=== PATIENT | male | born 1940 | race Caucasian/White ===

== ENCOUNTER 2017-02-05 11:11 | Emergency (ER) | payer MEDICARE ==
[~2017-02-05] VITALS: Ht 188 cm; Wt 101.5 kg
[~2017-02-05 11:11] MED LIST: ALBU18HF2 ORAL INH; ALLO300T74 PO; CITA-108 PO; FLUT1DIS3 ORAL INH; LORA10TA44 PO; MONT10TA25 PO; OMEP20TA2 PO; RANI150T7 PO; SULF1TAB42 PO; VIT-10 PO; [UNRECOGNIZED DRUG - CODE] PO
[2017-02-05 11:15] VITALS: Ht 188 cm; Wt 101.5 kg
--- OUTSIDE RECORDS SUMMARY | 2017-02-05 11:15 | XMS REPORT | Referral Summary ---
Author Author [facility] Organization [facility] Address Unknown Phone Unavailable Care Team Providers Care Manager Store Name Role Phone Oskar Wynne Primary Care Physician [phone] Encounter VC Date(s): 06/12/15 - 06/12/15 [facility] [address] [place] [address] [facility] Discharge Diagnosis: Mild persistent asthma with (acute) exacerbation Discharge Diagnosis: Acute frontal sinusitis, unspecified Discharge Disposition: 01-Home or Self Care Attending Physician: Provider, Immediate Care Admitting Physician: Provider, Immediate Care Vital Signs Most recent to 1 oldest [Reference Range]: Temperature Oral 36.3 degC [35.8-37.3 degC] (06/12/15 1:59 PM) Peripheral Pulse 78 bpm Rate [60-100 bpm] (06/12/15 1:59 PM) Blood Pressure 156/65 mmHg [90-140/60-90 mmHg] *HI* (06/12/15 1:59 PM) SpO2 94 % (06/12/15 1:59 PM) Problem List Condition Effective Dates Status Health Status Informant Aching Active headache(Confirmed) Acute Active bronchitis(Confirmed ) COPD Active exacerbation(Confirm ed) Acute Active anxiety(Confirmed) Benign essential Active hypertension(Confirm ed) Bladder Active problem(Confirmed) Bladder Active stones(Confirmed) Bronchitis(Confirmed Active ) Chicken Active pox(Confirmed) Depression(Confirmed Active ) Depression(Confirmed Active ) Dizziness(Confirmed) Active Atypical Active nevi(Confirmed) Exposure to Active excessive natural heat(Confirmed) Fatty Active liver(Confirmed) Gout(Confirmed) Active Hepatitis(Confirmed) Active Hypercalcemia(Confir Active med) Hypertension(Confirm Active ed) Jaundice(Confirmed) Active Kidney Active disease(Confirmed) Kidney Active stones(Confirmed) Lower back Active pain(Confirmed) Methicillin Active resistant Staphylococcus aureus(Confirmed) 2 Asthma(Confirmed) Active Overweight(Confirmed Active ) Prostatism(Confirmed Active ) Renal Active insufficiency(Confir med) RLS (restless legs Active syndrome)(Confirmed) Seizures(Confirmed)1971 Active Sinus Active infections(Confirmed ) 1Urine from NOT FOUND collected 06/02/15 14:30:00 CDT 2Abscess from Back collected 08/07/14 14:34:00 CDT 3none since 1971 Allergies, Adverse Reactions, Alerts No Known Medication Allergies Medications Advair Diskus 250 mcg-50 mcg inhalation powder 1 puffs, Inhalation, Daily, # 3 Each, 1 Refill(s), Pharmacy: [facility] Start Date: 10/06/15 Status: Ordered albuterol CFC free 90 mcg/inh inhalation aerosol 1 puffs, Inhalation, q4hr, as needed for wheezing, # 18 g, 0 Refill(s) Start Date: 06/01/14 Status: Ordered allopurinol 300 mg oral tablet 300 mg 1 tabs, Oral, Daily, Fax to [employer] , # 90 tabs, 1 Refill(s), Pharmacy: [facility], 1 tabs Oral Daily,Instr:Fax to [employer] Start Date: 10/06/15 Status: Ordered CeleXA 40 mg oral tablet 40 mg 1 tabs, Oral, Daily, fax to [employer] , # 90 tabs, 1 Refill(s), [facility], 1 tabs Oral Daily,Instr:fax to [employer] Start Date: 10/06/15 Status: Ordered lisinopril-hydrochlorothiazide 20 mg-25 mg oral tablet 1 tabs, Oral, Daily, Fax to [phone], # 90 tabs, 1 Refill(s), [facility] Start Date: 10/06/15 Status: Ordered meloxicam 7.5 mg oral tablet 7.5 mg 1 tabs, Oral, BID, # 40 tabs, 0 Refill(s), Pharmacy: [facility] # [id number], 1 tabs Oral BID,x20 days Start Date: 10/05/15 Stop Date: 10/25/15 Status: Ordered Nasacort AQ 1 sprays, Nasal, Daily, 0 Refill(s) Start Date: 06/18/15 Status: Ordered Singulair 10 mg oral tablet 10 mg 1 tabs, Oral, qPM, # 90 tabs, 1 Refill(s), Pharmacy: [facility], 1 tabs Oral qPM Start Date: 10/06/15 Status: Ordered Vitamin B12 0 Refill(s) Start Date: 10/05/15 Status: Ordered Vitamin C 0 Refill(s) Start Date: 06/02/15 Status: Ordered Zantac 150 oral tablet 1 tabs, Oral, Bedtime (once a day), # 30 tabs, 0 Refill(s) Start Date: 04/13/14 Status: Ordered Results No data available for this section Immunizations Vaccine Date Refusal Reason tetanus/diphth/pertuss (Tdap) adult/adol 01/05/10 tetanus-diphth toxoids (Td) adult/adol 11/21/95 Procedures Procedure Date Related Diagnosis Body Site S/P parathyroidectomy 07/2010 laceration repair L thumb 01/05/10 S/P colonoscopy with polypectomy1 11/26/09 S/P bilateral cataract extraction 2007 open removal of kidney stone on right 1998 S/P cardiac catheterization 1996 H/O umbilical hernia repair 1979 S/P operative procedure on shoulder, left 1959 H/O circumcision H/O lithotripsy x4-5, bilateral prostate surgery S/P vasectomy 1showed hyperplastic polyp; plan repeat in 10 years (11/26/2019), however pt will be 79 years of age and risk may outweigh benefit to pt Social History Social History Type Response Smoking Status Former smoker; Type: Cigarettes Assessment and Plan Extracted from: Title: Sinusitis 10192 Author: Roberto Edwards MD Date: 06/12/15 Assessment/Plan 1.Acute frontal sinusitis, unspecified I do think he has a persistent bacterial infection that is not resolved. It's possible this could even be sphenoid sinusitis as well as frontal sinusitis. I certainly think antibiotic treatment is indicated. Mild persistent asthma with (acute) exacerbation Very minimally changed and he is not so tight that I think he needs steroids or other aggressive therapy. No other signs of respiratory insufficiency. Plan: I will have him begin Augmentin 875 twice a day. 20. I will also have him begin [id number] Flonase nasal spray, 2 sprays in each nostril twice a day for now. Continue all of his other medications and inhalers in therapy. If he worsens, get back here or see Dr. Wynne. Apparently he hasn't appointment to see Dr. Wynne this next week. Orders: amoxicillin-clavulanate, 1 tabs, Oral, q12hr, X 10 days, # 20 tabs, 0 Refill(s), Pharmacy: [facility] #[id number]
--- OUTSIDE RECORDS SUMMARY | 2017-02-05 11:16 | XMS REPORT | Referral Summary ---
Author Author [facility] Organization [facility] Address Unknown Phone Unavailable Care Team Providers Care Russian Teacher Name Role Phone Oskar Wynne Primary Care Physician [phone] Encounter VC Date(s): 07/28/16 - 07/28/16 [facility] [address] [place], [place] [address] Discharge Diagnosis: Anemia Discharge Diagnosis: Atypical chest pain Discharge Disposition: 01-Home or Self Care Attending Physician: Tracy Oconnor MD Admitting Physician: Tracy Oconnor MD Referring Physician: Emeka Wynne MD Vital Signs Most recent to 1 oldest [Reference Range]: Peripheral Pulse 72 bpm Rate [60-100 bpm] (07/28/16 9:20 AM) Blood Pressure 136/58 mmHg [90-140/60-90 mmHg] (07/28/16 9:20 AM) Problem List Condition Effective Dates Status Health [...] back Active pain(Confirmed) Methicillin Active resistant Staphylococcus aureus(Confirmed)1, 2, 3 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) Asthma(Confirmed) Active Overweight(Confirmed Active ) Prostatism(Confirmed Active ) Renal Active insufficiency(Confir med) RLS (restless legs Active syndrome)(Confirmed) Seizures(Confirmed)1971 Active Sinus Active infections(Confirmed ) 1Urine from NOT FOUND collected 01/31/16 10:48:00 CDT 2Urine from NOT FOUND collected 06/02/15 14:30:00 CDT 3Abscess from Back collected 08/07/14 14:34:00 CDT 4none since 1971 Allergies, Adverse Reactions, Alerts No Known Medication Allergies Medications Advair Diskus 250 mcg-50 mcg inhalation powder 1 puffs, Inhalation, Daily, # 3 Each, 1 Refill(s), Pharmacy: [facility] Start Date: 10/06/15 Status: Ordered albuterol CFC free 90 mcg/inh inhalation aerosol 1 puffs, Inhalation, q4hr, as needed for wheezing, # 18 g, 0 Refill(s) Start Date: 06/01/14 Status: Ordered allopurinol 300 mg oral tablet 300 mg 1 tabs, Oral, Daily, Fax to [employer] , # 90 tabs, 1 Refill(s), Pharmacy: [facility], 1 tabs Oral Daily,Instr:Fax to [employer] Start Date: 05/02/16 Status: Ordered Bactrim DS 800 mg-160 mg oral tablet 1 tabs, Oral, Daily, # 90 tabs, 1 Refill(s), Pharmacy: [facility] Start Date: 05/02/16 Status: Ordered citalopram 40 mg oral tablet See Instructions, TAKE 1 TABLET EVERY DAY, # 90 tabs, 1 Refill(s), eRx: [facility], TAKE 1 TABLET EVERY DAY Start Date: 04/17/16 Status: Ordered lisinopril-hydrochlorothiazide 20 mg-25 mg oral tablet 1 tabs, Oral, Daily, Fax to [phone], # 90 tabs, 1 Refill(s), Pharmacy: [facility] Start Date: 05/02/16 Status: Ordered Nasacort AQ 1 sprays, Nasal, Daily, 0 Refill(s) Start Date: 06/18/15 Status: Ordered NuLYTELY with Flavor Packs oral powder for reconstitution 240 mL, Oral, q15min, # 4,000 mL, 0 Refill(s), Pharmacy: [facility] # [id number] Start Date: 07/28/16 Status: Ordered omeprazole 20 mg oral delayed release capsule 20 mg 1 caps, Oral, Daily, 0 Refill(s) Start Date: 05/16/16 Status: Ordered Singulair 10 mg oral tablet 10 mg 1 tabs, Oral, qPM, # 90 tabs, 1 Refill(s), Pharmacy: [facility], 1 tabs Oral qPM Start Date: 05/02/16 Status: Ordered Vitamin B Complex 100 0 Refill(s) Start Date: 05/23/16 Status: Ordered Zantac 150 oral tablet 1 [...] Type Response Smoking Status Former smoker; Type: Cigarettes; Type: Pipe; Number of years : 15 Assessment and Plan No data available for this section
--- OUTSIDE RECORDS SUMMARY | 2017-02-05 11:16 | XMS REPORT | Referral Summary ---
Author Author [facility] Organization [facility] Address Unknown Phone Unavailable Care Team Providers Care Supervisor Plasma Name Role Phone Oskar Wynne Primary Care Physician [phone] Encounter Date(s): 08/02/16 - 08/02/16 [facility] [address] [place], [place] [address] Discharge Diagnosis: Hiatal hernia Discharge Diagnosis: Colon polyps Discharge Disposition: 01-Home or Self Care Attending Physician: Tracy Oconnor MD Admitting Physician: Tracy Oconnor MD Vital Signs Most recent to 1 oldest [Reference Range]: Temperature Oral 36.6 degC [35.8-37.3 degC] (08/02/16 7:40 AM) Peripheral Pulse 63 bpm Rate [60-100 bpm] (08/02/16 7:40 AM) Respiratory Rate 18 br/min [14-20 br/min] (08/02/16 7:40 AM) Blood Pressure 117/69 mmHg [90-140/60-90 mmHg] (08/02/16 7:40 AM) SpO2 97 % (08/02/16 7:40 AM) Problem List Condition Effective Dates Status [...] Daily, # 3 Each, 1 Refill(s), Pharmacy: [facility] Start Date: 10/06/15 Status: Ordered albuterol CFC free 90 mcg/inh inhalation aerosol 1 puffs, Inhalation, q4hr, as needed for wheezing, # 18 g, 0 Refill(s) Start Date: 06/01/14 Status: Ordered allopurinol 300 mg oral tablet 300 mg 1 tabs, Oral, Daily, Fax to [employer] , # 90 tabs, 1 Refill(s), Pharmacy: [facility], 1 tabs Oral Daily,Instr:Fax to [employer] Start Date: 05/02/16 Status: Ordered Bactrim DS 800 mg-160 mg oral tablet 1 tabs, Oral, Daily, # 90 tabs, 1 Refill(s), Pharmacy: [facility] Start Date: 05/02/16 Status: Ordered citalopram 40 mg oral tablet See Instructions, TAKE 1 TABLET EVERY DAY, # 90 tabs, 1 Refill(s), eRx: [facility], TAKE 1 TABLET EVERY DAY Start Date: 04/17/16 Status: Ordered lisinopril-hydrochlorothiazide 20 mg-25 mg oral tablet 1 tabs, Oral, Daily, Fax to [phone], # 90 tabs, 1 Refill(s), Pharmacy: [facility] Start Date: 05/02/16 Status: Ordered Nasacort AQ 1 sprays, Nasal, Daily, 0 Refill(s) Start Date: 06/18/15 Status: Ordered omeprazole 20 mg oral delayed release capsule 20 mg 1 caps, Oral, Daily, 0 Refill(s) Start Date: 05/16/16 Status: Ordered Singulair 10 mg oral tablet 10 mg 1 tabs, Oral, qPM, # 90 tabs, 1 Refill(s), Pharmacy: [facility], 1 tabs Oral [...] of years : 15 Assessment and Plan Extracted from: Title: Ambulatory Patient Education Author: Tracy Oconnor MD Date: Emergency Medicine Hiatal Hernia A hiatal hernia occurs when part of your stomach slides above the muscle that separates your abdomen from your chest (diaphragm). You can be born with a hiatal hernia (congenital), or it may develop over time. In almost all cases of hiatal hernia, only the top part of the stomach pushes through. Many people have a hiatal hernia with no symptoms. The larger the hernia, the more likely that you will have symptoms. In some cases, a hiatal hernia allows stomach acid to flow back into the tube that carries food from your mouth to your stomach (esophagus). This may cause heartburn symptoms. Severe heartburn symptoms may mean you have developed a condition called gastroesophageal reflux disease (GERD). CAUSES Hiatal hernias are caused by a weakness in the opening (hiatus) where your esophagus passes through your diaphragm to attach to the upper part of your stomach. You may be born with a weakness in your hiatus, or a weakness can develop. RISK FACTORS Older age is a major risk factor for a hiatal hernia. Anything that increases pressure on your diaphragm can also increase your risk of a hiatal hernia. This includes: . Excess weight. Frequent constipation. SIGNS AND SYMPTOMS People with a hiatal hernia often have no symptoms. If symptoms develop, they are almost always caused by GERD. They may include: Heartburn. Belching. Indigestion. Trouble swallowing. Coughing or wheezing. Sore throat. Hoarseness. Chest pain. DIAGNOSIS A hiatal hernia is sometimes found during an exam for another problem. Your health care provider may suspect a hiatal hernia if you have symptoms of GERD. Tests may be done to diagnose GERD. These may include: X-rays of your stomach or chest. An upper gastrointestinal (GI) series. This is an X-ray exam of your GI tract involving the use of a chalky liquid that you swallow. The liquid shows up clearly on the X-ray. Endoscopy. This is a procedure to look into your stomach using a thin, flexible tube that has a tiny camera and light on the end of it. TREATMENT If you have no symptoms, you may not need treatment. If you have symptoms, treatment may include: Dietary and lifestyle changes to help reduce GERD symptoms. Medicines. These may include: Yzal-lrx-gkabvqk antacids. Medicines that make your stomach empty more quickly. Medicines that block the production of stomach acid (H2 blockers). Stronger medicines to reduce stomach acid (proton pump inhibitors). You may need surgery to repair the hernia if other treatments are not helping. HOME CARE INSTRUCTIONS Take all medicines as directed by your health care provider. Quit smoking, if you smoke. Try to achieve and maintain a healthy body weight. Eat frequent small meals instead of three large meals a day. This keeps your stomach from getting too full. Eat slowly. Do not lie down right after eating. Do noteat 12 hours before bed. Do not drink beverages with caffeine. These include cola, coffee, cocoa, and tea. Do not drink alcohol. Avoid foods that can make symptoms of GERD worse. These may include: Fatty foods. [place] fruits. Other foods and drinks that contain acid. Avoid putting pressure on your belly. Anything that puts pressure on your belly increases the amount of acid that may be pushed up into your esophagus. Avoid bending over, especially after eating. Raise the head of your bed by putting blocks under the legs. This keeps your head and esophagus higher than your stomach. Do not wear tight clothing around your chest or stomach. Try not to strain when having a bowel movement, when urinating, or when lifting heavy objects. SEEK MEDICAL CARE IF: Your symptoms are not controlled with medicines or lifestyle changes. You are having trouble swallowing. You have coughing or wheezing that will not go away. SEEK IMMEDIATE MEDICAL CARE IF: Your pain is getting worse. Your pain spreads to your arms, neck, jaw, teeth, or back. You have shortness of breath. You sweat for no reason. You feel sick to your stomach (nauseous) or vomit. You vomit blood. You have bright red blood in your stools. You have black, tarry stools. This information is not intended to replace advice given to you by your health care provider. Make sure you discuss any questions you have with your health care provider. Document Released: 12/14/2004 Document Revised: 10/15/2015 Document Reviewed: [employer] Interactive Patient Education 2016 [employer] Family Medicine Colon Polyps Polyps are lumps of extra tissue growing inside the body. Polyps can grow in the large intestine (colon). Most colon polyps are noncancerous (benign). However, some colon polyps can become cancerous over time. Polyps that are larger than a pea may be harmful. To be safe, caregivers remove and test all polyps. CAUSES Polyps form when mutations in the genes cause your cells to grow and divide even though no more tissue is needed. RISK FACTORS There are a number of risk factors that can increase your chances of getting colon polyps. They include: Being older than 50 years. Family history of colon polyps or colon cancer. Long-term colon diseases, such as colitis or Crohn disease. Being overweight. Smoking. Being inactive. Drinking too much alcohol. SYMPTOMS Most small polyps do not cause symptoms. If symptoms are present, they may include: Blood in the stool. The stool may look dark red or black. Constipation or diarrhea that lasts longer than 1 week. DIAGNOSIS People often do not know they have polyps until their caregiver finds them during a regular checkup. Your caregiver can use 4 tests to check for polyps: Digital rectal exam. The caregiver wears gloves and feels inside the rectum. This test would find polyps only in the rectum. Barium enema. The caregiver puts a liquid called barium into your rectum before taking X-rays of your colon. Barium makes your colon look white. Polyps are dark, so they are easy to see in the X-ray pictures. Sigmoidoscopy. A thin, flexible tube (sigmoidoscope) is placed into your rectum. The sigmoidoscope has a light and tiny camera in it. The caregiver uses the sigmoidoscope to look at the last third of your colon. Colonoscopy. This test is like sigmoidoscopy, but the caregiver looks at the entire colon. This is the most common method for finding and removing polyps. TREATMENT Any polyps will be removed during a sigmoidoscopy or colonoscopy. The polyps are then tested for cancer. PREVENTION To help lower your risk of getting more colon polyps: Eat plenty of fruits and vegetables. Avoid eating fatty foods. Do not smoke. Avoid drinking alcohol. Exercise every day. Lose weight if recommended by your caregiver. Eat plenty of calcium and folate. Foods that are rich in calcium include milk, cheese, and broccoli. Foods that are rich in folate include chickpeas, kidney beans, and spinach. HOME CARE INSTRUCTIONS Keep all follow-up appointments as directed by your caregiver. You may need periodic exams to check for polyps. SEEK MEDICAL CARE IF: You notice bleeding during a bowel movement. This information is not intended to replace advice given to you by your health care provider. Make sure you discuss any questions you have with your health care provider. Document Released: 06/20/2005 Document Revised: 10/15/2015 Document Reviewed: [employer] Interactive Patient Education 2016 [employer] No follow up information was provided.
--- OUTSIDE RECORDS SUMMARY | 2017-02-05 11:16 | XMS REPORT | Referral Summary ---
Author Author [facility] Organization [facility] Address Unknown Phone Unavailable Care Team Providers Care Wrapper Sorter Name Role Phone Oskar Wynne Primary Care Physician [phone] Encounter Date(s): 06/02/16 - 06/02/16 [facility] [address] [place], [place] [address] Discharge Disposition: 01-Home or Self Care Attending Physician: Michele Gonzalez MD Admitting Physician: Michele Gonzalez MD Vital Signs Most recent to 1 oldest [Reference Range]: Peripheral Pulse 57 bpm Rate [60-100 bpm] *LOW* (06/02/16 12:39 PM) Blood Pressure 142/71 mmHg [90-140/60-90 mmHg] *HI* (06/02/16 12:39 PM) Problem List Condition Effective Dates Status [...] insufficiency(Confir med) RLS (restless legs Active syndrome)(Confirmed) Seizures(Confirmed)4 1972 Active Sinus Active infections(Confirmed ) 1Urine from NOT FOUND collected 01/31/16 10:48:00 CDT 2Urine from NOT FOUND collected 06/02/15 14:30:00 CDT 3Abscess from Back collected 08/07/14 14:34:00 CDT 4none since 1971 Allergies, Adverse Reactions, Alerts No Known Medication Allergies Medications Advair Diskus 250 mcg-50 mcg inhalation powder 1 puffs, Inhalation, Daily, # 3 Each, 1 Refill(s), Pharmacy: [facility] Start Date: 10/06/15 Status: Ordered albuterol CFC free 90 mcg/inh inhalation aerosol 1 puffs, Inhalation, q4hr, as needed for wheezing, # 18 g, 0 Refill(s) Start Date: 06/01/14 Status: Ordered allopurinol 300 mg oral tablet 300 mg 1 tabs, Oral, Daily, Fax to [employer] , # 90 tabs, 1 Refill(s), Pharmacy: [facility], 1 tabs Oral Daily,Instr:Fax to [employer] Start Date: 05/02/16 Status: Ordered Bactrim DS 800 mg-160 mg oral tablet 1 tabs, Oral, Daily, # 90 tabs, 1 Refill(s), Pharmacy: [facility] Start Date: 05/02/16 Status: Ordered citalopram 40 mg oral tablet See Instructions, TAKE 1 TABLET EVERY DAY, # 90 tabs, 1 Refill(s), eRx: [facility], TAKE 1 TABLET EVERY DAY Start Date: 04/17/16 Status: Ordered lisinopril-hydrochlorothiazide 20 mg-25 mg oral tablet 1 tabs, Oral, Daily, Fax to [phone], # 90 tabs, 1 Refill(s), Pharmacy: [facility] Start Date: 05/02/16 Status: Ordered Nasacort AQ 1 sprays, Nasal, Daily, 0 Refill(s) Start Date: 06/18/15 Status: Ordered omeprazole 20 mg oral delayed release capsule 20 mg 1 caps, Oral, Daily, 0 Refill(s) Start Date: 05/16/16 Status: Ordered Singulair 10 mg oral tablet 10 mg 1 tabs, Oral, qPM, # 90 tabs, 1 Refill(s), Pharmacy: [facility], 1 tabs Oral qPM [...] Former smoker; Type: Cigarettes Assessment and Plan No data available for this section
--- OUTSIDE RECORDS SUMMARY | 2017-02-05 11:16 | XMS REPORT | Referral Summary ---
Author Author [facility] Organization [facility] Address Unknown Phone Unavailable Care Team Providers Care Payroll Tax Specialist Name Role Phone Oskar Wynne Primary Care Physician [phone] Encounter VC Date(s): 08/22/16 - 08/22/16 [facility] [address] [place] [address] Discharge Disposition: 01-Home or Self Care Attending Physician: Emeka Wynne MD Admitting Physician: Emeka Wynne MD Vital Signs Most recent to 1 oldest [Reference Range]: Blood Pressure 134/62 mmHg [90-140/60-90 mmHg] (08/22/16 2:28 PM) Problem List Condition Effective Dates Status [...] Daily, # 3 Each, 1 Refill(s), Pharmacy: [facility] Start Date: 10/06/15 Status: Ordered albuterol CFC free 90 mcg/inh inhalation aerosol 1 puffs, Inhalation, q4hr, as needed for wheezing, # 18 g, 0 Refill(s) Start Date: 06/01/14 Status: Ordered allopurinol 300 mg oral tablet 300 mg 1 tabs, Oral, Daily, Fax to [facility] , # 90 tabs, 1 Refill(s), Pharmacy: [facility], 1 tabs Oral Daily,Instr:Fax to [facility] Start Date: 05/02/16 Status: Ordered Bactrim DS 800 mg-160 mg oral tablet 1 tabs, Oral, Daily, # 90 tabs, 1 Refill(s), Pharmacy: [facility] Start Date: 05/02/16 Status: Ordered citalopram 40 mg oral tablet See Instructions, TAKE 1 TABLET EVERY DAY, # 90 tabs, 1 Refill(s), eRx: [facility], TAKE 1 TABLET EVERY DAY Start Date: 04/17/16 Status: Ordered lisinopril-hydrochlorothiazide 20 mg-25 mg oral tablet 1 tabs, Oral, Daily, Fax to [phone], # 90 tabs, 1 Refill(s), Pharmacy: [facility] Start Date: 05/02/16 Status: Ordered Mobic 7.5 mg oral tablet 7.5 mg 1 tabs, Oral, BID, # 60 tabs, 1 Refill(s), Pharmacy: [facility] # [id number], 1 tabs Oral BID Start Date: 08/22/16 Status: Ordered Nasacort AQ 1 sprays, Nasal, Daily, 0 Refill(s) Start Date: 06/18/15 Status: Ordered omeprazole 20 mg oral delayed release capsule 20 mg 1 caps, Oral, Daily, 0 Refill(s) Start Date: 05/16/16 Status: Ordered Singulair 10 mg oral tablet 10 mg 1 tabs, Oral, qPM, # 90 tabs, 1 Refill(s), Pharmacy: [facility], 1 tabs Oral qPM Start Date: 05/02/16 Status: Ordered Vitamin B Complex 100 0 Refill(s) Start Date: 05/23/16 Status: Ordered Vitamin C Daily, 0 Refill(s) Start Date: 08/22/16 Status: Ordered Zantac 150 oral tablet 1 tabs, Oral, Bedtime (once a day), # 30 tabs, 0 Refill(s) Start Date: 04/13/14 Status: Ordered Results No data available for this section Immunizations Vaccine Date Refusal Reason tetanus/diphth/pertuss (Tdap) adult/adol 01/05/10 tetanus-diphth toxoids (Td) adult/adol 11/21/95 Procedures Procedure Date Related Diagnosis Body Site Colonoscopy 08/02/16 S/P parathyroidectomy 07/2010 laceration repair L thumb [...] Extracted from: Title: Ambulatory Patient Education Author: Emeka Wynne MD Date: Family Medicine Joint Pain Joint pain, which is also called arthralgia, can be caused by many things. Joint pain often goes away when you follow your health care provider's instructions for relieving pain at home. However, joint pain can also be caused by conditions that require further treatment. Common causes of joint pain include: Bruising in the area of the joint. Overuse of the joint. Wear and tear on the joints that occur with aging (osteoarthritis). Various other forms of arthritis. A buildup of a crystal form of uric acid in the joint (gout). Infections of the joint (septic arthritis) or of the bone (osteomyelitis) . Your health care provider may recommend medicine to help with the pain. If your joint pain continues, additional tests may be needed to diagnose your condition. HOME CARE INSTRUCTIONS Watch your condition for any changes. Follow these instructions as directed to lessen the pain that you are feeling. Take medicines only as directed by your health care provider. Rest the affected area for as long as your health care provider says that you should. If directed to do so, raise the painful joint above the level of your heart while you are sitting or lying down. Do not do things that cause or worsen pain. If directed, apply ice to the painful area: Put ice in a plastic bag. Place a towel between your skin and the bag. Leave the ice on for 20 minutes, 23 times per day. Wear an elastic bandage, splint, or sling as directed by your health care provider. Loosen the elastic bandage or splint if your fingers or toes become numb and tingle, or if they turn cold and blue. Begin exercising or stretching the affected area as directed by your health care provider. Ask your health care provider what types of exercise are safe for you. Keep all follow-up visits as directed by your health care provider. This is important. SEEK MEDICAL CARE IF: Your pain increases, and medicine does not help. Your joint pain does not improve within 3 days. You have increased bruising or swelling. You have a fever. You lose 10 lb (4.5 kg) or more without trying. SEEK IMMEDIATE MEDICAL CARE IF: You are not able to move the joint. Your fingers or toes become numb or they turn cold and blue. This information is not intended to replace advice given to you by your health care provider. Make sure you discuss any questions you have with your health care provider. Document Released: 09/24/2006 Document Revised: 10/15/2015 Document Reviewed: [employer] Patient Education 2016 [employer] Procedures Heat Therapy Heat therapy can help ease sore, stiff, injured, and tight muscles and joints. Heat relaxes your muscles, which may help ease your pain. RISKS AND COMPLICATIONS If you have any of the following conditions, do not use heat therapy unless your health care provider has approved: Poor circulation. Healing wounds or scarred skin in the area being treated. Diabetes, heart disease, or high blood pressure. Not being able to feel (numbness) the area being treated. Unusual swelling of the area being treated. Active infections. Blood clots. Cancer. Inability to communicate pain. This may include young children and people who have problems with their brain function (dementia). . Heat therapy should only be used on old, pre-existing, or long-lasting (chronic ) injuries. Do not use heat therapy on new injuries unless directed by your health care provider. HOW TO USE HEAT THERAPY There are several different kinds of heat therapy, including: Moist heat pack. Warm water bath. Hot water bottle. Electric heating pad. Heated gel pack. Heated wrap. Electric heating pad. Use the heat therapy method suggested by your health care provider. Follow your health care provider's instructions on when and how to use heat therapy. GENERAL HEAT THERAPY RECOMMENDATIONS Do not sleep while using heat therapy. Only use heat therapy while you are awake. Your skin may turn pink while using heat therapy. Do not use heat therapy if your skin turns red. Do not use heat therapy if you have new pain. High heat or long exposure to heat can cause amezcua. Be careful when using heat therapy to avoid burning your skin. Do not use heat therapy on areas of your skin that are already irritated , such as with a rash or sunburn. SEEK MEDICAL CARE IF: You have blisters, redness, swelling, or numbness. You have new pain. Your pain is worse. MAKE SURE YOU: Understand these instructions. Will watch your condition. Will get help right away if you are not doing well or get worse. This information is not intended to replace advice given to you by your health care provider. Make sure you discuss any questions you have with your health care provider. Document Released: 12/16/2012 Document Revised: 10/15/2015 Document Reviewed: [employer] Patient Education 2016 [employer] No follow up information was provided. Extracted from: Title: Office Visit Note Author: Emeka Wynne MD Date: 08/22/16 Assessment/Plan Knee pain Awaiting the x-rays to be read. Rx for Mobic 7.5mg bid. Ordered: Office Visit Level 3 Est 47406 XR Knee 1 or 2 Views Bilateral
--- OUTSIDE RECORDS SUMMARY | 2017-02-05 11:16 | XMS REPORT | Referral Summary ---
Author Author [facility], [facility] Organization [facility] Address Unknown Phone Unavailable Care Team Providers Care Pacu Rn Name Role Phone Oskar Wynne Primary Care Physician [phone] Encounter Date(s): 04/26/16 - 04/26/16 [facility], [address] [place] [id number] Discharge Diagnosis: Dizzinesses Discharge Diagnosis: Exposure to excessive natural heat Discharge Diagnosis: History of recurrent UTI (urinary tract infection) Discharge Diagnosis: At risk of UTI Discharge Disposition: -Home or Self Care Attending Physician: Paul Kline PA-C Admitting Physician: Paul Kline PA-C Vital Signs Most recent to 1 oldest [Reference Range]: Temperature Tympanic 36.9 degC [36.6-38.1 degC] (04/26/16 1:36 PM) Peripheral Pulse 75 bpm Rate [60-100 bpm] (04/26/16 1:36 PM) Blood Pressure 132/58 mmHg [90-140/60-90 mmHg] (04/26/16 1:36 PM) SpO2 97 % (04/26/16 1:36 PM) Problem List Condition Effective Dates Status [...] Methicillin Active resistant Staphylococcus aureus(Confirmed)1, 2, 3 Asthma(Confirmed) Active Overweight(Confirmed Active ) Prostatism(Confirmed Active [...] Daily, # 3 Each, 1 Refill(s), Pharmacy: [facility] Start Date: 10/06/15 Status: Ordered albuterol CFC free 90 mcg/inh inhalation aerosol 1 puffs, Inhalation, q4hr, as needed for wheezing, # 18 g, 0 Refill(s) Start Date: 06/01/14 Status: Ordered allopurinol 300 mg oral tablet 300 mg 1 tabs, Oral, Daily, Fax to [facility] , # 90 tabs, 1 Refill(s), Pharmacy: [facility], 1 tabs Oral Daily,Instr:Fax to [facility] Start Date: 10/06/15 Status: Ordered Bactrim DS 800 mg-160 mg oral tablet 1 tabs, Oral, Daily, Start taking daily after finished with 14 day treatment, # 30 tabs, 1 Refill(s), Pharmacy: [facility] #[id number] Start Date: 02/03/16 Status: Ordered citalopram 40 mg oral tablet See Instructions, TAKE 1 TABLET EVERY DAY, # 90 tabs, 1 Refill(s), eRx: [facility], TAKE 1 TABLET EVERY DAY Start Date: 04/17/16 Status: Ordered lisinopril-hydrochlorothiazide 20 mg-25 mg oral tablet 1 tabs, Oral, Daily, Fax to [phone], # 90 tabs, 1 Refill(s), [facility] Start Date: 10/06/15 Status: Ordered meloxicam 7.5 mg oral tablet 7.5 mg 1 tabs, Oral, BID, # 40 tabs, 0 Refill(s), Pharmacy: [facility] # [id number], 1 tabs Oral BID,x20 days Start Date: 10/05/15 Stop Date: 10/25/15 Status: Ordered Nasacort AQ 1 sprays, Nasal, Daily, 0 Refill(s) Start Date: 06/18/15 Status: Ordered Singulair 10 mg oral tablet 10 mg 1 tabs, Oral, qPM, # 90 tabs, 1 Refill(s), Pharmacy: [facility], 1 tabs Oral qPM Start Date: 10/06/15 Status: Ordered Vitamin B12 0 Refill(s) Start Date: 10/05/15 Status: Ordered Zantac 150 oral tablet 1 tabs, Oral, Bedtime (once a day), # 30 tabs, 0 Refill(s) Start Date: 04/13/14 Status: Ordered Results Chemistry Most recent to 1 oldest [Reference Range]: Sodium Venous 140 mmol/L [136-145 mmol/L] (04/26/16 2:20 PM) Potassium Venous 3.7 mmol/L 1 [3.5-5.1 mmol/L] (04/26/16 2:20 PM) Calcium Ionized 1.18 mmol/L Venous [1.10-1.30 (04/26/16 2:20 PM) mmol/L] Total CO2 Venous 25 mmol/L [24-29 mmol/L] (04/26/16 2:20 PM) Glucose Venous 102 mg/dL [70-100 mg/dL] *HI* (04/26/16 2:20 PM) BUN Venous [8-26] 22 (04/26/16 2:20 PM) Creatinine Venous 1.3 mg/dL [0.7-1.3 mg/dL] (04/26/16 2:20 PM) Venous CL [98-109 100 mmol/L mmol/L] (04/26/16 2:20 PM) 1Result Comment: This test was performed on a whole blood specimen. The presence or absence of hemolysis cannot be assessed. Hemolysis can falsely elevate potassium levels. Normals are for venous specimens only. Urinalysis Most recent to 1 oldest [Reference Range]: UA Color Yellow (04/26/16 2:15 PM) UA Appear Clear (04/26/16 2:15 PM) UA pH [5.0-8.0] 5.5 (04/26/16 2:15 PM) UA Leuk Est Pos 1+ [Negative] *ABN* (04/26/16 2:15 PM) UA Nitrite Negative [Negative] (04/26/16 2:15 PM) UA Protein Negative [Negative] (04/26/16 2:15 PM) UA Glucose Negative [Negative] (04/26/16 2:15 PM) UA Ketones Negative [Negative] (04/26/16 2:15 PM) UA Urobilinogen 0.2 mg/dL [<=1.0 mg/dL] (04/26/16 2:15 PM) UA Bili [Negative] Negative (04/26/16 2:15 PM) UA Blood [Negative] Trace *ABN* (04/26/16 2:15 PM) UA Spec Grav 1.010 [1.003-1.030] (04/26/16 2:15 PM) Type Cl Catch (04/26/16 2:15 PM) UA WBC [0-4] 2-4 (04/26/16 2:15 PM) UA RBC [0-2] 0-2 (04/26/16 2:15 PM) Epithelial Cells 0-2 (04/26/16 2:15 PM) Immunizations Vaccine Date Refusal Reason tetanus/diphth/pertuss (Tdap) [...]
--- OUTSIDE RECORDS SUMMARY | 2017-02-05 11:16 | XMS REPORT | Referral Summary ---
Author Author [facility], [facility] Organization [facility] Address Unknown Phone Unavailable Care Team Providers Care Entertainment Lawyer Name Role Phone Oskar Wynne Primary Care Physician [phone] Encounter VC Date(s): 11/27/16 - 11/27/16 [facility] [address] [place] [address] Discharge Diagnosis: Kidney disease Discharge Diagnosis: Asthma Discharge Diagnosis: Benign essential hypertension Discharge Disposition: 01-Home or Self Care Attending Physician: Emeka Wynne MD Admitting Physician: Emeka Wynne MD Vital Signs Most recent to 1 oldest [Reference Range]: Temperature Tympanic 36.9 degC [36.6-38.1 degC] (11/27/16 1:14 PM) Blood Pressure 124/50 mmHg [90-140/60-90 mmHg] (11/27/16 1:14 PM) Problem List Condition Effective Dates Status [...] Advair Diskus 250 mcg-50 mcg inhalation powder See Instructions, INHALE ONE PUFF BY MOUTH DAILY, # 180 unknown unit, eRx: [facility] #[id number] Start Date: 10/25/16 Status: Ordered albuterol CFC free 90 mcg/inh inhalation aerosol 1 puffs, Inhalation, q4hr, as needed for wheezing, # 18 g, 0 Refill(s) Start Date: 06/01/14 Status: Ordered allopurinol 300 mg oral tablet 300 mg 1 tabs, Oral, Daily, Fax to [facility] /PT. NEEDS AN PPT. PRIOR TO NEXT FILL., # 90 tabs, 0 Refill(s), Pharmacy: [email or web address], 1 tabs Oral Daily,Instr:Fax to [facility] /PT. NEEDS AN PPT. PRIOR TO... Start Date: 11/09/16 Status: Ordered Citalopram 40 mg oral tablet See Instructions, TAKE 1 TABLET EVERY DAY, # 90 tabs, 1 Refill(s), eRx: [email or web address] Start Date: 10/06/16 Status: Ordered Claritin 10 mg oral tablet 10 mg 1 tabs, Oral, Daily, # 30 tabs, 0 Refill(s) Start Date: 11/27/16 Status: Ordered lisinopril-hydrochlorothiazide 20 mg-25 mg oral tablet See Instructions, TAKE 1 TABLET EVERY DAY, # 90 tabs, 1 Refill(s), eRx: [email or web address] Start Date: 10/06/16 Status: Ordered Nasacort AQ 1 sprays, Nasal, Daily, 0 Refill(s) Start Date: 06/18/15 Status: Ordered Ocuvite Extra oral tablet 1 tabs, Oral, Daily, # 30 tabs, 0 Refill(s) Start Date: 11/27/16 Status: Ordered omeprazole 20 mg oral delayed release capsule 20 mg 1 caps, Oral, Daily, # 30 caps, 0 Refill(s), Pharmacy: [facility], 1 caps Oral Daily Start Date: 09/11/16 Status: Ordered Singulair 10 mg oral tablet 10 mg 1 tabs, Oral, qPM, # 90 tabs, 1 Refill(s), Pharmacy: [facility], 1 tabs Oral qPM Start Date: 10/26/16 Status: Ordered sulfamethoxazole-trimethoprim 800 mg-160 mg oral tablet See Instructions, TAKE 1 TABLET EVERY DAY, # 90 tabs, 1 Refill(s), eRx: [facility] Start Date: 10/06/16 Status: Ordered Vitamin B Complex 100 0 Refill(s) Start Date: 05/23/16 Status: Ordered Vitamin C Daily, 0 Refill(s) Start Date: 08/22/16 Status: Ordered Zantac 150 oral tablet 1 tabs, Oral, Bedtime (once a day), # 30 tabs, 0 Refill(s) Start Date: 04/13/14 Status: Ordered Results Hematology Most recent to 1 oldest [Reference Range]: WBC [4.8-10.8 8.2 10*3/uL 10*3/uL] (11/27/16 2:17 PM) RBC [4.60-6.20] 2.96 *LOW* (11/27/16 2:17 PM) Hgb [14.0-18.0 9.2 gm/dL gm/dL] *LOW* (11/27/16 2:17 PM) Hct [42.0-52.0 %] 27.7 % *LOW* (11/27/16 2:17 PM) MCV [82.0-99.0 fL] 93.6 fL (11/27/16 2:17 PM) MCH [27.0-32.0 pg] 31.1 pg (11/27/16 2:17 PM) MCHC [32.0-36.0 33.2 gm/dL gm/dL] (11/27/16 2:17 PM) RDW [11.5-14.5 %] 14.1 % (11/27/16 2:17 PM) Platelet [150-400 221 10*3/uL 10*3/uL] (11/27/16 2:17 PM) MPV [8.8-14.8 fL] 9.8 fL (11/27/16 2:17 PM) Immature 0.1 % Granulocytes (11/27/16: PM) [0.0-1.0 %] Neutrophils [51-75 72 % %] (11/27/16 2: PM) Lymphocytes [20-46 16 % %] *LOW* (11/27/16: PM) Monocytes [4-11 %] 10 % (11/27/16 2:17 PM) Eosinophils [0-4 %] 1 % (11/27/16 2: PM) Basophils [0-2 %] 1 % (11/27/16: PM) Neutro Absolute 5.84 [1.90-7.00] (11/27/16: PM) Lymph Absolute 1.33 [0.80-3.30] (11/27/16 2: PM) [place] Absolute 0.83 [0.30-1.00] (11/27/16: PM) Eos Absolute 0.11 [0.00-0.50] (11/27/16 2: PM) Baso Absolute 0.05 [0.00-0.20] (11/27/16: PM) Chemistry Most recent to 1 oldest [Reference Range]: Sodium Lvl [135-144 135 mEq/L mEq/L] (11/27/16: PM) Potassium Lvl 4.6 mEq/L [3.5-5.2 mEq/L] (11/27/16: PM) Chloride [99-111 112 mEq/L mEq/L] *HI* (11/27/16 2: PM) CO2 [23-31 mEq/L] 15 mEq/L *LOW* (11/27/16: PM) AGAP [3-20] 8 (11/27/16 2:17 PM) BUN [8-26 mg/dL] 54 mg/dL *HI* (11/27/16 2:17 PM) Glucose Lvl [70-99 103 mg/dL mg/dL] *HI* (11/27/16:17 PM) Creatinine Lvl 2.63 mg/dL [0.72-1.25 mg/dL] *HI* (11/27/16 2:17 PM) eGFR [>60 mL/min] 24 mL/min 1 *ABN* (11/27/16 2:17 PM) Calcium Lvl 8.2 mg/dL 2 [8.4-10.2 mg/dL] *LOW* (11/27/16 2:17 PM) Albumin Lvl [3.4-4.8 3.7 gm/dL gm/dL] (11/27/16 2:17 PM) Total Protein 6.9 gm/dL [6.0-7.6 gm/dL] (11/27/16 2:17 PM) Globulin [1.8-4.0 3.2 gm/dL gm/dL] (11/27/16 2:17 PM) ALT [0-55 U/L] 15 U/L (11/27/16 2:17 PM) AST [5-34 U/L] 14 U/L (11/27/16 2:17 PM) Alk Phos [40-150 91 U/L U/L] (11/27/16 2:17 PM) Bili Total [0.2-1.2 0.3 mg/dL mg/dL] (11/27/16 2:17 PM) Hgb A1c [4.1-5.6 %] 5.8 % *HI* (11/27/16 2:17 PM) eAvg Glucose 119.8 mg/dL (11/27/16 2:17 PM) 1Result Comment: Multiply eGFR results by 1.21 for race. 2Result Comment: Please note reference range change effective 11/10/2016. Urinalysis Most recent to 1 oldest [Reference Range]: UA Color Lt Yellow (11/27/16 2:20 PM) UA Appear Clear (11/27/16 2:20 PM) UA pH [5.0-8.0] 6.0 (11/27/16 2:20 PM) UA Leuk Est Trace [Negative] *ABN* (11/27/16 2:20 PM) UA Nitrite Negative [Negative] (11/27/16 2:20 PM) UA Protein Negative [Negative] (11/27/16 2:20 PM) UA Glucose Negative [Negative] (11/27/16 2:20 PM) UA Ketones Negative [Negative] (11/27/16 2:20 PM) UA Urobilinogen 0.2 mg/dL [<=1.0 mg/dL] (11/27/16 2:20 PM) UA Bili [Negative] Negative (11/27/16 2:20 PM) UA Blood [Negative] Trace *ABN* (11/27/16 2:20 PM) UA Spec Grav 1.015 [1.003-1.030] (11/27/16 2:20 PM) Type Clean Catch (11/27/16 2:20 PM) UA WBC [0-4] 2-5 1 (11/27/16 2:20 PM) UA RBC [0-2] 2-5 (11/27/16 2:20 PM) UA Bacteria Rare (11/27/16 2:20 PM) 1Result Comment: WBC clumps noted Immunizations Given and Recorded Vaccine Date Status Refusal Reason tetanus/diphth/pertuss (Tdap) adult/adol 01/05/10 Recorded tetanus-diphth toxoids (Td) adult/adol 11/21/95 Given Procedures Procedure Date Related Diagnosis Body Site [...]
--- OUTSIDE RECORDS SUMMARY | 2017-02-05 11:16 | XMS REPORT | Referral Summary ---
Author Author [facility], [facility] Organization [facility] Address Unknown Phone Unavailable Care Team Providers Care Area Operations Manager Name Role Phone Oskar Wynne Primary Care Physician [phone] Encounter VC Date(s): 02/09/16 - 02/09/16 [facility] [place], [address] [place] [address] Discharge Diagnosis: Fatigue Discharge Disposition: 01-Home or Self Care Attending Physician: Emeka Wynne MD Vital Signs Most recent to 1 oldest [Reference Range]: Blood Pressure 132/60 mmHg [90-140/60-90 mmHg] (02/09/16 11:06 AM) Problem List Condition Effective Dates Status [...] Daily, # 3 Each, 1 Refill(s), Pharmacy: [facility] Start Date: 10/06/15 Status: Ordered albuterol CFC free 90 mcg/inh inhalation aerosol 1 puffs, Inhalation, q4hr, as needed for wheezing, # 18 g, 0 Refill(s) Start Date: 06/01/14 Status: Ordered allopurinol 300 mg oral tablet 300 mg 1 tabs, Oral, Daily, [facility] , # [facility] tabs, 1 Refill(s), Pharmacy: [facility], 1 tabs Oral Daily,Instr:Fax to [facility] Start Date: 10/06/15 Status: Ordered Bactrim DS 800 mg-160 mg oral tablet 1 tabs, Oral, Daily, Start taking daily after finished with 14 day treatment, # 30 tabs, 1 Refill(s), Pharmacy: [facility] #[id number] Start Date: 02/03/16 Status: Ordered Bactrim DS 800 mg-160 mg oral tablet 1 tabs, Oral, BID, X 7 days, # 14 tabs, 0 Refill(s), Pharmacy: [facility] #[id number] Start Date: 02/03/16 Stop Date: 02/10/16 Status: Ordered CeleXA 40 mg oral tablet 40 mg 1 tabs, Oral, Daily, [facility] , # 90 tabs, 1 Refill(s), Pharmacy: [facility], 1 tabs Oral Daily,[facility] Start Date: 10/06/15 Status: Ordered lisinopril-hydrochlorothiazide 20 mg-25 mg oral tablet 1 tabs, Oral, Daily, Fax to [phone], # 90 tabs, 1 Refill(s), Pharmacy: [facility] Start Date: 10/06/15 Status: Ordered meloxicam 7.5 mg oral tablet 7.5 mg 1 tabs, Oral, BID, # 40 tabs, 0 Refill(s), Pharmacy: [facility] # [id number], 1 tabs Oral BID,x20 days Start Date: 10/05/15 Stop Date: 10/25/15 Status: Ordered Nasacort AQ 1 sprays, Nasal, Daily, 0 Refill(s) Start Date: 06/18/15 Status: Ordered Singulair 10 mg oral tablet 10 mg 1 tabs, Oral, qPM, # 90 tabs, 1 Refill(s), Pharmacy: [facility], 1 tabs Oral qPM Start Date: 10/06/15 Status: Ordered Vitamin B12 0 Refill(s) Start Date: 10/05/15 Status: Ordered Zantac 150 oral tablet 1 tabs, Oral, Bedtime (once a day), # 30 tabs, 0 Refill(s) Start Date: 04/13/14 Status: Ordered Results Urinalysis Most recent to 1 oldest [Reference Range]: UA Color Yellow (02/09/16 11:35 AM) UA Appear Clear (02/09/16 11:35 AM) UA pH [5.0-8.0] 5.5 (02/09/16 11:35 AM) UA Leuk Est Trace [Negative] *ABN* (02/09/16 11:35 AM) UA Nitrite Negative [Negative] (02/09/16 11:35 AM) UA Protein Negative [Negative] (02/09/16 11:35 AM) UA Glucose Negative [Negative] (02/09/16 11:35 AM) UA Ketones Negative [Negative] (02/09/16 11:35 AM) UA Urobilinogen 0.2 mg/dL [<=1.0 mg/dL] (02/09/16 11:35 AM) UA Bili [Negative] Negative (02/09/16 11:35 AM) UA Blood [Negative] Trace *ABN* (02/09/16 11:35 AM) UA Spec Grav 1.020 [1.003-1.030] (02/09/16 11:35 AM) Type Cl Catch (02/09/16 11:35 AM) UA WBC [0-4] 2-4 (02/09/16 11:35 AM) UA RBC [0-2] 0-2 (02/09/16 11:35 AM) Epithelial Cells 0-2 (02/09/16 11:35 AM) Immunizations Vaccine Date Refusal Reason tetanus/diphth/pertuss (Tdap) [...] Cigarettes Assessment and Plan Extracted from: Title: Normal UA Author: Jessica Harvey LPN Date: 02/09/16 Reported normal UA to pt. Extracted from: Title: Ambulatory Patient Education Author: Emeka Wynne MD Date: 02/08 Family Medicine Fatigue Fatigue is feeling tired all of the time, a lack of energy, or a lack of motivation. Occasional or mild fatigue is often a normal response to activity or life in general. However, long-lasting (chronic) or extreme fatigue may indicate an underlying medical condition. HOME CARE INSTRUCTIONS Watch your fatigue for any changes. The following actions may help to lessen any discomfort you are feeling: Talk to your health care provider about how much sleep you need each night. Try to get the required amount every night. Take medicines only as directed by your health care provider. Eat a healthy and nutritious diet. Ask your health care provider if you need help changing your diet. Drink enough fluid to keep your urine clear or pale yellow. Practice ways of relaxing, such as yoga, meditation, massage therapy, or acupuncture. Exercise regularly. Change situations that cause you stress. Try to keep your work and personal routine reasonable. Do not abuse illegal drugs. Limit alcohol intake to no more than 1 drink per day for non women and 2 drinks per day for men. One drink equals 12 ounces of beer, 5 ounces of wine, or 1 ounces of hard liquor. Take a multivitamin, if directed by your health care provider. SEEK MEDICAL CARE IF: Your fatigue does not get better. You have a fever. You have unintentional weight loss or gain. You have headaches. You have difficulty: Falling asleep. Sleeping throughout the night. You feel angry, guilty, anxious, or sad. You are unable to have a bowel movement (constipation). You skin is dry. Your legs or another part of your body is swollen. SEEK IMMEDIATE MEDICAL CARE IF: You feel confused. Your vision is blurry. You feel faint or pass out. You have a severe headache. You have severe abdominal, pelvic, or back pain. You have chest pain, shortness of breath, or an irregular or fast heartbeat. You are unable to urinate or you urinate less than normal. You develop abnormal bleeding, such as bleeding from the rectum, vagina, nose, lungs, or nipples. You vomit blood. You have thoughts about harming yourself or committing suicide. You are worried that you might harm someone else. This information is not intended to replace advice given to you by your health care provider. Make sure you discuss any questions you have with your health care provider. Document Released: 07/21/2008 Document Revised: 07/13/2015 Document Reviewed: [facility] Patient Information 2015 [facility]. Weakness Weakness is a lack of strength. It may be felt all over the body (generalized) or in one specific part of the body (focal). Some causes of weakness can be serious. You may need further medical evaluation, especially if you are elderly or you have a history of immunosuppression (such as chemotherapy or HIV), kidney disease, heart disease, or diabetes. CAUSES Weakness can be caused by many different things, including: Infection. Physical exhaustion. Internal bleeding or other blood loss that results in a lack of red blood cells (anemia). Dehydration. This cause is more common in elderly people. Side effects or electrolyte abnormalities from medicines, such as pain medicines or sedatives. Emotional distress, anxiety, or depression. Circulation problems, especially severe peripheral arterial disease. Heart disease, such as rapid atrial fibrillation, bradycardia, or heart failure. Nervous system disorders, such as Guillain-Jolly syndrome, multiple sclerosis, or stroke. DIAGNOSIS To find the cause of your weakness, your caregiver will take your history and perform a physical exam. Lab tests or X-rays may also be ordered, if needed. TREATMENT Treatment of weakness depends on the cause of your symptoms and can vary greatly. HOME CARE INSTRUCTIONS Rest as needed. Eat a well-balanced diet. Try to get some exercise every day. Only take [id number] or prescription medicines as directed by your caregiver. SEEK MEDICAL CARE IF: Your weakness seems to be getting worse or spreads to other parts of your body. You develop new aches or pains. SEEK IMMEDIATE MEDICAL CARE IF: You cannot perform your normal daily activities, such as getting dressed and feeding yourself. You cannot walk up and down stairs, or you feel exhausted when you do so. You have shortness of breath or chest pain. You have difficulty moving parts of your body. You have weakness in only one area of the body or on only one side of the body. You have a fever. You have trouble speaking or swallowing. You cannot control your bladder or bowel movements. You have black or bloody vomit or stools. MAKE SURE YOU: Understand these instructions. Will watch your condition. Will get help right away if you are not doing well or get worse. This information is not intended to replace advice given to you by your health care provider. Make sure you discuss any questions you have with your health care provider. Document Released: 09/24/2006 Document Revised: 03/25/2013 Document Reviewed: [facility] Patient Information 2015 [employer]. No follow up information was provided. Extracted from: Title: Office Visit Note Author: Emeka Wynne MD Date: 02/09/16 Assessment/Plan Fatigue, Other fatigue Will get a UA and see if a culture grows anything. Ordered: Office Visit Level 3 Est 88642 History of dysuria, History of dysuria Ordered: Office Visit Level 3 Est 03311
--- OUTSIDE RECORDS SUMMARY | 2017-02-05 11:16 | XMS REPORT | Referral Summary ---
Author Author [facility] Organization [facility] Address Unknown Phone Unavailable Care Team Providers Care Account Assistant Name Role Phone Oskar Wynne Primary Care Physician [phone] Encounter VC Date(s): 06/02/16 - 06/02/16 [facility] [address] [place], [place] [address] Discharge Disposition: 01-Home or Self Care Attending Physician: Tony Jimenez MD Vital Signs No data available for this section Problem List Condition Effective Dates Status Health [...] Daily, # 3 Each, 1 Refill(s), Pharmacy: [facility] Start Date: 10/06/15 Status: Ordered albuterol CFC free 90 mcg/inh inhalation aerosol 1 puffs, Inhalation, q4hr, as needed for wheezing, # 18 g, 0 Refill(s) Start Date: 06/01/14 Status: Ordered allopurinol 300 mg oral tablet 300 mg 1 tabs, Oral, Daily, [facility] , # 90 tabs, 1 Refill(s), Pharmacy: [facility], 1 tabs Oral Daily,[facility] Start Date: 05/02/16 Status: Ordered Bactrim DS 800 mg-160 mg oral tablet 1 tabs, Oral, Daily, # 90 tabs, 1 Refill(s), Pharmacy: [facility] Start Date: 05/02/16 Status: Ordered citalopram 40 mg oral tablet See Instructions, TAKE 1 TABLET EVERY DAY, # 90 tabs, 1 Refill(s), eRx: [facility], TAKE 1 TABLET EVERY DAY Start Date: 04/17/16 Status: Ordered lisinopril-hydrochlorothiazide 20 mg-25 mg oral tablet 1 tabs, Oral, Daily, Fax to [phone], # 90 tabs, 1 Refill(s), Pharmacy: [facility] Start Date: 05/02/16 Status: Ordered Nasacort AQ 1 sprays, Nasal, Daily, 0 Refill(s) Start Date: 06/18/15 Status: Ordered omeprazole 20 mg oral delayed release capsule 20 mg 1 caps, Oral, Daily, 0 Refill(s) Start Date: 05/16/16 Status: Ordered Singulair 10 mg oral tablet 10 mg 1 tabs, Oral, qPM, # 90 tabs, 1 Refill(s), Pharmacy: [facility], 1 tabs Oral qPM [...]
--- OUTSIDE RECORDS SUMMARY | 2017-02-05 11:16 | XMS REPORT | Referral Summary ---
Author Organization Unknown Address Unknown Phone Unavailable Care Team Providers Care Carburetor Rebuilder Name Role Phone Oskar Wynne Primary Care Physician [phone] Encounter VC Date(s): 12/28/14 - 12/28/14 [facility], [place], Family [address] [place], [place] [address] Discharge Diagnosis: Benign essential hypertension Discharge Diagnosis: COPD exacerbation Discharge Diagnosis: Asthma Discharge Disposition: Home or Self Care Attending Physician: Emeka Wynne MD Admitting Physician: Emeka Wynne MD Vital Signs Most recent to 1 oldest [Reference Range]: Temperature Tympanic 37.0 degC [36.6-38.1 degC] (12/28/14 3:02 PM) Blood Pressure 130/74 mmHg [90-140/60-90 mmHg] (12/28/14 3:02 PM) Problem List Condition Effective Dates Status Health Status Informant Acute Active bronchitis(Confirmed ) COPD Active exacerbation(Confirm ed) Acute Active anxiety(Confirmed) Asthma(Confirmed) Active Benign essential Active hypertension(Confirm ed) Bladder Active problem(Confirmed) Bladder Active stones(Confirmed) Bronchitis(Confirmed Active ) Chicken Active pox(Confirmed) Depression(Confirmed Active ) Depression(Confirmed Active ) Atypical Active nevi(Confirmed) Fatty Active liver(Confirmed) Gout(Confirmed) Active Hepatitis(Confirmed) Active Hypercalcemia(Confir Active med) Hypertension(Confirm Active ed) Jaundice(Confirmed) Active Kidney Active disease(Confirmed) Kidney Active stones(Confirmed) Methicillin Active resistant Staphylococcus aureus(Confirmed)1 Overweight(Confirmed Active ) Prostatism(Confirmed Active ) Renal Active insufficiency(Confir med) RLS (restless legs Active syndrome)(Confirmed) Seizures(Confirmed)2 1971 Active Sinus Active infections(Confirmed ) 1Abscess from Back collected 08/07/14 14:34:00 CDT 2none since 1971 Allergies, Adverse Reactions, Alerts No Known Medication Allergies Medications Advair Diskus 250 mcg-50 mcg inhalation powder 1 puffs, Inhalation, BID, # 180 Each, 0 Refill(s) Start Date: 04/13/14 Status: Ordered albuterol CFC free 90 mcg/inh inhalation aerosol 1 puffs, Inhalation, q4hr, as needed for wheezing, # 18 g, 0 Refill(s) Start Date: 06/01/14 Status: Ordered Aleve 440 mg, Oral, Daily, as needed for pain, 0 Refill(s) Start Date: 06/01/14 Status: Ordered allopurinol 300 mg oral tablet 1 tabs, Oral, Daily, Fax to [facility] , # 90 tabs, 2 Refill(s) Special Instructions: Fax to [facility] Start Date: 04/15/14 Status: Ordered CeleXA 40 mg oral tablet 1 tabs, Oral, Daily, fax to [facility] , # 90 tabs, 2 Refill(s) Special Instructions: fax to [facility] Start Date: 04/15/14 Status: Ordered lisinopril-hydrochlorothiazide 20 mg-25 mg oral tablet 1 tabs, Oral, Daily, Fax to [phone], # 90 tabs, 2 Refill(s) Special Instructions: Fax to [phone] Start Date: 04/15/14 Status: Ordered Singulair 10 mg oral tablet 1 tabs, Oral, qPM, # 30 tabs, 2 Refill(s), Pharmacy: [facility] #[id number], 1 tabs Oral qPM Start Date: 12/03/14 Status: Ordered Zantac 150 oral tablet 1 [...] Cigarettes Assessment and Plan Extracted from: Title: Ambulatory Patient Education Author: Emeka Wynne MD Date: Family Medicine Asthma Prevention Cigarette smoke, house dust, molds, pollens, animal dander, certain insects, exercise, and even cold air are all triggers that can cause an asthma attack. Often, no specific triggers are identified. Take the following measures around your house to reduce attacks: Avoid cigarette and other smoke. No smoking should be allowed in a home where someone with asthma lives. If smoking is allowed indoors, it should be done in a room with a closed door, and a window should be opened to clear the air. If possible, do not use a wood-burning stove, kerosene heater, or fireplace. Minimize exposure to all sources of smoke, including incense, candles , fires, and fireworks. Decrease pollen exposure. Keep your windows shut and use central air during the pollen allergy season. Stay indoors with windows closed from late morning to afternoon, if you can. Avoid mowing the lawn if you have grass pollen allergy. Change your clothes and shower after being outside during this time of year. Remove molds from bathrooms and wet areas. Do this by cleaning the floors with a fungicide or diluted bleach. Avoid using humidifiers, vaporizers, or swamp coolers. These can spread molds through the air. Fix leaky faucets, pipes , or other sources of water that have mold around them. Decrease house dust exposure. Do this by using bare floors, vacuuming frequently, and changing furnace and air cooler filters frequently. Avoid using feather, wool, or foam bedding. Use polyester pillows and plastic covers over your mattress. Wash bedding weekly in hot water (hotter than 130 F). Try to get someone else to vacuum for you once or twice a week, if you can. Stay out of rooms while they are being vacuumed and for a short while afterward. If you vacuum, use a dust mask (from a hardware store), a double- layered or microfilter vacuum acid cleaner bag, or a vacuum acid cleaner with a HEPA filter. Avoid perfumes, talcum powder, hair spray, paints and other strong odors and fumes. Keep warm-blooded pets (cats, dogs, rodents, birds) outside the home if they are triggers for asthma. If you can't keep the pet outdoors, keep the pet out of your bedroom and other sleeping areas at all times, and keep the door closed. Remove carpets and furniture covered with cloth from your home. If that is not possible, keep the pet away from fabric-covered furniture and carpets. Eliminate cockroaches. Keep food and garbage in closed containers. Never leave food out. Use poison baits, traps, powders, gels, or paste (for example, boric acid). If a spray is used to kill cockroaches, stay out of the room until the odor goes away. Decrease indoor humidity to less than 60%. Use an indoor air cleaning device. Avoid sulfites in foods and beverages. Do not drink beer or wine or eat dried fruit, processed potatoes, or shrimp if they cause asthma symptoms. Avoid cold air. Cover your nose and mouth with a scarf on cold or windy days. Avoid aspirin. This is the most common drug causing serious asthma attacks. If exercise triggers your asthma, ask your caregiver how you should prepare before exercising. (For example, ask if you could use your inhaler 10 minutes before exercising.) Avoid close contact with people who have a cold or the flu since your asthma symptoms may get worse if you catch the infection from them. Wash your hands thoroughly after touching items that may have been handled by others with a respiratory infection. Get a flu shot every year to protect against the flu virus, which often makes asthma worse for days to weeks. Also get a pneumonia shot once every five to 10 years. Call your caregiver if you want further information about measures you can take to help prevent asthma attacks. Document Released: 09/24/2006 Document Revised: 12/16/2012 Document Reviewed: [employer] Patient Information 2014 [facility]. No follow up information was provided. Extracted from: Title: Office Visit Note Author: Emeka Wynne MD Date: 12/28/14 Assessment/Plan Asthma Continue with the current medications. Follow up in 3-6 months. Ordered: Office Visit Level 3 Est 66208 Benign essential hypertension Ordered: Office Visit Level 3 Est 92887 COPD exacerbation Ordered: Office Visit Level 3 Est 50086
--- OUTSIDE RECORDS SUMMARY | 2017-02-05 11:17 | XMS REPORT | Referral Summary ---
Author Author [facility], [facility] Organization [facility] Address Unknown Phone Unavailable Care Team Providers Care Vacation Guide Name Role Phone Oskar Wynne Primary Care Physician [phone] Encounter Date(s): 01/31/16 - 01/31/16 [facility] [address] [place] [address] Discharge Diagnosis: UTI (urinary tract infection) Discharge Disposition: 01-Home or Self Care Attending Physician: Hazel Tapia PA-C Vital Signs Most recent to 1 oldest [Reference Range]: Temperature Tympanic 36.4 degC [36.6-38.1 degC] *LOW* (01/31/16 10:52 AM) Apical Heart Rate 64 bpm [60-100 bpm] (01/31/16 10:52 AM) Blood Pressure 126/64 mmHg [90-140/60-90 mmHg] (01/31/16 10:52 AM) Problem List Condition Effective Dates Status [...] Active pain(Confirmed) Methicillin Active resistant Staphylococcus aureus(Confirmed)1, 2 Asthma(Confirmed) Active Overweight(Confirmed Active ) Prostatism(Confirmed Active ) Renal Active insufficiency(Confir med) RLS (restless legs Active syndrome)(Confirmed) Seizures(Confirmed)3 1971 Active Sinus Active infections(Confirmed ) 1Urine from NOT FOUND collected 06/02/15 14:30:00 CDT 2Abscess from Back collected 08/07/14 14:34:00 CDT 3none since 1971 Allergies, Adverse Reactions, Alerts No Known Medication Allergies Medications Advair Diskus 250 mcg-50 mcg inhalation powder 1 puffs, Inhalation, Daily, # 3 Each, 1 Refill(s), Pharmacy: [facility] Start Date: 10/06/15 Status: Ordered albuterol CFC free 90 mcg/inh inhalation aerosol 1 puffs, Inhalation, q4hr, as needed for wheezing, # 18 g, 0 Refill(s) Start Date: 06/01/14 Status: Ordered allopurinol 300 mg oral tablet 300 mg 1 tabs, Oral, Daily, Fax to [employer] , # 90 tabs, 1 Refill(s), Pharmacy: [facility], 1 tabs Oral Daily,Instr:Fax to [employer] Start Date: 10/06/15 Status: Ordered Bactrim DS 800 mg-160 mg oral tablet 1 tabs, Oral, BID, X 7 days, # 14 tabs, 0 Refill(s), Pharmacy: [facility] #[id number] Start Date: 01/31/16 Stop Date: 02/07/16 Status: Ordered CeleXA 40 mg oral tablet 40 mg 1 tabs, Oral, Daily, fax to [employer] , # 90 tabs, 1 Refill(s), Pharmacy: [facility], 1 tabs Oral Daily,Instr:fax to [employer] Start Date: 10/06/15 Status: Ordered lisinopril-hydrochlorothiazide 20 mg-25 mg oral tablet 1 tabs, Oral, Daily, Fax to [phone], # 90 tabs, 1 Refill(s), Pharmacy: [facility] Start Date: 10/06/15 Status: Ordered meloxicam 7.5 mg oral tablet 7.5 mg 1 tabs, Oral, BID, # 40 tabs, 0 Refill(s), Pharmacy: [facility] # [id number], 1 tabs Oral BID,x20 days Start Date: 10/05/15 Stop Date: 10/25/15 Status: Ordered Nasacort AQ 1 sprays, Nasal, Daily, 0 Refill(s) Start Date: 06/18/15 Status: Ordered Singulair 10 mg oral tablet 10 mg 1 tabs, Oral, qPM, # 90 tabs, 1 Refill(s), Pharmacy: [facility], 1 tabs Oral qPM Start Date: 10/06/15 Status: Ordered Vitamin B12 0 Refill(s) Start Date: 10/05/15 Status: Ordered Zantac 150 oral tablet 1 tabs, Oral, Bedtime (once a day), # 30 tabs, 0 Refill(s) Start Date: 04/13/14 Status: Ordered Results Urinalysis Most recent to 1 oldest [Reference Range]: UA Color Yellow (01/31/16 10:48 AM) UA Appear Sl Cloudy (01/31/16 10:48 AM) UA pH [5.0-8.0] 5.5 (01/31/16 10:48 AM) UA Leuk Est Pos 2+ [Negative] *ABN* (01/31/16 10:48 AM) UA Nitrite Negative [Negative] (01/31/16 10:48 AM) UA Protein Negative [Negative] (01/31/16 10:48 AM) UA Glucose Negative [Negative] (01/31/16 10:48 AM) UA Ketones Negative [Negative] (01/31/16 10:48 AM) UA Urobilinogen 0.2 mg/dL [<=1.0 mg/dL] (01/31/16 10:48 AM) UA Bili [Negative] Negative (01/31/16 10:48 AM) UA Blood [Negative] Pos 1+ *ABN* (01/31/16 10:48 AM) UA Spec Grav 1.015 [1.003-1.030] (01/31/16 10:48 AM) Type Voided (01/31/16 10:48 AM) UA WBC [0-4] 10-20 *ABN* (01/31/16 10:48 AM) UA RBC [0-2] 2-5 (01/31/16 10:48 AM) Epithelial Cells 0-2 (01/31/16 10:48 AM) UA Bacteria Occasional *ABN* (01/31/16 10:48 AM) Immunizations Vaccine Date Refusal Reason tetanus/diphth/pertuss [...] Extracted from: Title: Ambulatory Patient Education Author: Hazel Tapia PA-C Date : 01/31/16 Family Medicine Urinary Tract Infection Urinary tract infections (UTIs) can develop anywhere along your urinary tract. Your urinary tract is your body's drainage system for removing wastes and extra water. Your urinary tract includes two kidneys, two ureters, a bladder, and a urethra. Your kidneys are a pair of munguia-shaped organs. Each kidney is about the size of your fist. They are located below your ribs, one on each side of your spine. CAUSES Infections are caused by microbes, which are microscopic organisms, including fungi, viruses, and bacteria. These organisms are so small that they can only be seen through a microscope. Bacteria are the microbes that most commonly cause UTIs. SYMPTOMS Symptoms of UTIs may vary by age and gender of the patient and by the location of the infection. Symptoms in young women typically include a frequent and intense urge to urinate and a painful, burning feeling in the bladder or urethra during urination. Older women and men are more likely to be tired, shaky , and weak and have muscle aches and abdominal pain. A fever may mean the infection is in your kidneys. Other symptoms of a kidney infection include pain in your back or sides below the ribs, nausea, and vomiting. DIAGNOSIS To diagnose a UTI, your caregiver will ask you about your symptoms. Your caregiver also will ask to provide a urine sample. The urine sample will be tested for bacteria and white blood cells. White blood cells are made by your body to help fight infection. TREATMENT Typically, UTIs can be treated with medication. Because most UTIs are caused by a bacterial infection, they usually can be treated with the use of antibiotics. The choice of antibiotic and length of treatment depend on your symptoms and the type of bacteria causing your infection. HOME CARE INSTRUCTIONS If you were prescribed antibiotics, take them exactly as your caregiver instructs you. Finish the medication even if you feel better after you have only taken some of the medication. Drink enough water and fluids to keep your urine clear or pale yellow. Avoid caffeine, tea, and carbonated beverages. They tend to irritate your bladder. Empty your bladder often. Avoid holding urine for long periods of time. Empty your bladder before and after sexual intercourse. After a bowel movement, women should cleanse from front to back. Use each tissue only once. SEEK MEDICAL CARE IF: You have back pain. You develop a fever. Your symptoms do not begin to resolve within 3 days. SEEK IMMEDIATE MEDICAL CARE IF: You have severe back pain or lower abdominal pain. You develop chills. You have nausea or vomiting. You have continued burning or discomfort with urination. MAKE SURE YOU: Understand these instructions. Will watch your condition. Will get help right away if you are not doing well or get worse. This information is not intended to replace advice given to you by your health care provider. Make sure you discuss any questions you have with your health care provider. Document Released: 07/04/2006 Document Revised: 07/13/2015 Document Reviewed: ExitCare Patient Information 2015 [employer]. MRSA Infection MRSA stands for methicillin-resistant Staphylococcus aureus. This type of infection is caused by Staphylococcus aureus bacteria that are no longer affected by the medicines used to kill them (drug resistant). Staphylococcus ( staph) bacteria are normally found on the skin or in the nose of healthy people. In most cases, these bacteria do not cause infection. But if these resistant bacteria enter your body through a cut or sore, they can cause a serious infection on your skin or in other parts of your body. There is a slight chance that the staph on your skin or in your nose is MRSA. There are two types of MRSA infections: Hospital-acquired MRSA is bacteria that you get in the hospital. Community-acquired MRSA is bacteria that you get somewhere other than in a hospital. RISK FACTORS Hospital-acquired MRSA is more common. You could be at risk for this infection if you are in the hospital and you: Have surgery or a procedure. Have an IV access or a catheter tube placed in your body. Have weak resistance to germs (weakened immune system). Are elderly. Are on kidney dialysis. You could be at risk for community-acquired MRSA if you have a break in your skin and come into contact with MRSA. This may happen if you: Play sports where there is hphq-[id number] contact. Live in a crowded setting, like a dormitory or a [employer]. Share towels, razors, or sports equipment with other people. SYMPTOMS Symptoms of hospital-acquired MRSA depend on where MRSA has spread. Symptoms may include: Wound infection. Skin infection. Rash. Pneumonia. Fever and chills. Difficulty breathing. Chest pain. Community-acquired MRSA is most likely to start as a scratch or cut that becomes infected. Symptoms may include: A pus-filled pimple. A boil on your skin. Pus draining from your skin. A sore (abscess) under your skin or somewhere in your body. Fever with or without chills. DIAGNOSIS The diagnosis of MRSA is made by taking a sample from an infected area and sending it to a lab for testing. A blender laborer can grow (culture) MRSA and check it under a microscope. The cultured MRSA can be tested to see which type of antibiotic medicine will work to treat it. Newer tests can identify MRSA more quickly by testing bacteria samples for MRSA genes. Your health care provider can diagnose MRSA using samples from: Cuts or wounds in infected areas. Nasal swabs. Saliva or cough specimens from deep in the lungs (sputum). Urine. Blood. You may also have: Imaging studies (such as X-ray or MRI) to check if the infection has spread to the lungs, bones, or joints. A culture and sensitivity test of blood or fluids from inside the joints. TREATMENT Treatment depends on how severe, deep, or extensive the infection is. Very bad infections may require a hospital stay. Some skin infections, such as a small boil or sore (abscess), may be treated by draining pus from the site of the infection. More extensive surgery to drain pus may be necessary for deeper or more widespread soft tissue infections. You may then have to take antibiotic medicine given by mouth or through a vein. You may start antibiotic treatment right away or after testing can be done to see what antibiotic medicine should be used. HOME CARE INSTRUCTIONS Take your antibiotics as directed by your health care provider. Take the medicine as prescribed until it is finished. Avoid close contact with those around you as much as possible. Do not use towels, razors, toothbrushes, bedding, or other items that will be used by others. Wash your hands frequently for 15 seconds with soap and water. Dry your hands with a clean or disposable towel. When you are not able to wash your hands, use hand mottler operator that is more than 60 percent alcohol. Wash towels, sheets, or clothes in the washing machine with detergent and hot water. Dry them in a hot dryer. Follow your health care provider's instructions for wound care. Wash your hands before and after changing your bandages. Always shower after exercising. Keep all cuts and scrapes clean and covered with a bandage. Be sure to tell all your health care providers that you have MRSA so they are aware of your infection. SEEK MEDICAL CARE IF: You have a cut, scrape, pimple, or boil that becomes red, swollen, or painful or has pus in it. You have pus draining from your skin. You have an abscess under your skin or somewhere in your body. SEEK IMMEDIATE MEDICAL CARE IF: You have symptoms of a skin infection with a fever or chills. You have trouble breathing. You have chest pain. You have a skin wound and you become nauseous or start vomiting. MAKE SURE YOU: Understand these instructions. Will watch your condition. Will get help right away if you are not doing well or get worse. This information is not intended to replace advice given to you by your health care provider. Make sure you discuss any questions you have with your health care provider. Document Released: 09/24/2006 Document Revised: 09/29/2014 Document Reviewed: ExitCare Patient Information 2015 [employer]. No follow up information was provided. Extracted from: Title: Office Visit Note- UTI Author: Hazel Tapia PA-C Date: 01/30 Assessment/Plan UTI (urinary tract infection) Pt has h/o MRSA UTI. Will treat with Bactrim at this time. Pt advised to push fluids. RTC if emotional state not improving with the treatment of the UTI. Pt and voice understanding. Ordered: Office Visit Level 3 Est 15060 UTI symptoms See above. Ordered: Office Visit Level 3 Est 18821 Orders: sulfamethoxazole-trimethoprim, 1 tabs, Oral, BID, X 7 days, # 14 tabs , 0 Refill(s), Pharmacy: [facility] #[id number]
--- OUTSIDE RECORDS SUMMARY | 2017-02-05 11:17 | XMS REPORT | Referral Summary ---
Author Organization Unknown Address Unknown Phone Unavailable Care Team Providers Care Auto Electrical Technician Name Role Phone Oskar Wynne Primary Care Physician [phone] Encounter VC Date(s): 10/27/14 - 10/27/14 [facility] [address] [place], [place] [address] Discharge Diagnosis: History of kidney stones Discharge Disposition: Home or Self Care Attending Physician: Jacques Harrison MD Admitting Physician: Jacques Harrison MD Vital Signs No data available for [...] tablet 1 tabs, Oral, Daily, Fax to [employer] , # 90 tabs, 2 Refill(s) Special Instructions: Fax to [employer] Start Date: 04/15/14 Status: Ordered CeleXA 40 mg oral tablet 1 tabs, Oral, Daily, fax to [employer] , # 90 tabs, 2 Refill(s) Special Instructions: fax to [employer] Start Date: 04/15/14 Status: Ordered lisinopril-hydrochlorothiazide 20 mg-25 mg oral tablet 1 tabs, Oral, Daily, Fax to [phone], # 90 tabs, 2 Refill(s) Special Instructions: Fax to [phone] Start Date: 04/15/14 Status: Ordered Zantac 150 oral tablet 1 [...]
--- OUTSIDE RECORDS SUMMARY | 2017-02-05 11:17 | XMS REPORT | Referral Summary ---
Author Author [facility] Organization [facility] Address Unknown Phone Unavailable Care Team Providers Care Cleaner Industrial Name Role Phone Oskar Wynne Primary Care Physician [phone] Encounter Date(s): 12/23/15 - 12/23/15 [facility] [address] [place] [id number] Discharge Diagnosis: Chronic pain of left lower extremity Discharge Diagnosis: Personal history of poliomyelitis Discharge Disposition: 01-Home or Self Care Attending Physician: Hazel Tapia PA-C Admitting Physician: Hazel Tapia PA-C Vital Signs Most recent to 1 oldest [Reference Range]: Peripheral Pulse 68 bpm Rate [60-100 bpm] (12/23/15 1:32 PM) Respiratory Rate 18 br/min [14-20 br/min] (12/23/15 1:32 PM) Blood Pressure 116/52 mmHg [90-140/60-90 mmHg] (12/23/15 1:32 PM) Problem List Condition Effective Dates Status [...] Daily, # 3 Each, 1 Refill(s), Pharmacy: [facility] Start Date: 10/06/15 Status: Ordered albuterol CFC free 90 mcg/inh inhalation aerosol 1 puffs, Inhalation, q4hr, as needed for wheezing, # 18 g, 0 Refill(s) Start Date: 06/01/14 Status: Ordered allopurinol 300 mg oral tablet 300 mg 1 tabs, Oral, Daily, Fax to [facility] , # 90 tabs, 1 Refill(s), Pharmacy: [facility], 1 tabs Oral Daily,Instr:Fax to [address] Start Date: 10/06/15 Status: Ordered CeleXA 40 mg oral tablet 40 mg 1 tabs, Oral, Daily, fax to [address] , # 90 tabs, 1 Refill(s), Pharmacy: [facility], 1 tabs Oral Daily,Instr:fax to [address] Start Date: 10/06/15 Status: Ordered lisinopril-hydrochlorothiazide 20 mg-25 mg oral tablet 1 tabs, Oral, Daily, Fax to [phone], # 90 tabs, 1 Refill(s), Pharmacy: [facility] Start Date: 10/06/15 Status: Ordered meloxicam 7.5 mg oral tablet 7.5 mg 1 tabs, Oral, BID, # 40 tabs, 0 Refill(s), Pharmacy: [facility] # [id number], 1 tabs Oral BID,x20 days Start Date: [...] Education Author: Hazel Tapia PA-C Date : 12/23/15 Family Medicine Musculoskeletal Pain Musculoskeletal pain is muscle and star aches and pains. These pains can occur in any part of the body. Your caregiver may treat you without knowing the cause of the pain. They may treat you if blood or urine tests, X-rays, and other tests were normal. CAUSES There is often not a definite cause or reason for these pains. These pains may be caused by a type of germ (virus). The discomfort may also come from overuse. Overuse includes working out too hard when your body is not fit. Star aches also come from weather changes. Bone is sensitive to atmospheric pressure changes. HOME CARE INSTRUCTIONS Ask when your test results will be ready. Make sure you get your test results. Only take swex-xys-filxsvt or prescription medicines for pain, discomfort , or fever as directed by your caregiver. If you were given medications for your condition, do not drive, operate machinery or power tools, or sign legal documents for 24 hours. Do not drink alcohol. Do not take sleeping pills or other medications that may interfere with treatment. Continue all activities unless the activities cause more pain. When the pain lessens, slowly resume normal activities. Gradually increase the intensity and duration of the activities or exercise. During periods of severe pain, bed rest may be helpful. Lay or sit in any position that is comfortable. Putting ice on the injured area. Put ice in a bag. Place a towel between your skin and the bag. Leave the ice on for 15 to 20 minutes, 3 to 4 times a day. Follow up with your caregiver for continued problems and no reason can be found for the pain. If the pain becomes worse or does not go away, it may be necessary to repeat tests or do additional testing. Your caregiver may need to look further for a possible cause. SEEK IMMEDIATE MEDICAL CARE IF: You have pain that is getting worse and is not relieved by medications. You develop chest pain that is associated with shortness or breath, sweating, feeling sick to your stomach (nauseous), or throw up (vomit). Your pain becomes localized to the abdomen. You develop any new symptoms that seem different or that concern you. MAKE SURE YOU: Understand these instructions. Will watch your condition. Will get help right away if you are not doing well or get worse. This information is not intended to replace advice given to you by your health care provider. Make sure you discuss any questions you have with your health care provider. Document Released: 09/24/2006 Document Revised: 12/16/2012 Document Reviewed: ExitCare Patient Information 2015 [employer]. No follow up information was provided. Extracted from: Title: Office Visit Note- L leg Author: Hazel Tapia PA-C Date: pain Assessment/Plan Chronic pain of left lower extremity D/w pt that it should be okay to continue on Mobic for now. If he wants to take prn, he may. He may also take plain Tylenol. He does not want to take anything that may make him drowsy due to his job. He is to make sure to take with food, maintain routine eye appts, and have Cr checked at least yearly. He may also continue with chiropractor if he would like. He is to make another appt if pain not controlled. Ordered: Office Visit Level 3 Est 94850 Personal history of poliomyelitis See above. Ordered: Office Visit Level 3 Est 17053
--- OUTSIDE RECORDS SUMMARY | 2017-02-05 11:17 | XMS REPORT | Referral Summary ---
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 Start Date: 10/06/15 Status: Ordered albuterol CFC free 90 mcg/inh inhalation aerosol 1 puffs, Inhalation, q4hr, as needed for wheezing, # 18 g, 0 Refill(s) Start Date: 06/01/14 Status: Ordered allopurinol 300 mg oral tablet 300 mg 1 tabs, Oral, Daily, Fax to [facility] , # 90 tabs, 1 Refill(s), Pharmacy: [facility] Mail Delivery, 1 tabs Oral Daily,Instr:Fax to [facility] Start Date: 05/02/16 Status: Ordered Bactrim DS 800 mg-160 mg oral tablet 1 tabs, Oral, Daily, # 90 tabs, 1 Refill(s), Pharmacy: [facility] Mail [facility] Start Date: 05/02/16 Status: Ordered citalopram 40 mg oral tablet See Instructions, TAKE 1 TABLET EVERY DAY, # 90 tabs, 1 Refill(s), eRx: [facility] Mail Delivery, TAKE 1 TABLET EVERY DAY Start Date: 04/17/16 Status: Ordered lisinopril-hydrochlorothiazide 20 mg-25 mg oral tablet 1 tabs, Oral, Daily, Fax to [phone], # 90 tabs, 1 Refill(s), Pharmacy: [facility] Mail Delivery Start Date: 05/02/16 Status: Ordered meloxicam 7.5 mg oral tablet 7.5 mg 1 tabs, Oral, BID, # 40 tabs, 0 Refill(s), Pharmacy: [facility] # [id number], 1 tabs Oral BID,x20 days Start Date: 10/05/15 Stop Date: 10/25/15 Status: Ordered Nasacort AQ 1 sprays, Nasal, Daily, 0 Refill(s) Start Date: 06/18/15 Status: Ordered Singulair 10 mg oral tablet 10 mg 1 tabs, Oral, qPM, # 90 tabs, 1 Refill(s), Pharmacy: [facility] Mail Delivery, 1 tabs Oral qPM Start Date: 05/02/16 Status: Ordered Vitamin B12 0 Refill(s) Start Date: 10/05/15 Status: Ordered Zantac 150 oral tablet 1 tabs, Oral, Bedtime (once a day), # 30 tabs, 0 Refill(s) Start Date: 04/13/14 Status: Ordered Results Hematology Most recent to 1 oldest [Reference Range]: WBC [4.8-10.8 7.9 10*3/uL 10*3/uL] (05/02/16 2:45 PM) RBC [4.60-6.20] 3.88 *LOW* (05/02/16 2:45 PM) Hgb [14.0-18.0 12.5 gm/dL gm/dL] *LOW* (05/02/16 2:45 PM) Hct [42.0-52.0 %] 36.1 % *LOW* (05/02/16 2:45 PM) MCV [82.0-99.0 fL] 93.0 fL (05/02/16 2:45 PM) MCH [27.0-32.0 pg] 32.2 pg *HI* (05/02/16 2:45 PM) MCHC [32.0-36.0 34.6 gm/dL gm/dL] (05/02/16 2:45 PM) RDW [11.5-14.5 %] 13.9 % (05/02/16 2:45 PM) Platelet [150-400 204 10*3/uL 10*3/uL] (05/02/16 2:45 PM) MPV [8.8-14.8 fL] 9.8 fL (05/02/16 2:45 PM) Immature 0.4 % Granulocytes (05/02/16 2:45 PM) [0.0-1.0 %] Neutrophils [51-75 63 % %] (05/02/16 2:45 PM) Lymphocytes [20-46 22 % %] (05/02/16 2:45 PM) Monocytes [4-11 %] 12 % *HI* (05/02/16 2:45 PM) Eosinophils [0-4 %] 2 % (05/02/16 2:45 PM) Basophils [0-2 %] 1 % (05/02/16 2:45 PM) Neutro Absolute 4.96 10*3 [1.90-7.00 10*3] (05/02/16 2:45 PM) Lymph Absolute 1.76 10*3 [0.80-3.30 10*3] (05/02/16 2:45 PM) [place] Absolute 0.97 10*3 [0.30-1.00 10*3] (05/02/16 2:45 PM) Eos Absolute 0.12 10*3 [0.00-0.50 10*3] (05/02/16 2:45 PM) Baso Absolute 0.04 10*3 [0.00-0.20 10*3] (05/02/16 2:45 PM) Chemistry Most recent to 1 oldest [Reference Range]: Sodium Lvl [135-144 139 mEq/L mEq/L] (05/02/16 2:45 PM) Potassium Lvl 4.0 mEq/L [3.5-5.2 mEq/L] (05/02/16 2:45 PM) Chloride [99-111 106 mEq/L mEq/L] (05/02/16 2:45 PM) CO2 [23-31 mEq/L] 25 mEq/L (05/02/16 2:45 PM) AGAP [3-20] 8 (05/02/16 2:45 PM) BUN [8-26 mg/dL] 28 mg/dL *HI* (05/02/16 2:45 PM) Glucose Lvl [70-99 110 mg/dL mg/dL] *HI* (05/02/16 2:45 PM) Creatinine Lvl 1.29 mg/dL [0.72-1.25 mg/dL] *HI* (05/02/16 2:45 PM) eGFR [>60 mL/min] 54 mL/min 1 *ABN* (05/02/16 2:45 PM) Calcium Lvl 8.8 mg/dL [8.9-10.5 mg/dL] *LOW* (05/02/16 2:45 PM) 1Result Comment: Multiply eGFR results by 1.21 for race. Immunizations Vaccine Date Refusal Reason tetanus/diphth/pertuss (Tdap) [...] Education Author: Hazel Tapia PA-C Date : 05/02/16 ENT Dizziness Dizziness is a common problem. It is a feeling of unsteadiness or light- headedness. You may feel like you are about to faint. Dizziness can lead to injury if you stumble or fall. A person of any age group can suffer from dizziness, but dizziness is more common in older adults. CAUSES Dizziness can be caused by many different things, including: Middle ear problems. Standing for too long. Infections. An allergic reaction. Aging. An emotional response to something, such as the sight of blood. Side effects of medicines. Tiredness. Problems with circulation or blood pressure. Excessive use of alcohol or medicines, or illegal drug use. Breathing too fast (hyperventilation). An irregular heart rhythm (arrhythmia). A low red blood cell count (anemia). . Vomiting, diarrhea, fever, or other illnesses that cause body fluid loss (dehydration). Diseases or conditions such as Parkinson's disease, high blood pressure ( hypertension), diabetes, and thyroid problems. Exposure to extreme heat. DIAGNOSIS Your health care provider will ask about your symptoms, perform a physical exam , and perform an electrocardiogram (ECG) to record the electrical activity of your heart. Your health care provider may also perform other heart or blood tests to determine the cause of your dizziness. These may include: Transthoracic echocardiogram (TTE). During echocardiography, sound waves are used to evaluate how blood flows through your heart. Transesophageal echocardiogram (MELANIE). Cardiac monitoring. This allows your health care provider to monitor your heart rate and rhythm in real time. Holter monitor. This is a portable device that records your heartbeat and can help diagnose heart arrhythmias. It allows your health care provider to track your heart activity for several days if needed. Stress tests by exercise or by giving medicine that makes the heart beat faster. TREATMENT Treatment of dizziness depends on the cause of your symptoms and can vary greatly. HOME CARE INSTRUCTIONS Drink enough fluids to keep your urine clear or pale yellow. This is especially important in very hot weather. In older adults, it is also important in cold weather. Take your medicine exactly as directed if your dizziness is caused by medicines. When taking blood pressure medicines, it is especially important to get up slowly. Rise slowly from chairs and steady yourself until you feel okay. In the morning, first sit up on the side of the bed. When you feel okay, stand slowly while holding onto something until you know your balance is fine. Move your legs often if you need to clin tech one place for a long time. Tighten and relax your muscles in your legs while standing. Have someone stay with you for 12 days if dizziness continues to be a problem. Do this until you feel you are well enough to stay alone. Have the person call your health care provider if he or she notices changes in you that are concerning. Do not drive or use heavy machinery if you feel dizzy. Do not drink alcohol. SEEK IMMEDIATE MEDICAL CARE IF: Your dizziness or light-headedness gets worse. You feel nauseous or vomit. You have problems talking, walking, or using your arms, hands, or legs. You feel weak. You are not thinking clearly or you have trouble forming sentences. It may take a friend or family member to notice this. You have chest pain, abdominal pain, shortness of breath, or sweating. Your vision changes. You notice any bleeding. You have side effects from medicine that seems to be getting worse rather than better. MAKE SURE YOU: Understand these instructions. Will watch your condition. Will get help right away if you are not doing well or get worse. This information is not intended to replace advice given to you by your health care provider. Make sure you discuss any questions you have with your health care provider. Document Released: 03/20/2002 Document Revised: 09/29/2014 Document Reviewed: [facility] Patient Information [address] [facility]. [facility] Medicine Asthma, Adult Asthma is a recurring condition in which the airways tighten and narrow. Asthma can make it difficult to breathe. It can cause coughing, wheezing, and shortness of breath. Asthma episodes, also called asthma attacks, range from minor to life-threatening. Asthma cannot be cured, but medicines and lifestyle changes can help control it. CAUSES Asthma is believed to be caused by inherited (genetic) and environmental factors , but its exact cause is unknown. Asthma may be triggered by allergens, lung infections, or irritants in the air. Asthma triggers are different for each person. Common triggers include: Animal dander. Dust mites. Cockroaches. Pollen from trees or grass. Mold. Smoke. Air pollutants such as dust, household underground mine machinery mechanic, hair sprays, aerosol sprays, paint fumes, strong chemicals, or strong odors. Cold air, weather changes, and winds (which increase molds and pollens in the air). Strong emotional expressions such as crying or laughing hard. Stress. Certain medicines (such as aspirin) or types of drugs (such as beta- blockers). Sulfites in foods and drinks. Foods and drinks that may contain sulfites include dried fruit, potato chips, and sparkling grape juice. Infections or inflammatory conditions such as the flu, a cold, or an inflammation of the nasal membranes (rhinitis). Gastroesophageal reflux disease (GERD). Exercise or strenuous activity. SYMPTOMS Symptoms may occur immediately after asthma is triggered or many hours later. Symptoms include: Wheezing. Excessive nighttime or entry operator coughing. Frequent or severe coughing with a common cold. Chest tightness. Shortness of breath. DIAGNOSIS The diagnosis of asthma is made by a review of your medical history and a physical exam. Tests may also be performed. These may include: Lung function studies. These tests show how much air you breathe in and out. Allergy tests. Imaging tests such as X-rays. TREATMENT Asthma cannot be cured, but it can usually be controlled. Treatment involves identifying and avoiding your asthma triggers. It also involves medicines. There are 2 classes of medicine used for asthma treatment: Controller medicines. These prevent asthma symptoms from occurring. They are usually taken every day. Reliever or rescue medicines. These quickly relieve asthma symptoms. They are used as needed and provide short-term relief. Your health care provider will help you create an asthma action plan. An asthma action plan is a written plan for managing and treating your asthma attacks. It includes a list of your asthma triggers and how they may be avoided. It also includes information on when medicines should be taken and when their dosage should be changed. An action plan may also involve the use of a device called a peak flow meter. A peak flow meter measures how well the lungs are working. It helps you monitor your condition. HOME CARE INSTRUCTIONS Take medicines only as directed by your health care provider. Speak with your health care provider if you have questions about how or when to take the medicines. Use a peak flow meter as directed by your health care provider. Record and keep track of readings. Understand and use the action plan to help minimize or stop an asthma attack without needing to seek medical care. Control your home environment in the following ways to help prevent asthma attacks: Do not smoke. Avoid being exposed to secondhand smoke. Change your heating and air conditioning filter regularly. Limit your use of fireplaces and wood stoves. Get rid of pests (such as roaches and mice) and their droppings. Throw away plants if you see mold on them. Clean your floors and dust regularly. Use unscented cleaning products. Try to have someone else vacuum for you regularly. Stay out of rooms while they are being vacuumed and for a short while afterward. If you vacuum, use a dust mask from a hardware store, a double-layered or microfilter vacuum fur cleaner bag, or a vacuum fur cleaner with a HEPA filter. Replace carpet with wood, tile, or vinyl nayely. Carpet can trap dander and dust. Use allergy-proof pillows, mattress covers, and box spring covers. Wash bed sheets and blankets every week in hot water and dry them in a dryer. Use blankets that are made of polyester or cotton. Clean bathrooms and linda with bleach. If possible, have someone repaint the thao in these rooms with mold-resistant paint. Keep out of the rooms that are being cleaned and painted. Wash hands frequently. SEEK MEDICAL CARE IF: You have wheezing, shortness of breath, or a cough even if taking medicine to prevent attacks. The colored mucus you cough up (sputum) is thicker than usual. Your sputum changes from clear or white to yellow, green, law, or bloody. You have any problems that may be related to the medicines you are taking (such as a rash, itching, swelling, or trouble breathing). You are using a reliever medicine more than 23 times per week. Your peak flow is still at 5079% of your personal best after following your action plan for 1 hour. You have a fever. SEEK IMMEDIATE MEDICAL CARE IF: You seem to be getting worse and are unresponsive to treatment during an asthma attack. You are short of breath even at rest. You get short of breath when doing very little physical activity. You have difficulty eating, drinking, or talking due to asthma symptoms. You develop chest pain. You develop a fast heartbeat. You have a bluish color to your lips or fingernails. You are light-headed, dizzy, or faint. Your peak flow is less than 50% of your personal best. MAKE SURE YOU: Understand these instructions. Will watch your condition. Will get help right away if you are not doing well or get worse. This information is not intended to replace advice given to you by your health care provider. Make sure you discuss any questions you have with your health care provider. Document Released: 09/24/2006 Document Revised: 10/15/2015 Document Reviewed: [facility] Patient Information [address] [facility]. Depression, Adult Depression refers to feeling sad, low, down in the dumps, blue, gloomy, or empty. In general, there are two kinds of depression: 1.Normal sadness or normal grief. This kind of depression is one that we all feel from time to time after upsetting life experiences, such as the loss of a job or the ending of a relationship. This kind of depression is considered normal, is short lived, and resolves within a few days to 2 weeks. Depression experienced after the loss of a loved one (bereavement) often lasts longer than 2 weeks but normally gets better with time. 2.Clinical depression. This kind of depression lasts longer than normal sadness or normal grief or interferes with your ability to function at home, at work, and in school. It also interferes with your personal relationships. It affects almost every aspect of your life. Clinical depression is an illness. Symptoms of depression can also be caused by conditions other than those mentioned above, such as: Physical illness. Some physical illnesses, including underactive thyroid gland (hypothyroidism), severe anemia, specific types of cancer, diabetes, uncontrolled seizures, heart and lung problems, strokes, and chronic pain are commonly associated with symptoms of depression. Side effects of some prescription medicine. In some people, certain types of medicine can cause symptoms of depression. Substance abuse. Abuse of alcohol and illicit drugs can cause symptoms of depression. SYMPTOMS Symptoms of normal sadness and normal grief include the following: Feeling sad or crying for short periods of time. Not caring about anything (apathy). Difficulty sleeping or sleeping too much. No longer able to enjoy the things you used to enjoy. Desire to be by oneself all the time (social isolation). Lack of energy or motivation. Difficulty concentrating or remembering. Change in appetite or weight. Restlessness or agitation. Symptoms of clinical depression include the same symptoms of normal sadness or normal grief and also the following symptoms: Feeling sad or crying all the time. Feelings of guilt or worthlessness. Feelings of hopelessness or helplessness. Thoughts of suicide or the desire to harm yourself (suicidal ideation). Loss of touch with reality (psychotic symptoms). Seeing or hearing things that are not real (hallucinations) or having false beliefs about your life or the people around you (delusions and paranoia). DIAGNOSIS The diagnosis of clinical depression is usually based on how bad the symptoms are and how long they have lasted. Your health care provider will also ask you questions about your medical history and substance use to find out if physical illness, use of prescription medicine, or substance abuse is causing your depression. Your health care provider may also order blood tests. TREATMENT Often, normal sadness and normal grief do not require treatment. However, sometimes antidepressant medicine is given for bereavement to ease the depressive symptoms until they resolve. The treatment for clinical depression depends on how bad the symptoms are but often includes antidepressant medicine, counseling with a mental health professional, or both. Your health care provider will help to determine what treatment is best for you. Depression caused by physical illness usually goes away with appropriate medical treatment of the illness. If prescription medicine is causing depression , talk with your health care provider about stopping the medicine, decreasing the dose, or changing to another medicine. Depression caused by the abuse of alcohol or illicit drugs goes away when you stop using these substances. Some adults need professional help in order to stop drinking or using drugs. SEEK IMMEDIATE MEDICAL CARE IF: You have thoughts about hurting yourself or others. You lose touch with reality (have psychotic symptoms). You are taking medicine for depression and have a serious side effect. FOR MORE INFORMATION National [place] on Mental Illness: www.juanita.org National [place] of Mental Health: www.nimh.nih.gov This information is not intended to replace advice given to you by your health care provider. Make sure you discuss any questions you have with your health care provider. Document Released: 09/21/2001 Document Revised: 10/15/2015 Document Reviewed: [employer] Patient Information 2016 [employer]. Gout Gout is an inflammatory arthritis caused by a buildup of uric acid crystals in the joints. Uric acid is a chemical that is normally present in the blood. When the level of uric acid in the blood is too high it can form crystals that deposit in your joints and tissues. This causes joint redness, soreness, and swelling (inflammation). Repeat attacks are common. Over time, uric acid crystals can form into masses (tophi) near a joint, destroying bone and causing disfigurement. Gout is treatable and often preventable. CAUSES The disease begins with elevated levels of uric acid in the blood. Uric acid is produced by your body when it breaks down a naturally found substance called purines. Certain foods you eat, such as meats and fish, contain high amounts of purines. Causes of an elevated uric acid level include: Being passed down from parent to child (heredity). Diseases that cause increased uric acid production (such as obesity, psoriasis, and certain cancers). Excessive alcohol use. Diet, especially diets rich in meat and seafood. Medicines, including certain cancer-fighting medicines (chemotherapy), water pills (diuretics), and aspirin. Chronic kidney disease. The kidneys are no longer able to remove uric acid well. Problems with metabolism. Conditions strongly associated with gout include: Obesity. High blood pressure. High cholesterol. Diabetes. Not everyone with elevated uric acid levels gets gout. It is not understood why some people get gout and others do not. Surgery, joint injury, and eating too much of certain foods are some of the factors that can lead to gout attacks. SYMPTOMS An attack of gout comes on quickly. It causes intense pain with redness, swelling, and warmth in a joint. Fever can occur. Often, only one joint is involved. Certain joints are more commonly involved: Base of the big toe. Knee. Ankle. Wrist. Finger. Without treatment, an attack usually goes away in a few days to weeks. Between attacks, you usually will not have symptoms, which is different from many other forms of arthritis. DIAGNOSIS Your caregiver will suspect gout based on your symptoms and exam. In some cases , tests may be recommended. The tests may include: Blood tests. Urine tests. X-rays. Joint fluid exam. This exam requires a needle to remove fluid from the joint (arthrocentesis). Using a microscope, gout is confirmed when uric acid crystals are seen in the joint fluid. TREATMENT There are two phases to gout treatment: treating the sudden onset (acute) attack and preventing attacks (prophylaxis). Treatment of an Acute Attack. Medicines are used. These include anti-inflammatory medicines or steroid medicines. An injection of steroid medicine into the affected joint is sometimes necessary. The painful joint is rested. Movement can worsen the arthritis. You may use warm or cold treatments on painful joints, depending which works best for you. Treatment to Prevent Attacks. If you suffer from frequent gout attacks, your caregiver may advise preventive medicine. These medicines are started after the acute attack subsides. These medicines either help your kidneys eliminate uric acid from your body or decrease your uric acid production. You may need to stay on these medicines for a very long time. The early phase of treatment with preventive medicine can be associated with an increase in acute gout attacks. For this reason, during the first few months of treatment, your caregiver may also advise you to take medicines usually used for acute gout treatment. Be sure you understand your caregiver's directions. Your caregiver may make several adjustments to your medicine dose before these medicines are effective. Discuss dietary treatment with your caregiver or dietitian. Alcohol and drinks high in sugar and fructose and foods such as meat, poultry, and seafood can increase uric acid levels. Your caregiver or dietitian can advise you on drinks and foods that should be limited. HOME CARE INSTRUCTIONS Do not take aspirin to relieve pain. This raises uric acid levels. Only take [id number] or prescription medicines for pain, discomfort , or fever as directed by your caregiver. Rest the joint as much as possible. When in bed, keep sheets and blankets off painful areas. Keep the affected joint raised (elevated). Apply warm or cold treatments to painful joints. Use of warm or cold treatments depends on which works best for you. Use crutches if the painful joint is in your leg. Drink enough fluids to keep your urine clear or pale yellow. This helps your body get rid of uric acid. Limit alcohol, sugary drinks, and fructose drinks. Follow your dietary instructions. Pay careful attention to the amount of protein you eat. Your daily diet should emphasize fruits, vegetables, whole grains, and fat-free or low-fat milk products. Discuss the use of coffee, vitamin C, and cherries with your caregiver or dietitian. These may be helpful in lowering uric acid levels. Maintain a healthy body weight. SEEK MEDICAL CARE IF: You develop diarrhea, vomiting, or any side effects from medicines. You do not feel better in 24 hours, or you are getting worse. SEEK IMMEDIATE MEDICAL CARE IF: Your joint becomes suddenly more tender, and you have chills or a fever. MAKE SURE YOU: Understand these instructions. Will watch your condition. Will get help right away if you are not doing well or get worse. This information is not intended to replace advice given to you by your health care provider. Make sure you discuss any questions you have with your health care provider. Document Released: 09/21/2001 Document Revised: 10/15/2015 Document Reviewed: [facility] Patient Information [address] [facility]. Hypertension Hypertension, commonly called high blood pressure, is when the force of blood pumping through your arteries is too strong. Your arteries are the blood vessels that carry blood from your heart throughout your body. A blood pressure reading consists of a higher number over a lower number, such as 110/72. The higher number (systolic) is the pressure inside your arteries when your heart pumps. The lower number (diastolic) is the pressure inside your arteries when your heart relaxes. Ideally you want your blood pressure below 120/80. Hypertension forces your heart to work harder to pump blood. Your arteries may become narrow or stiff. Having hypertension puts you at risk for heart disease, stroke, and other problems. RISK FACTORS Some risk factors for high blood pressure are controllable. Others are not. Risk factors you cannot control include: Race. You may be at higher risk if you are . Age. Risk increases with age. Gender. Men are at higher risk than women before age 45 years. After age 65, women are at higher risk than men. Risk factors you can control include: Not getting enough exercise or physical activity. Being overweight. Getting too much fat, sugar, calories, or salt in your diet. Drinking too much alcohol. SIGNS AND SYMPTOMS Hypertension does not usually cause signs or symptoms. Extremely high blood pressure (hypertensive crisis) may cause headache, anxiety, shortness of breath , and nosebleed. DIAGNOSIS To check if you have hypertension, your health care provider will measure your blood pressure while you are seated, with your arm held at the level of your heart. It should be measured at least twice using the same arm. Certain conditions can cause a difference in blood pressure between your right and left arms. A blood pressure reading that is higher than normal on one occasion does not mean that you need treatment. If it is not clear whether you have high blood pressure, you may be asked to return on a different day to have your blood pressure checked again. Or, you may be asked to monitor your blood pressure at home for 1 or more weeks. TREATMENT Treating high blood pressure includes making lifestyle changes and possibly taking medicine. Living a healthy lifestyle can help lower high blood pressure. You may need to change some of your habits. Lifestyle changes may include: Following the DASH diet. This diet is high in fruits, vegetables, and whole grains. It is low in salt, red meat, and added sugars. Keep your sodium intake below 2,300 mg per day. Getting at least 3045 minutes of aerobic exercise at least 4 times per week. Losing weight if necessary. Not smoking. Limiting alcoholic beverages. Learning ways to reduce stress. Your health care provider may prescribe medicine if lifestyle changes are not enough to get your blood pressure under control, and if one of the following is true: Your systolic blood pressure is above 150. Your diastolic blood pressure is above 90. You have diabetes, and your systolic blood pressure is over 140 or your diastolic blood pressure is over 85. You have heart disease or have had a stroke or heart attack, and your blood pressure is above 130 over 80, which is written as 130/80. HOME CARE INSTRUCTIONS Have your blood pressure rechecked as directed by your health care provider. Take medicines only as directed by your health care provider. Follow the directions carefully. Blood pressure medicines must be taken as prescribed. The medicine does not work as well when you skip doses. Skipping doses also puts you at risk for problems. Do not smoke. Monitor your blood pressure at home as directed by your health care provider. SEEK MEDICAL CARE IF: You think you are having a reaction to medicines taken. You have recurrent headaches or feel dizzy. You have swelling in your ankles. You have trouble with your vision. SEEK IMMEDIATE MEDICAL CARE IF: You develop a severe headache or confusion. You have unusual weakness, numbness, or feel faint. You have severe chest or abdominal pain. You vomit repeatedly. You have trouble breathing. MAKE SURE YOU: Understand these instructions. Will watch your condition. Will get help right away if you are not doing well or get worse. This information is not intended to replace advice given to you by your health care provider. Make sure you discuss any questions you have with your health care provider. Document Released: 09/24/2006 Document Revised: 10/15/2015 Document Reviewed: [facility] Patient Information 2016 [employer]. No follow up information was provided. Extracted from: Title: Office Visit Note- Med ck, Author: Hazel Tapia PA-C Date: 05/02/16 IC f/u Assessment/Plan Asthma Singulair refilled. Also takes Advair and Albuterol. Recheck in 6 months Ordered: Office Visit Level 4 Est 02962 Depression Celexa was already refilled. Continue on this Ordered: Office Visit Level 4 Est 28224 Dizziness This sounds more like orthostatic.Change positions slowly and push fluids. Will checksome labs today. Ordered: Basic Metabolic Panel CBC w/ Differential Office Visit Level 4 Est 70538 Gout Allopurinol was refilled. Recheck 6 months. Hypertension Lab today. Lisinopril/HCTZ was refilled. I did suggest that they get aBP cuff at home to check BP's. IfSBP <100, can hold medication. Ordered: Basic Metabolic Panel Office Visit Level 4 Est 49193 MRSA carrier Bactrim sent to mail order pharmacy. Continue to take this daily. Ordered: Office Visit Level 4 Est 34069 Orders: allopurinol, 300 mg 1 tabs, Oral, Daily, Fax to [facility] , # 90 tabs, 1 Refill(s), Pharmacy: [facility], 1 tabs Oral Daily,Instr:Fax to [facility] lisinopril-hydrochlorothiazide, 1 tabs, Oral, Daily, Fax to [phone], # 90 tabs, 1 Refill(s), Pharmacy: [facility] Delivery montelukast, 10 mg 1 tabs, Oral, qPM, # 90 tabs, 1 Refill(s), Pharmacy: [facility], 1 tabs Oral qPM sulfamethoxazole-trimethoprim, 1 tabs, Oral, Daily, # 90 tabs, 1 Refill(s), Pharmacy: [facility]
--- OUTSIDE RECORDS SUMMARY | 2017-02-05 11:17 | XMS REPORT | Referral Summary ---
Author Author [facility] Organization [facility] Address Unknown Phone Unavailable Care Team Providers Care Security Control Assessor Name Role Phone Oskar Wynne Primary Care Physician [phone] Encounter VC Date(s): 10/28/15 - 10/28/15 [facility] [address] [place], [place] [address] Discharge Diagnosis: Kidney stone Discharge Disposition: 01-Home or Self Care Attending Physician: Ag Carrion MD Vital Signs No data available for [...] # 3 Each, 1 Refill(s), Pharmacy: [facility] Start Date: 10/06/15 Status: Ordered albuterol CFC free 90 mcg/inh inhalation aerosol 1 puffs, Inhalation, q4hr, as needed for wheezing, # 18 g, 0 Refill(s) Start Date: 06/01/14 Status: Ordered allopurinol 300 mg oral tablet 300 mg 1 tabs, Oral, Daily, [facility] , # 90 tabs, 1 Refill(s), Pharmacy: [facility], 1 tabs Oral Daily,Instr[facility] Start Date: 10/06/15 Status: Ordered CeleXA 40 mg oral tablet 40 mg 1 tabs, Oral, Daily, [facility] , # 90 tabs, 1 Refill(s), Pharmacy: [facility], 1 tabs Oral Daily,Instr:[facility] Start Date: 10/06/15 Status: Ordered lisinopril-hydrochlorothiazide 20 mg-25 mg oral tablet 1 tabs, Oral, Daily, Fax to [phone], # 90 tabs, 1 Refill(s), Pharmacy: [facility] Start Date: 10/06/15 Status: Ordered meloxicam 7.5 mg oral tablet 7.5 mg 1 tabs, Oral, BID, # 40 tabs, 0 Refill(s), Pharmacy: [facility] # [id number], 1 tabs Oral BID,x20 days Start Date: 10/05/15 Stop Date: 10/25/15 Status: Ordered Nasacort AQ 1 sprays, Nasal, Daily, 0 Refill(s) Start Date: 06/18/15 Status: Ordered Singulair 10 mg oral tablet 10 mg 1 tabs, Oral, qPM, # 90 tabs, 1 Refill(s), Pharmacy: [facility], 1 tabs [...]
--- OUTSIDE RECORDS SUMMARY | 2017-02-05 11:17 | XMS REPORT | Referral Summary ---
Author Author [facility] Organization [facility] Address Unknown Phone Unavailable Care Team Providers Care Labor Representative Name Role Phone Oskar Wynne Primary Care Physician [phone] Encounter Date(s): 06/08/16 - 06/08/16 [facility] [address] [place], [place] [address] Discharge Disposition: 01-Home or Self Care Attending Physician: Tony Jimenez MD Admitting Physician: Tony Jimenez MD Vital Signs Most recent to 1 oldest [Reference Range]: Peripheral Pulse 64 bpm Rate [60-100 bpm] (06/08/16 1:31 PM) Blood Pressure 128/56 mmHg [90-140/60-90 mmHg] (06/08/16 1:31 PM) Problem List Condition Effective Dates Status [...] insufficiency(Confir med) RLS (restless legs Active syndrome)(Confirmed) Seizures(Confirmed) 1972 Active Sinus Active infections(Confirmed ) 1Urine from NOT FOUND collected 01/31/16 10:48:00 CDT 2Urine from NOT FOUND collected 06/02/15 14:30:00 CDT 3Abscess from Back collected 08/07/14 14:34:00 CDT 4none since 1971 Allergies, Adverse Reactions, Alerts No Known Medication Allergies Medications Advair Diskus 250 mcg-50 mcg inhalation powder 1 puffs, Inhalation, Daily, # 3 Each, 1 Refill(s), Pharmacy: [facility] Start Date: 10/06/15 Status: Ordered albuterol CFC free 90 mcg/inh inhalation aerosol 1 puffs, Inhalation, q4hr, as needed for wheezing, # 18 g, 0 Refill(s) Start Date: 06/01/14 Status: Ordered allopurinol 300 mg oral tablet 300 mg 1 tabs, Oral, Daily, Fax to [facility] , # 90 tabs, 1 Refill(s), Pharmacy: [facility], 1 tabs Oral Daily,Instr:Fax to [facility] Start Date: 05/02/16 Status: Ordered Bactrim DS 800 mg-160 mg oral tablet 1 tabs, Oral, Daily, # 90 tabs, 1 Refill(s), Pharmacy: [facility] Start Date: 05/02/16 Status: Ordered citalopram 40 mg oral tablet See Instructions, TAKE 1 TABLET EVERY DAY, # 90 tabs, 1 Refill(s), eRx: [facility], TAKE 1 TABLET EVERY DAY Start Date: 04/17/16 Status: Ordered lisinopril-hydrochlorothiazide 20 mg-25 mg oral tablet 1 tabs, Oral, Daily, Fax to [phone], # 90 tabs, 1 Refill(s), Pharmacy: [facility] Start Date: 05/02/16 Status: Ordered Nasacort AQ 1 sprays, Nasal, Daily, 0 Refill(s) Start Date: 06/18/15 Status: Ordered omeprazole 20 mg oral delayed release capsule 20 mg 1 caps, Oral, Daily, 0 Refill(s) Start Date: 05/16/16 Status: Ordered Singulair 10 mg oral tablet 10 mg 1 tabs, Oral, qPM, # 90 tabs, 1 Refill(s), Pharmacy: [facility], 1 tabs Oral [...]
--- OUTSIDE RECORDS SUMMARY | 2017-02-05 11:17 | XMS REPORT | Referral Summary ---
Author Author [facility] Organization [facility] Address Unknown Phone Unavailable Care Team Providers Care Base Filler Operator Name Role Phone Oskar Wynne Primary Care Physician [phone] Encounter VC Date(s): 10/28/15 - 10/28/15 [facility] [address] [place], [place] [address] Discharge Diagnosis: History of kidney stones Discharge Disposition: 01-Home or Self Care Attending Physician: Jacques Harrison MD Admitting Physician: Jacques Harrison MD Vital Signs Most recent to 1 oldest [Reference Range]: Peripheral Pulse 80 bpm Rate [60-100 bpm] (10/28/15 2:22 PM) Blood Pressure 120/70 mmHg [90-140/60-90 mmHg] (10/28/15 2:22 PM) Problem List Condition Effective Dates Status [...] med) RLS (restless legs Active syndrome)(Confirmed) Seizures(Confirmed)3 1972 Active Sinus Active infections(Confirmed ) 1Urine from NOT FOUND collected 06/02/15 14:30:00 CDT 2Abscess from Back collected 08/07/14 14:34:00 CDT 3none since 1971 Allergies, Adverse Reactions, Alerts No Known Medication Allergies Medications Advair Diskus 250 mcg-50 mcg inhalation powder 1 puffs, Inhalation, Daily, # 3 Each, 1 Refill(s), Pharmacy: [facility] Start Date: 10/06/15 Status: Ordered albuterol CFC free 90 mcg/inh inhalation aerosol 1 puffs, Inhalation, q4hr, as needed for wheezing, # 18 g, 0 Refill(s) Start Date: 06/01/14 Status: Ordered allopurinol 300 mg oral tablet 300 mg 1 tabs, Oral, Daily, Fax to [employer] , # 90 tabs, 1 Refill(s), Pharmacy: [facility], 1 tabs Oral Daily,Instr:Fax to [employer] Start Date: 10/06/15 Status: Ordered CeleXA 40 mg oral tablet 40 mg 1 tabs, Oral, Daily, fax to [employer] , # 90 tabs, 1 Refill(s), Pharmacy: [facility], 1 tabs Oral Daily,Instr:fax to [employer] Start Date: 10/06/15 Status: Ordered lisinopril-hydrochlorothiazide 20 mg-25 mg oral tablet 1 tabs, Oral, Daily, Fax to [phone], # 90 tabs, 1 Refill(s), Pharmacy: [facility] Start Date: 10/06/15 Status: Ordered meloxicam 7.5 mg oral tablet 7.5 mg 1 tabs, Oral, BID, # 40 tabs, 0 Refill(s), Pharmacy: [facility] # [id number], 1 tabs Oral BID,x20 days Start Date: 10/05/15 Stop Date: 10/25/15 Status: Ordered Nasacort AQ 1 sprays, Nasal, Daily, 0 Refill(s) Start Date: 06/18/15 Status: Ordered Singulair 10 mg oral tablet 10 mg 1 tabs, Oral, qPM, # 90 tabs, 1 Refill(s), Pharmacy: [facility], 1 tabs Oral [...] Cigarettes Assessment and Plan Extracted from: Title: Office Visit Note Author: Jacques Harrison MD Date: 10/28/15 Assessment/Plan 1.History of kidney stones I reviewed with the patientthe dietary modifications and fluid adjustmentsfor stone prevention. He is well aware of the importance ofperiodic follow-up. Round 15 minutes were spent today mostly in discussion.
--- OUTSIDE RECORDS SUMMARY | 2017-02-05 11:17 | XMS REPORT | Referral Summary ---
Author Author [facility], [facility] Organization [facility] Address Unknown Phone Unavailable Care Team Providers Care Recovery Advocate Name Role Phone Oskar Wynne Primary Care Physician [phone] Encounter Date(s): 06/18/15 - 06/18/15 [facility], [address] [place] [id number]- Discharge Diagnosis: HEPATITIS, UNSPECIFIED Discharge Diagnosis: BENIGN ESSENTIAL HYPERTENSION Discharge Diagnosis: At risk of UTI Discharge Disposition: 01-Home or Self Care Attending Physician: Emeka Wynne MD Admitting Physician: Emeka Wynne MD Vital Signs Most recent to 1 oldest [Reference Range]: Blood Pressure 126/54 mmHg [90-140/60-90 mmHg] (06/18/15 3:35 PM) Problem List Condition Effective Dates Status [...] Daily, # 3 Each, 1 Refill(s), Pharmacy: [facility] Start Date: 10/06/15 Status: Ordered albuterol CFC free 90 mcg/inh inhalation aerosol 1 puffs, Inhalation, q4hr, as needed for wheezing, # 18 g, 0 Refill(s) Start Date: 06/01/14 Status: Ordered allopurinol 300 mg oral tablet 300 mg 1 tabs, Oral, Daily, [facility] , # 90 tabs, 1 Refill(s), Pharmacy: [facility], 1 tabs Oral Daily,Instr:Fax to [facility] Start Date: 10/06/15 Status: Ordered CeleXA 40 mg oral tablet 40 mg 1 tabs, Oral, Daily, [facility] , # 90 tabs, 1 Refill(s), Pharmacy: [facility], 1 tabs Oral Daily,Instr:[facility] Start Date: 10/06/15 Status: Ordered lisinopril-hydrochlorothiazide 20 mg-25 mg oral tablet 1 tabs, Oral, Daily, Fax to [phone], # 90 tabs, 1 Refill(s), Pharmacy: [facility] Start Date: 10/06/15 Status: Ordered meloxicam 7.5 mg oral tablet 7.5 mg 1 tabs, Oral, BID, # 40 tabs, 0 Refill(s), Pharmacy: [facility] # [id number], 1 tabs Oral BID,x20 days Start Date: 10/05/15 Stop Date: 10/25/15 Status: Ordered Nasacort AQ 1 sprays, Nasal, Daily, 0 Refill(s) Start Date: 06/18/15 Status: Ordered Singulair 10 mg oral tablet 10 mg 1 tabs, Oral, qPM, # 90 tabs, 1 Refill(s), Pharmacy: [facility], 1 tabs Oral qPM Start Date: 10/06/15 Status: Ordered Vitamin B12 0 Refill(s) Start Date: 10/05/15 Status: Ordered Zantac 150 oral tablet 1 tabs, Oral, Bedtime (once a day), # 30 tabs, 0 Refill(s) Start Date: 04/13/14 Status: Ordered Results Chemistry Most recent to 1 oldest [Reference Range]: Sodium Lvl [135-144 137 mEq/L mEq/L] (06/18/15 4:22 PM) Potassium Lvl 3.9 mEq/L [3.5-5.2 mEq/L] (06/18/15 4:22 PM) Chloride [99-111 106 mEq/L mEq/L] (06/18/15 4:22 PM) CO2 [23-31 mEq/L] 24 mEq/L (06/18/15 4:22 PM) AGAP [3-20] 7 (06/18/15 4:22 PM) BUN [8-26 mg/dL] 25 mg/dL (06/18/15 4:22 PM) Glucose Lvl [70-99 98 mg/dL mg/dL] (06/18/15 4:22 PM) Creatinine Lvl 1.09 mg/dL [0.72-1.25 mg/dL] (06/18/15 4:22 PM) eGFR [>60 mL/min] >60 mL/min 1 (06/18/15 4:22 PM) Calcium Lvl 9.2 mg/dL [8.9-10.5 mg/dL] (06/18/15 4:22 PM) Albumin Lvl [3.4-4.8 3.9 gm/dL gm/dL] (06/18/15 4:22 PM) Total Protein 6.7 gm/dL [6.2-8.1 gm/dL] (06/18/15 4:22 PM) Globulin [1.8-4.0 2.8 gm/dL gm/dL] (06/18/15 4:22 PM) ALT [0-55 U/L] 17 U/L (06/18/15 4:22 PM) AST [5-34 U/L] 14 U/L (06/18/15 4:22 PM) Alk Phos [40-150 86 U/L U/L] (06/18/15 4:22 PM) Bili Total [0.2-1.2 0.3 mg/dL mg/dL] (06/18/15 4:22 PM) Bili Direct [0.0-0.5 0.1 mg/dL mg/dL] (06/18/15 4:22 PM) Bili Indirect 0.2 mg/dL [0.0-1.0 mg/dL] (06/18/15 4:22 PM) 1Result Comment: Multiply eGFR results by [...] Author: Emeka Wynne MD Date: Family Medicine Depression, Adult Depression refers to feeling sad, low, down in the dumps, blue, gloomy, or empty. In general, there are two kinds of depression: 1. Depression that we all experience from time to time because of upsetting life experiences, including the loss of a job or the ending of a relationship ( normal sadness or normal grief). This kind of depression is considered normal, is short lived, and resolves within a few days to 2 weeks. (Depression experienced after the loss of a loved one is called bereavement. Bereavement often lasts longer than 2 weeks but normally gets better with time.) 2. Clinical depression, which lasts longer than normal sadness or normal grief or interferes with your ability to function at home, at work, and in school. It also interferes with your personal relationships. It affects almost every aspect of your life. Clinical depression is an illness. Symptoms of depression also can be caused by conditions other than normal sadness and grief or clinical depression. Examples of these conditions are listed as follows: Physical illnessSome physical illnesses, including underactive thyroid gland (hypothyroidism), severe anemia, specific types of cancer, diabetes, uncontrolled seizures, heart and lung problems, strokes, and chronic pain are commonly associated with symptoms of depression. Side effects of some prescription medicineIn some people, certain types of prescription medicine can cause symptoms of depression. Substance abuseAbuse of alcohol and illicit drugs can cause [...] paranoia). DIAGNOSIS The diagnosis of clinical depression usually is based on the severity and duration of the symptoms. Your caregiver also will ask you questions about your medical history and substance use to find out if physical illness, use of prescription medicine, or substance abuse is causing your depression. Your caregiver also may order blood tests. TREATMENT Typically, normal sadness and normal grief do not require treatment. However, sometimes antidepressant medicine is prescribed for bereavement to ease the depressive symptoms until they resolve. The treatment for clinical depression depends on the severity of your symptoms but typically includes antidepressant medicine, counseling with a mental health professional, or a combination of both. Your caregiver will help to determine what treatment is best for you. Depression caused by physical illness usually goes away with appropriate medical treatment of the illness. If prescription medicine is causing depression , talk with your caregiver about stopping the medicine, decreasing the dose, or substituting another medicine. Depression caused by abuse of alcohol or illicit drugs abuse goes away with abstinence from these substances. Some adults need professional help in order to stop drinking or using drugs. SEEK IMMEDIATE CARE IF: You have thoughts about hurting yourself or others. You lose touch with reality (have psychotic symptoms). You are taking medicine for depression and have a serious side effect. FOR MORE INFORMATION National [employer] [place] on Mental Illness: www.juanita.org National [place] of Mental Health: www.nimh.nih.gov Document Released: 09/21/2001 Document Revised: 03/25/2013 Document Reviewed: ExitCare Patient Information 2015 [employer]. This information is not intended to replace advice given to you by your health care provider. Make sure you discuss any questions you have with your health care provider. Borderline Personality Disorder Borderline personality disorder is a mental health disorder. People with borderline personality disorder have unhealthy patterns of perceiving, thinking about, and reacting to their environment and events in their life. These patterns are established by adolescence or early adulthood. People with borderline personality disorder also have difficulty coping with stress on their own and fear being abandoned by others. They have difficulty controlling their emotions. Their emotions change quickly, frequently, and intensely. They are easily upset and can become very angry, very suddenly. Their unpredictable behavior often leads to problems in their relationships. They often feel worthless, unloved, and emotionally empty. CAUSES No one knows the exact cause of borderline personality disorder. Most mental health experts think that there is more than one cause. Possible contributing factors include: Genetic factors. These are traits that are passed down from one generation to the next. Many people with borderline personality disorder have a family history of the disorder. Physical factors. The part of the brain that controls emotion may be different in people who have borderline personality disorder. Social factors. Traumatic experiences involving other people may play a role in the development of borderline personality disorder. Examples include neglect, abandonment, and physical and sexual abuse. SYMPTOMS Signs and symptoms of borderline personality disorder include: A series of unstable personal relationships. A strong fear of being abandoned and frantic efforts to avoid abandonment. Impulsive, self-destructive behavior, such as substance abuse, irrational spending of money, unprotected sex with multiple partners, reckless driving, and binge eating. Poor self-image that also may change a lot, or a sense of identity that is inconsistent. Recurring self-injury or attempted suicide. Severe mood swings, including depression, irritability, and anxiety. Lasting feelings of emptiness. Difficulty controlling anger. Temporary feelings of paranoia or loss of touch with reality. DIAGNOSIS A diagnosis of borderline personality disorder requires the presence of at least 5 of the common signs and symptoms. This information is gathered from family and friends as well as medical cost consultant and legal professionals who have a close association with the patient. This information is also gathered during a psychiatric assessment. During the assessment, the patient is asked about early life experiences, level of education, employment status, physical health conditions, and current prescription and [id number] medicines used. TREATMENT Caregivers who usually treat borderline personality disorder are mental health professionals, such as psychologists, psychiatrists, and clinical social workers. More than one type of treatment may be needed. Types of treatment include: Psychotherapy (also known as talk therapy or counseling). Cognitive behavioral therapy. This helps the person to recognize and change unhealthy feelings, thoughts, and behaviors. They find new, more positive thoughts and actions to replace the old ones. Dialectical behavioral therapy. Through this type of treatment, a person learns to understand his or her feelings and to regulate them. This may be one- on-one treatment or part of group therapy. Family therapy. This treatment includes family members. Medicine. Medicine may be used to help control emotions, reduce reckless and self-destructive behavior, treat anxiety, and treat depression. SEEK IMMEDIATE MEDICAL CARE IF: You cannot control your behavior or emotions. You think about hurting yourself. You think about suicide. FOR MORE INFORMATION National [employer] [place] on Mental Illness: www.juanita.org [place] of Mental Health: www.nimh.nih.gov Borderline Personality Resource Center: http://bpdresourcecenter.org Document Released: 01/09/2012 Document Revised: 12/16/2012 Document Reviewed: ExitCare Patient Information 2014 [facility]. This information is not intended to replace advice given to you by your health care provider. Make sure you discuss any questions you have with your health care provider. No follow up information was provided. Extracted from: Title: Office Visit Note Author: Emeka Wynne MD Date: 06/18/15 Assessment/Plan At risk of UTI Lab is pending. Ordered: Office Visit Level 3 Est 21581 BENIGN ESSENTIAL HYPERTENSION continue with the current medications. Ordered: Office Visit Level 3 Est 14812 Depression Ordered: Office Visit Level 3 Est 60410 HEPATITIS, UNSPECIFIED Ordered: Office Visit Level 3 Est 18723
--- OUTSIDE RECORDS SUMMARY | 2017-02-05 11:17 | XMS REPORT | Referral Summary ---
Author Author [facility] Medicine Organization [facility] Address Unknown Phone Unavailable Care Team Providers Care Medical Van Driver Name Role Phone Oskar Wynne Primary Care Physician [phone] Encounter VC Date(s): 02/22/15 - 02/22/15 [facility] [address] [place] [id number] Discharge Disposition: 01-Home or Self Care Attending Physician: Emeka Wynne MD Admitting Physician: Emeka Wynne MD Vital Signs Most recent to 1 oldest [Reference Range]: Blood Pressure 116/62 mmHg [90-140/60-90 mmHg] (02/22/15 1:13 PM) Problem List Condition Effective Dates Status [...] inhalation powder 1 puffs, Inhalation, Daily, # 60 Each, 3 Refill(s), Pharmacy: [facility] # [id number] Start Date: 04/16/15 Status: Ordered albuterol CFC free 90 mcg/inh inhalation aerosol 1 puffs, Inhalation, q4hr, as needed for wheezing, # 18 g, 0 Refill(s) Start Date: 06/01/14 Status: Ordered allopurinol 300 mg oral tablet 1 tabs, Oral, Daily, Fax to [facility] , # 90 tabs, 2 Refill(s) Start Date: 01/18/15 Status: Ordered B-Plex (Vitamin B Complex) oral tablet 1 tabs, Oral, Daily, # 100 tabs, 0 Refill(s) Start Date: 06/02/15 Status: Ordered CeleXA 40 mg oral tablet 1 tabs, Oral, Daily, fax to [facility] , # 90 tabs, 2 Refill(s) Start Date: 01/18/15 Status: Ordered lisinopril-hydrochlorothiazide 20 mg-25 mg oral tablet 1 tabs, Oral, Daily, Fax to [id number], # 90 tabs, 2 Refill(s) Start Date: 01/18/15 Status: Ordered Nasacort AQ 1 sprays, Nasal, Daily, 0 Refill(s) Start Date: 06/18/15 Status: Ordered Singulair 10 mg oral tablet 10 mg 1 tabs, Oral, qPM, # 90 tabs, 3 Refill(s), [facility], 1 tabs Oral qPM Start Date: 02/22/15 Status: Ordered Vitamin C 0 Refill(s) Start [...] Author: Emeka Wynne MD Date: Family Medicine Back Exercises Back exercises help treat and prevent back injuries. The goal of back exercises is to increase the strength of your abdominal and back muscles and the flexibility of your back. These exercises should be started when you no longer have back pain. Back exercises include: Pelvic Tilt. Lie on your back with your knees bent. Tilt your pelvis until the lower part of your back is against the floor. Hold this position 5 to 10 sec and repeat 5 to 10 times. Knee to Chest. Pull first 1 knee up against your chest and hold for 20 to 30 seconds, repeat this with the other knee, and then both knees. This may be done with the other leg straight or bent, whichever feels better. Sit-Ups or Curl-Ups. Bend your knees 90 degrees. Start with tilting your pelvis, and do a partial, slow sit-up, lifting your trunk only 30 to 45 degrees off the floor. Take at least 2 to 3 seconds for each sit-up. Do not do sit-ups with your knees out straight. If partial sit-ups are difficult, simply do the above but with only tightening your abdominal muscles and holding it as directed. Hip-Lift. Lie on your back with your knees flexed 90 degrees. Push down with your feet and shoulders as you raise your hips a couple inches off the floor; hold for 10 seconds, repeat 5 to 10 times. Back arches. Lie on your stomach, propping yourself up on bent elbows. Slowly press on your hands, causing an arch in your low back. Repeat 3 to 5 times. Any initial stiffness and discomfort should lessen with repetition over time. Shoulder-Lifts. Lie face down with arms beside your body. Keep hips and torso pressed to floor as you slowly lift your head and shoulders off the floor. Do not overdo your exercises, especially in the beginning. Exercises may cause you some mild back discomfort which lasts for a few minutes; however, if the pain is more severe, or lasts for more than 15 minutes, do not continue exercises until you see your caregiver. Improvement with exercise therapy for back problems is slow. See your caregivers for assistance with developing a proper back exercise program. Document Released: 11/01/2005 Document Revised: 12/16/2012 Document Reviewed: [facility] Patient Information 2014 [facility]. Low Back Sprain with Rehab A sprain is an injury in which a ligament is torn. The ligaments of the lower back are vulnerable to sprains. However, they are strong and require great force to be injured. These ligaments are important for stabilizing the spinal column. Sprains are classified into three categories. Grade 1 sprains cause pain , but the tendon is not lengthened. Grade 2 sprains include a lengthened ligament, due to the ligament being stretched or partially ruptured. With grade 2 sprains there is still function, although the function may be decreased. Grade 3 sprains involve a complete tear of the tendon or muscle, and function is usually impaired. SYMPTOMS Severe pain in the lower back. Sometimes, a feeling of a "pop," "snap," or tear, at the time of injury. Tenderness and sometimes swelling at the injury site. Uncommonly, bruising (contusion ) within 48 hours of injury. Muscle spasms in the back. CAUSES Low back sprains occur when a force is placed on the ligaments that is greater than they can handle. Common causes of injury include: Performing a stressful act while off-balance. Repetitive stressful activities that involve movement of the lower back. Direct hit (trauma ) to the lower back. RISK INCREASES WITH: Contact sports (football, wrestling). Collisions (major skiing accidents). Sports that require throwing or lifting (baseball, weightlifting). Sports involving twisting of the spine (gymnastics, diving, tennis, golf). Poor strength and flexibility. Inadequate protection. Previous back injury or surgery (especially fusion). PREVENTION Wear properly fitted and padded protective equipment. Warm up and stretch properly before activity. Allow for adequate recovery between workouts. Maintain physical fitness: Strength, flexibility, and endurance. Cardiovascular fitness. Maintain a healthy body weight. PROGNOSIS If treated properly, low back sprains usually heal with non-surgical treatment. The length of time for healing depends on the severity of the injury. RELATED COMPLICATIONS Recurring symptoms, resulting in a chronic problem. Chronic inflammation and pain in the low back. Delayed healing or resolution of symptoms, especially if activity is resumed too soon. Prolonged impairment. Unstable or arthritic joints of the low back. TREATMENT Treatment first involves the use of ice and medicine, to reduce pain and inflammation. The use of strengthening and stretching exercises may help reduce pain with activity. These exercises may be performed at home or with a therapist. Severe injuries may require referral to a therapist for further evaluation and treatment, such as ultrasound. Your caregiver may advise that you wear a back brace or corset, to help reduce pain and discomfort. Often, prolonged bed rest results in greater harm then benefit. Corticosteroid injections may be recommended. However, these should be reserved for the most serious cases. It is important to avoid using your back when lifting objects. At night, sleep on your back on a firm mattress, with a pillow placed under your knees. If non-surgical treatment is unsuccessful, surgery may be needed. MEDICATION If pain medicine is needed, nonsteroidal anti-inflammatory medicines ( aspirin and ibuprofen), or other minor pain relievers (acetaminophen), are often advised. Do not take pain medicine for 7 days before surgery. Prescription pain relievers may be given, if your caregiver thinks they are needed. Use only as directed and only as much as you need. Ointments applied to the skin may be helpful. Corticosteroid injections may be given by your caregiver. These injections should be reserved for the most serious cases, because they may only be given a certain number of times. HEAT AND COLD Cold treatment (icing ) should be applied for 10 to 15 minutes every 2 to 3 hours for inflammation and pain, and immediately after activity that aggravates your symptoms. Use ice packs or an ice massage. Heat treatment may be used before performing stretching and strengthening activities prescribed by your caregiver, physical therapist, or hearing dog trainer. Use a heat pack or a warm water soak. SEEK MEDICAL CARE IF: Symptoms get worse or do not improve in 2 to 4 weeks, despite treatment. You develop numbness or weakness in either leg. You lose bowel or bladder function. Any of the following occur after surgery: fever, increased pain, swelling, redness, drainage of fluids, or bleeding in the affected area. New, unexplained symptoms develop. (Drugs used in treatment may produce side effects. ) EXERCISES RANGE OF MOTION (ROM) AND STRETCHING EXERCISES - Low Back Sprain Most people with lower back pain will find that their symptoms get worse with excessive bending forward (flexion ) or arching at the lower back (extension ). The exercises that will help resolve your symptoms will focus on the opposite motion. Your physician, physical therapist or hearing dog trainer will help you determine which exercises will be most helpful to resolve your lower back pain. Do not complete any exercises without first consulting with your caregiver. Discontinue any exercises which make your symptoms worse, until you speak to your caregiver. If you have pain, numbness or tingling which travels down into your buttocks, leg or foot, the goal of the therapy is for these symptoms to move closer to your back and eventually resolve. Sometimes, these leg symptoms will get better , but your lower back pain may worsen. This is often an indication of progress in your rehabilitation. Be very alert to any changes in your symptoms and the activities in which you participated in the 24 hours prior to the change. Sharing this information with your caregiver will allow him or her to most efficiently treat your condition. These exercises may help you when beginning to rehabilitate your injury. Your symptoms may resolve with or without further involvement from your physician, physical therapist or hearing dog trainer. While completing these exercises, remember: Restoring tissue flexibility helps normal motion to return to the joints. This allows healthier, less painful movement and activity. An effective stretch should be held for at least 30 seconds. A stretch should never be painful. You should only feel a gentle lengthening or release in the stretched tissue. FLEXION RANGE OF MOTION AND STRETCHING EXERCISES: STRETCH Flexion, Single Knee to Chest Lie on a firm bed or floor with both legs extended in front of you. Keeping one leg in contact with the floor, bring your opposite knee to your chest. Hold your leg in place by either grabbing behind your thigh or at your knee. Pull until you feel a gentle stretch in your low back. Hold seconds. Slowly release your grasp and repeat the exercise with the opposite side. Repeat times. Complete this exercise times per day. STRETCH Flexion, Double Knee to Chest Lie on a firm bed or floor with both legs extended in front of you. Keeping one leg in contact with the floor, bring your opposite knee to your chest. Tense your stomach muscles to support your back and then lift your other knee to your chest. Hold your legs in place by either grabbing behind your thighs or at your knees. Pull both knees toward your chest until you feel a gentle stretch in your low back. Hold seconds. Tense your stomach muscles and slowly return one leg at a time to the floor. Repeat times. Complete this exercise times per day. STRETCH Low Trunk Rotation Lie on a firm bed or floor. Keeping your legs in front of you, bend your knees so they are both pointed toward the ceiling and your feet are flat on the floor. Extend your arms out to the side. This will stabilize your upper body by keeping your shoulders in contact with the floor. Gently and slowly drop both knees together to one side until you feel a gentle stretch in your low back. Hold for seconds. Tense your stomach muscles to support your lower back as you bring your knees back to the starting position. Repeat the exercise to the other side. Repeat times. Complete this exercise times per day EXTENSION RANGE OF MOTION AND FLEXIBILITY EXERCISES: STRETCH Extension, Prone on Elbows Lie on your stomach on the floor, a bed will be too soft. Place your palms about shoulder width apart and at the height of your head. Place your elbows under your shoulders. If this is too painful, stack pillows under your chest. Allow your body to relax so that your hips drop lower and make contact more completely with the floor. Hold this position for seconds. Slowly return to lying flat on the floor. Repeat times. Complete this exercise times per day. RANGE OF MOTION Extension, Prone Press Ups Lie on your stomach on the floor, a bed will be too soft. Place your palms about shoulder width apart and at the height of your head. Keeping your back as relaxed as possible, slowly straighten your elbows while keeping your hips on the floor. You may adjust the placement of your hands to maximize your comfort. As you gain motion, your hands will come more underneath your shoulders. Hold this position seconds. Slowly return to lying flat on the floor. Repeat times. Complete this exercise times per day. RANGE OF MOTION- Quadruped, Neutral Spine Assume a hands and knees position on a firm surface. Keep your hands under your shoulders and your knees under your hips. You may place padding under your knees for comfort. Drop your head and point your tailbone toward the ground below you. This will round out your lower back like an angry cat. Hold this position for ___ seconds. Slowly lift your head and release your tail bone so that your back sags into a large arch, like an old horse. Hold this position for seconds. Repeat this until you feel limber in your low back. Now, find your "sweet spot." This will be the most comfortable position somewhere between the two previous positions. This is your neutral spine. Once you have found this position, tense your stomach muscles to support your low back. Hold this position for seconds. Repeat times. Complete this exercise times per day. STRENGTHENING EXERCISES - Low Back Sprain These exercises may help you when beginning to rehabilitate your injury. These exercises should be done near your "sweet spot." This is the neutral, low-back arch, somewhere between fully rounded and fully arched, that is your least painful position. When performed in this safe range of motion, these exercises can be used for people who have either a flexion or extension based injury. These exercises may resolve your symptoms with or without further involvement from your physician, physical therapist or hearing dog trainer. While completing these exercises, remember: Muscles can gain both the endurance and the strength needed for everyday activities through controlled exercises. Complete these exercises as instructed by your physician, physical therapist or hearing dog trainer. Increase the resistance and repetitions only as guided. You may experience muscle soreness or fatigue, but the pain or discomfort you are trying to eliminate should never worsen during these exercises. If this pain does worsen, stop and make certain you are following the directions exactly. If the pain is still present after adjustments, discontinue the exercise until you can discuss the trouble with your caregiver. STRENGTHENING Deep Abdominals, Pelvic Tilt Lie on a firm bed or floor. Keeping your legs in front of you, bend your knees so they are both pointed toward the ceiling and your feet are flat on the floor. Tense your lower abdominal muscles to press your low back into the floor. This motion will rotate your pelvis so that your tail bone is scooping upwards rather than pointing at your feet or into the floor. With a gentle tension and even breathing, hold this position for seconds. Repeat times. Complete this exercise times per day. STRENGTHENING Abdominals, Crunches Lie on a firm bed or floor. Keeping your legs in front of you, bend your knees so they are both pointed toward the ceiling and your feet are flat on the floor. Cross your arms over your chest. Slightly tip your chin down without bending your neck. Tense your abdominals and slowly lift your trunk high enough to just clear your shoulder blades. Lifting higher can put excessive stress on the lower back and does not further strengthen your abdominal muscles. Control your return to the starting position. Repeat times. Complete this exercise times per day. STRENGTHENING Quadruped, Opposite UE/LE Lift Assume a hands and knees position on a firm surface. Keep your hands under your shoulders and your knees under your hips. You may place padding under your knees for comfort. Find your neutral spine and gently tense your abdominal muscles so that you can maintain this position. Your shoulders and hips should form a rectangle that is parallel with the floor and is not twisted. Keeping your trunk steady, lift your right hand no higher than your shoulder and then your left leg no higher than your hip. Make sure you are not holding your breath. Hold this position for seconds. Continuing to keep your abdominal muscles tense and your back steady, slowly return to your starting position. Repeat with the opposite arm and leg. Repeat times. Complete this exercise times per day. STRENGTHENING Abdominals and Quadriceps, Straight Leg Raise Lie on a firm bed or floor with both legs extended in front of you. Keeping one leg in contact with the floor, bend the other knee so that your foot can rest flat on the floor. Find your neutral spine, and tense your abdominal muscles to maintain your spinal position throughout the exercise. Slowly lift your straight leg off the floor about 6 inches for a count of 15, making sure to not hold your breath. Still keeping your neutral spine, slowly lower your leg all the way to the floor. Repeat this exercise with each leg times. Complete this exercise ____ times per day. POSTURE AND BODY MECHANICS CONSIDERATIONS - Low Back Sprain Keeping correct posture when sitting, standing or completing your activities will reduce the stress put on different body tissues, allowing injured tissues a chance to heal and limiting painful experiences. The following are general guidelines for improved posture. Your physician or physical therapist will provide you with any instructions specific to your needs. While reading these guidelines, remember: The exercises prescribed by your provider will help you have the flexibility and strength to maintain correct postures. The correct posture provides the best environment for your joints to work. All of your joints have less wear and tear when properly supported by a spine with good posture. This means you will experience a healthier, less painful body. Correct posture must be practiced with all of your activities, especially prolonged sitting and standing. Correct posture is as important when doing repetitive low-stress activities (typing) as it is when doing a single heavy- load activity (lifting). RESTING POSITIONS Consider which positions are most painful for you when choosing a resting position. If you have pain with flexion-based activities (sitting, bending, stooping, squatting), choose a position that allows you to rest in a less flexed posture. You would want to avoid curling into a position on your side. If your pain worsens with extension-based activities (prolonged standing, working overhead), avoid resting in an extended position such as sleeping on your stomach. Most people will find more comfort when they rest with their spine in a more neutral position, neither too rounded nor too arched. Lying on a non-sagging bed on your side with a pillow between your knees, or on your back with a pillow under your knees will often provide some relief. Keep in mind , being in any one position for a prolonged period of time, no matter how correct your posture, can still lead to stiffness. PROPER SITTING POSTURE In order to minimize stress and discomfort on your spine, you must sit with correct posture. Sitting with good posture should be effortless for a healthy body. Returning to good posture is a gradual process. Many people can work toward this most comfortably by using various supports until they have the flexibility and strength to maintain this posture on their own. When sitting with proper posture, your ears will fall over your shoulders and your shoulders will fall over your hips. You should use the back of the chair to support your upper back. Your lower back will be in a neutral position, just slightly arched. You may place a small pillow or folded towel at the base of your lower back for support. When working at a desk, create an environment that supports good, upright posture. Without extra support, muscles tire, which leads to excessive strain on joints and other tissues. Keep these recommendations in mind: CHAIR: A chair should be able to slide under your desk when your back makes contact with the back of the chair. This allows you to work closely. The chair's height should allow your eyes to be level with the upper part of your monitor and your hands to be slightly lower than your elbows. BODY POSITION Your feet should make contact with the floor. If this is not possible, use a foot rest. Keep your ears over your shoulders. This will reduce stress on your neck and low back. INCORRECT SITTING POSTURES If you are feeling tired and unable to assume a healthy sitting posture, do not slouch or slump. This puts excessive strain on your back tissues, causing more damage and pain. Healthier options include: Using more support, like a lumbar pillow. Switching tasks to something that requires you to be upright or walking. Talking a brief walk. Lying down to rest in a neutral-spine position. PROLONGED STANDING WHILE SLIGHTLY LEANING FORWARD When completing a task that requires you to lean forward while standing in one place for a long time, place either foot up on a stationary 2-4 inch high object to help maintain the best posture. When both feet are on the ground, the lower back tends to lose its slight inward curve. If this curve flattens (or becomes too large), then the back and your other joints will experience too much stress, tire more quickly, and can cause pain. CORRECT STANDING POSTURES Proper standing posture should be assumed with all daily activities, even if they only take a few moments, like when brushing your teeth. As in sitting, your ears should fall over your shoulders and your shoulders should fall over your hips. You should keep a slight tension in your abdominal muscles to brace your spine. Your tailbone should point down to the ground, not behind your body , resulting in an over-extended swayback posture. INCORRECT STANDING POSTURES Common incorrect standing postures include a forward head, locked knees and/or an excessive swayback. WALKING Walk with an upright posture. Your ears, shoulders and hips should all line-up. PROLONGED ACTIVITY IN A FLEXED POSITION When completing a task that requires you to bend forward at your waist or lean over a low surface, try to find a way to stabilize 3 out of 4 of your limbs. You can place a hand or elbow on your thigh or rest a knee on the surface you are reaching across. This will provide you more stability, so that your muscles do not tire as quickly. By keeping your knees relaxed, or slightly bent, you will also reduce stress across your lower back. CORRECT LIFTING TECHNIQUES DO : Assume a wide stance. This will provide you more stability and the opportunity to get as close as possible to the object which you are lifting. Tense your abdominals to brace your spine. Bend at the knees and hips. Keeping your back locked in a neutral-spine position, lift using your leg muscles. Lift with your legs, keeping your back straight. Test the weight of unknown objects before attempting to lift them. Try to keep your elbows locked down at your sides in order get the best strength from your shoulders when carrying an object. Always ask for help when lifting heavy or awkward objects. INCORRECT LIFTING TECHNIQUES DO NOT: Lock your knees when lifting, even if it is a small object. Bend and twist. Pivot at your feet or move your feet when needing to change directions. Assume that you can safely picket labor [employer] even a paperclip without proper posture. Document Released: 09/24/2006 Document Revised: 12/16/2012 Document Reviewed: ExitCare Patient Information 2014 [employer] [facility]. No follow up information was provided. Extracted from: Title: Office Visit Note Author: Emeka Wynne MD Date: 02/22/15 Assessment/Plan Lower back pain Continue with the present course of treatment. Hot packs, Advil and will start a muscle relaxer just at bedtime. Will use Flexeril 10mg. Ordered: Office Visit Level 3 Est 10059
--- OUTSIDE RECORDS SUMMARY | 2017-02-05 11:17 | XMS REPORT | Referral Summary ---
Author Organization Unknown Address Unknown Phone Unavailable Care Team Providers Care Searchlight Operator Name Role Phone Oskar Wynne Primary Care Physician [phone] Encounter VC Date(s): 12/03/14 - 12/03/14 [facility], [place], Family [address] [place], [place] [address] Discharge Diagnosis: Breathing difficult Discharge Disposition: Home or Self Care Attending Physician: Emeka Wynne MD Admitting Physician: Emeka Wynne MD Vital Signs Most recent to 1 oldest [Reference Range]: Peripheral Pulse 71 bpm Rate [60-100 bpm] (12/03/14 11:19 AM) Blood Pressure 124/68 mmHg [90-140/60-90 mmHg] (12/03/14 11:19 AM) Most recent to 1 oldest [Reference Range]: SpO2 97 % (12/03/14 11:19 AM) Problem List Condition Effective Dates Status [...] tablet 1 tabs, Oral, Daily, Fax to [employer] , # 90 tabs, 2 Refill(s) Special Instructions: Fax to [employer] Start Date: 04/15/14 Status: Ordered CeleXA 40 mg oral tablet 1 tabs, Oral, Daily, fax to [employer] , # 90 tabs, 2 Refill(s) Special Instructions: fax to [employer] Start Date: 04/15/14 Status: Ordered lisinopril-hydrochlorothiazide 20 mg-25 mg oral tablet 1 tabs, Oral, Daily, Fax to [phone], # 90 tabs, 2 Refill(s) Special Instructions: Fax to [id number] Start Date: 04/15/14 Status: Ordered Singulair 10 mg oral tablet 1 tabs, Oral, qPM, # 30 tabs, 2 Refill(s), Pharmacy: [facility] #[id number], 1 tabs Oral qPM Start Date: 12/03/14 [...]
--- OUTSIDE RECORDS SUMMARY | 2017-02-05 11:18 | XMS REPORT | Referral Summary ---
Author Author [facility] Organization [facility] Address Unknown Phone Unavailable Care Team Providers Care Negotiator Sales Name Role Phone Oskar Wynne Primary Care Physician [phone] Encounter Date(s): 05/23/16 - 05/23/16 [facility] [address] [place], [place] [address] Discharge Disposition: 01-Home or Self Care Attending Physician: Tony Jimenez MD Admitting Physician: Tony Jimenez MD Vital Signs No [...] Daily, # 3 Each, 1 Refill(s), Pharmacy: [facility] Start Date: 10/06/15 Status: Ordered albuterol CFC free 90 mcg/inh inhalation aerosol 1 puffs, Inhalation, q4hr, as needed for wheezing, # 18 g, 0 Refill(s) Start Date: 06/01/14 Status: Ordered allopurinol 300 mg oral tablet 300 mg 1 tabs, Oral, Daily, [facility] , # 90 tabs, 1 Refill(s), Pharmacy: [facility], 1 tabs Oral Daily,Instr:[facility] Start Date: 05/02/16 Status: Ordered Bactrim DS 800 mg-160 mg oral tablet 1 tabs, Oral, Daily, # 90 tabs, 1 Refill(s), Pharmacy: [facility] Start Date: 05/02/16 Status: Ordered citalopram 40 mg oral tablet See Instructions, TAKE 1 TABLET EVERY DAY, # 90 tabs, 1 Refill(s), eRx: [facility], TAKE 1 TABLET EVERY DAY Start Date: 04/17/16 Status: Ordered lisinopril-hydrochlorothiazide 20 mg-25 mg oral tablet 1 tabs, Oral, Daily, Fax to [id number], # 90 tabs, 1 Refill(s), Pharmacy: [facility] Start Date: 05/02/16 Status: Ordered meloxicam 7.5 mg oral tablet 7.5 mg 1 tabs, Oral, BID, # 40 tabs, 0 Refill(s), Pharmacy: [facility] # [id number], 1 tabs Oral BID,x20 days Start Date: 10/05/15 Stop Date: 10/25/15 Status: Ordered Nasacort AQ 1 sprays, Nasal, Daily, 0 Refill(s) Start Date: 06/18/15 Status: Ordered omeprazole 20 mg oral delayed release capsule 20 mg 1 caps, Oral, Daily, 0 Refill(s) Start Date: 05/16/16 Status: Ordered Singulair 10 mg oral tablet 10 mg 1 tabs, Oral, qPM, # 90 tabs, 1 Refill(s), Pharmacy: [facility], 1 tabs Oral qPM Start Date: 05/02/16 Status: Ordered Vitamin B Complex 100 0 Refill(s) Start Date: 05/23/16 Status: Ordered Vitamin B12 0 Refill(s) Start [...]
--- OUTSIDE RECORDS SUMMARY | 2017-02-05 11:18 | XMS REPORT | Referral Summary ---
Author Author [facility] Organization [facility] Address Unknown Phone Unavailable Care Team Providers Care Singer And Unloader Name Role Phone Oskar Wynne Primary Care Physician [phone] Encounter VC Date(s): 05/29/16 - 05/29/16 [facility] [place] [address] [place] [address] Discharge Disposition: 01-Home or Self Care Attending Physician: Emeka Wynne MD Admitting Physician: Emeka Wynne MD Vital Signs Most recent to 1 oldest [Reference Range]: Blood Pressure 132/78 mmHg [90-140/60-90 mmHg] (05/29/16 1:38 PM) Problem List Condition Effective Dates Status [...] mg 1 tabs, Oral, Daily, Fax to [employer] , # 90 tabs, 1 Refill(s), Pharmacy: [facility], 1 tabs Oral Daily,Instr:Fax to [employer] Start Date: 05/02/16 Status: Ordered Bactrim DS 800 mg-160 mg oral tablet 1 tabs, Oral, Daily, # 90 tabs, 1 Refill(s), Pharmacy: [facility] Start Date: 05/02/16 Status: Ordered citalopram 40 mg oral tablet See Instructions, TAKE 1 TABLET EVERY DAY, # 90 tabs, 1 Refill(s), [facility], TAKE 1 TABLET EVERY DAY Start Date: 04/17/16 Status: Ordered lisinopril-hydrochlorothiazide 20 mg-25 mg oral tablet 1 tabs, Oral, Daily, Fax to [id number], # 90 tabs, 1 Refill(s), Pharmacy: [facility] Start Date: 05/02/16 [...] Author: Emeka Wynne MD Date: Family Medicine Musculoskeletal Pain Musculoskeletal pain is [...] you get your test results. Only take tjox-die-tzdkzwf or prescription medicines for pain, discomfort , [...] Released: 09/24/2006 Document Revised: 12/16/2012 Document Reviewed: [facility] Patient Information 2016 [employer] [facility]. No follow up information was provided. Extracted from: Title: Office Visit Note Author: Emeka Wynne MD Date: 05/29/16 Assessment/Plan Chest pain Patient to follow up with Dr. Jimenez and have more testicle Ordered: Office Visit Level 4 Est 92816 COPD exacerbation stable at the present Ordered: Office Visit Level 4 Est 22966 Depression controlled with medications. Ordered: Office Visit Level 4 Est 65506
--- OUTSIDE RECORDS SUMMARY | 2017-02-05 11:18 | XMS REPORT | Referral Summary ---
Author Author [facility] Organization [facility] Address Unknown Phone Unavailable Care Team Providers Care Winder Hand Name Role Phone Oskar Wynne Primary Care Physician [phone] Encounter VC Date(s): 05/05/15 - 05/05/15 [facility] [place], [address] [place] [address] Discharge Disposition: 01-Home or Self Care Attending Physician: Emeka Wynne MD Admitting Physician: Emeka Wynne MD Vital Signs Most recent to 1 oldest [Reference Range]: Temperature Tympanic 36.9 degC [36.6-38.1 degC] (05/05/15 4:22 PM) Apical Heart Rate 64 bpm [60-100 bpm] (05/05/15 4:22 PM) Blood Pressure 136/68 mmHg [90-140/60-90 mmHg] (05/05/15 4:22 PM) Problem List Condition Effective Dates Status [...] Daily, # 3 Each, 1 Refill(s), Pharmacy: [facility] Start Date: 10/06/15 Status: Ordered albuterol CFC free 90 mcg/inh inhalation aerosol 1 puffs, Inhalation, q4hr, as needed for wheezing, # 18 g, 0 Refill(s) Start Date: 06/01/14 Status: Ordered allopurinol 300 mg oral tablet 300 mg 1 tabs, Oral, Daily, Fax to [employer] [facility] , # 90 tabs, 1 Refill(s), Pharmacy: [facility], 1 tabs Oral Daily,Instr:Fax to [facility] Start Date: 10/06/15 Status: Ordered CeleXA 40 mg oral tablet 40 mg 1 tabs, Oral, Daily, fax to [facility] , # 90 tabs, 1 Refill(s), Pharmacy: [facility], 1 tabs Oral Daily,Instr:fax to [facility] Start Date: 10/06/15 Status: Ordered lisinopril-hydrochlorothiazide 20 mg-25 mg oral tablet 1 tabs, Oral, Daily, Fax to [phone], # 90 tabs, 1 Refill(s), Pharmacy: [facility] Start Date: 10/06/15 Status: Ordered meloxicam 7.5 mg oral tablet 7.5 mg 1 tabs, Oral, BID, # 40 tabs, 0 Refill(s), Pharmacy: [facility] # [id number], 1 tabs Oral BID,x20 days Start Date: 10/05/15 Stop Date: 10/25/15 Status: Ordered Nasacort AQ 1 sprays, Nasal, Daily, 0 Refill(s) Start Date: 06/18/15 Status: Ordered Singulair 10 mg oral tablet 10 mg 1 tabs, Oral, qPM, # 90 tabs, 1 Refill(s), Pharmacy: [facility], 1 tabs Oral qPM Start Date: 10/06/15 Status: Ordered Vitamin B12 0 Refill(s) Start Date: 10/05/15 Status: Ordered Vitamin C 0 Refill(s) Start Date: 06/02/15 Status: Ordered Zantac 150 oral tablet 1 tabs, Oral, Bedtime (once a day), # 30 tabs, 0 Refill(s) Start Date: 04/13/14 Status: Ordered Results Hematology Most recent to 1 oldest [Reference Range]: WBC [4.8-10.8 7.2 10*3/uL 10*3/uL] (05/05/15 4:53 PM) RBC [4.60-6.20 4.22 10*6/uL 10*6/uL] *LOW* (05/05/15 4:53 PM) Hgb [14.0-18.0 13.4 gm/dL gm/dL] *LOW* (05/05/15 4:53 PM) Hct [42.0-52.0 %] 38.6 % *LOW* (05/05/15 4:53 PM) MCV [82.0-99.0 fL] 91.5 fL (05/05/15 4:53 PM) MCH [27.0-32.0 pg] 31.8 pg (05/05/15 4:53 PM) MCHC [32.0-36.0 34.7 gm/dL gm/dL] (05/05/15 4:53 PM) RDW [11.5-14.5 %] 13.5 % (05/05/15 4:53 PM) Platelet [150-400 198 10*3/uL 10*3/uL] (05/05/15 4:53 PM) MPV [8.8-14.8 fL] 9.8 fL (05/05/15 4:53 PM) Immature 0.3 % Granulocytes (05/05/15 4:53 PM) [0.0-1.0 %] Neutrophils [51-75 59 % %] (05/05/15 4:53 PM) Lymphocytes [20-46 23 % %] (05/05/15 4:53 PM) Monocytes [4-11 %] 15 % *HI* (05/05/15 4:53 PM) Eosinophils [0-4 %] 2 % (05/05/15 4:53 PM) Basophils [0-2 %] 1 % (05/05/15 4:53 PM) Neutro Absolute 4.24 10*3 [1.90-7.00 10*3] (05/05/15 4:53 PM) Lymph Absolute 1.67 10*3 [0.80-3.30 10*3] (05/05/15 4:53 PM) Sampson Absolute 1.10 10*3 [0.30-1.00 10*3] *HI* (05/05/15 4:53 PM) Eos Absolute 0.17 10*3 [0.00-0.50 10*3] (05/05/15 4:53 PM) Baso Absolute 0.04 10*3 [0.00-0.20 10*3] (05/05/15 4:53 PM) Chemistry Most recent to 1 oldest [Reference Range]: Sodium Lvl [135-144 141 mEq/L mEq/L] (05/05/15 4:53 PM) Potassium Lvl 4.1 mEq/L [3.5-5.2 mEq/L] (05/05/15 4:53 PM) Chloride [99-111 106 mEq/L mEq/L] (05/05/15 4:53 PM) CO2 [23-31 mEq/L] 28 mEq/L (05/05/15 4:53 PM) AGAP [3-20] 7 (05/05/15 4:53 PM) BUN [8-26 mg/dL] 23 mg/dL (05/05/15 4:53 PM) Glucose Lvl [70-99 86 mg/dL mg/dL] (05/05/15 4:53 PM) Creatinine Lvl 1.21 mg/dL [0.72-1.25 mg/dL] (05/05/15 4:53 PM) eGFR [>60 mL/min] 58 mL/min 1 *ABN* (05/05/15 4:53 PM) Calcium Lvl 9.0 mg/dL [8.9-10.5 mg/dL] (05/05/15 4:53 PM) 1Result Comment: Multiply eGFR results by [...] Patient Education Author: Emeka Wynne MD Date: 05/09 ENT Dizziness Dizziness is a common problem. [...] other illnesses that cause body fluid loss ( dehydration). Diseases or conditions such as Parkinson's disease, [...] your legs often if you need to channel marketing specialist one place for a long time. Tighten [...] are not doing well or get worse. Document Released: 03/20/2002 Document Revised: 09/29/2014 Document Reviewed: [facility] [place] Patient Information 2015 [employer] [facility]. This information is not intended to replace advice given to you by your health care provider. Make sure you discuss any questions you have with your health care provider. Family Medicine Heat Stress in the Elderly Elderly people (people aged 65 years and older) are more prone to heat stress than younger people for several reasons: Elderly people do not adjust as well as young people to sudden changes in temperature. They are more likely to have a chronic medical condition that upsets normal body responses to heat. They are more likely to take prescription medicines that impair the body' s ability to regulate its temperature or that inhibit perspiration. HEAT STROKE Heat stroke is the most serious heat-related illness. It occurs when the body becomes unable to control its temperature. The body temperature rises rapidly. Then the body loses its ability to sweat and is unable to cool down. The body temperature rises to 105 F (40.6 C) or higher within 10 to 15 minutes. Heat stroke can cause or permanent disability if emergency treatment is not provided. SYMPTOMS Warning signs vary but may include the following: An extremely high body temperature (above 103 F (39.4 C)). Nausea. Red, hot, and dry skin (no sweating). Rapid, strong pulse. Throbbing headache. Dizziness. HEAT EXHAUSTION Heat exhaustion is a milder form of heat-related illness. It can develop after several days of exposure to high temperatures and not enough fluids. SYMPTOMS Warning signs vary but may include the following: Heavy sweating. Paleness. Muscle cramps. Tiredness. Weakness. Dizziness. Headache. Nausea or vomiting. Fainting. Skin: may be cool and moist. Pulse rate: fast and weak. Breathing: fast and shallow. WHAT YOU CAN DO TO PROTECT YOURSELF You can follow these prevention tips to protect yourself from heat-related stress: Drink cool, nonalcoholic, non-caffeinated beverages. If your caregiver generally limits the amount of fluid you drink or has you on water pills, ask how much you should drink when the weather is hot. Avoid extremely cold liquids. They can cause cramps. Rest. Take a cool shower, bath, or sponge bath. If possible, seek an air-conditioned environment. If you do not have air conditioning, visit an air-conditioned shopping mall or public library to cool off. Wear lightweight clothing. If possible, remain indoors in the heat of the day. Do not engage in strenuous activities. WHAT YOU CAN DO TO HELP PROTECT ELDERLY RELATIVES AND NEIGHBORS If you have elderly relatives or neighbors, help them protect themselves from heat-related stress. Visit older adults at risk at least twice a day. Watch them for signs of heat exhaustion or heat stroke. Take them to air-conditioned locations if they have transportation problems. Make sure older adults have access to an electric fan whenever possible. WHAT YOU CAN DO FOR SOMEONE WITH HEAT STRESS If you see any signs of severe heat stress, you may be dealing with a life- threatening emergency. Have someone call for immediate medical assistance while you begin cooling the affected person. Do the following: Get the person to a shady area. Cool the person rapidly, using whatever methods you can. For example, immerse the person in a tub of cool water or place the person in a cool shower. [place] the person with cool water from a garden hose or sponge the person with cool water. If the humidity is low, wrap the person in a cool, wet sheet. Fan him/her quickly. Monitor body temperature. Continue cooling efforts until the body temperature drops to 101 - 102F (38.3 C - 38.9 C). If emergency medical personnel are delayed, call the hospital emergency room for further instructions. Do not give the person alcohol to drink. Get medical care as soon as possible. Document Released: 09/12/2010 Document Revised: 12/16/2012 Document Reviewed: [facility] Patient Information 2015 [facility], [facility]. This information is not intended to replace advice given to you by your health care provider. Make sure you discuss any questions you have with your health care provider. No follow up information was provided. Extracted from: Title: Office Visit Note Author: Emeka Wynne MD Date: 05/05/15 Assessment/Plan Aching headache Will get lab and follow. Drinking electrolytes and water. Ordered: Office Visit Level 3 Est 96542 Dizziness Ordered: Office Visit Level 3 Est 86699 Exposure to excessive natural heat Ordered: Office Visit Level 3 Est 89963
--- OUTSIDE RECORDS SUMMARY | 2017-02-05 11:18 | XMS REPORT | Referral Summary ---
Author Author [facility] Organization [facility] Address Unknown Phone Unavailable Care Team Providers Care Chair Trimmer Name Role Phone Oskar Wynne Primary Care Physician [phone] Encounter Date(s): 10/05/15 - 10/05/15 [facility] [place], [address] [place] [address] Discharge Diagnosis: Left wrist sprain Discharge Disposition: 01-Home or Self Care Attending Physician: Emeka Wynne MD Admitting Physician: Emeka Wynne MD Vital Signs Most recent to 1 oldest [Reference Range]: Blood Pressure 110/60 mmHg [90-140/60-90 mmHg] (10/05/15 3:00 PM) Problem List Condition Effective Dates Status [...] Daily, # 3 Each, 1 Refill(s), Pharmacy: [facility] # [id number] Start Date: 10/05/15 Status: Ordered albuterol CFC free 90 mcg/inh inhalation aerosol 1 puffs, Inhalation, q4hr, as needed for wheezing, # 18 g, 0 Refill(s) Start Date: 06/01/14 Status: Ordered allopurinol 300 mg oral tablet 300 mg 1 tabs, Oral, Daily, Fax to [facility] , # 90 tabs, 1 Refill(s), Pharmacy: [facility] #[id number], 1 tabs Oral Daily,Instr:Fax to [facility] Start Date: 10/05/15 Status: Ordered CeleXA 40 mg oral tablet 40 mg 1 tabs, Oral, Daily, fax to [facility] , # 90 tabs, 1 Refill(s), Pharmacy: [facility] #[id number], 1 tabs Oral Daily,[facility] Start Date: 10/05/15 Status: Ordered lisinopril-hydrochlorothiazide 20 mg-25 mg oral tablet 1 tabs, Oral, Daily, Fax to [phone], # 90 tabs, 1 Refill(s), Pharmacy: [facility] #[id number] Start Date: 10/05/15 Status: Ordered meloxicam 7.5 mg oral tablet 7.5 mg 1 tabs, Oral, BID, # 40 tabs, 0 Refill(s), Pharmacy: [facility] # [id number], 1 tabs Oral BID,x20 days Start Date: 10/05/15 Stop Date: 10/25/15 Status: Ordered Nasacort AQ 1 sprays, Nasal, Daily, 0 Refill(s) Start Date: 06/18/15 Status: Ordered Singulair 10 mg oral tablet 10 mg 1 tabs, Oral, qPM, # 90 tabs, 1 Refill(s), Pharmacy: [facility] # [id number], 1 tabs Oral qPM Start Date: 10/05/15 Status: Ordered Vitamin B12 0 Refill(s) Start [...] Author: Emeka Wynne MD Date: Family Medicine Sprain A sprain is a tear in one of the strong, fibrous tissues that connect your bones (ligaments). The severity of the sprain depends on how much of the ligament is torn. The tear can be either partial or complete. CAUSES Often, sprains are a result of a fall or an injury. The force of the impact causes the fibers of your ligament to stretch beyond their normal length. This excess tension causes the fibers of your ligament to tear. SYMPTOMS You may have some loss of motion or increased pain within your normal range of motion. Other symptoms include: Bruising. Tenderness. Swelling. DIAGNOSIS In order to diagnose a sprain, your caregiver will physically examine you to determine how torn the ligament is. Your caregiver may also suggest an X-ray exam to make sure no bones are broken. TREATMENT If your ligament is only partially torn, treatment usually involves keeping the injured area in a fixed position (immobilization) for a short period. To do this , your caregiver will apply a bandage, cast, or splint to keep the area from moving until it heals. For a partially torn ligament, the healing process usually takes 2 to 3 weeks. If your ligament is completely torn, you may need surgery to reconnect the ligament to the bone or to reconstruct the ligament. After surgery, a cast or splint may be applied and will need to stay on for 4 to 6 weeks while your ligament heals. HOME CARE INSTRUCTIONS Keep the injured area elevated to decrease swelling. To ease pain and swelling, apply ice to your joint twice a day, for 2 to 3 days. Put ice in a plastic bag. Place a towel between your skin and the bag. Leave the ice on for 15 minutes. Only take jlkv-fvi-jarkjqs or prescription medicine for pain as directed by your caregiver. Do not leave the injured area unprotected until pain and stiffness go away (usually 3 to 4 weeks). Do not allow your cast or splint to get wet. Cover your cast or splint with a plastic bag when you shower or bathe. Do not swim. Your caregiver may suggest exercises for you to do during your recovery to prevent or limit permanent stiffness. SEEK IMMEDIATE MEDICAL CARE IF: Your cast or splint becomes damaged. Your pain becomes worse. MAKE SURE YOU: Understand these instructions. Will watch your condition. Will get help right away if you are not doing well or get worse. Document Released: 09/21/2001 Document Revised: 12/16/2012 Document Reviewed: [employer]Care Patient Information 2015 [facility], [facility]. This information is not intended to replace advice given to you by your health care provider. Make sure you discuss any questions you have with your health care provider. No follow up information was provided. Extracted from: Title: Office Visit Note Author: Emeka Wynne MD Date: 10/05/15 Assessment/Plan Left wrist sprain, Unspecified sprain of left wrist, initial encounter Wrist splint and Mobic 7.5mg bid and follow up if pain continues. Ordered: Office Visit Level 3 Est 33726 Wrist pain Ordered: Office Visit Level 3 Est 18735 Wrist hand orthosis, wrist extension control cock-up, non molded, [id number] XR Wrist Complete Left Orders: meloxicam, 7.5 mg 1 tabs, Oral, BID, # 40 tabs, 0 Refill(s), Pharmacy : [facility] #[id number], 1 tabs Oral BID,x20 days
--- OUTSIDE RECORDS SUMMARY | 2017-02-05 11:18 | XMS REPORT | Continuity of Care Document ---
Author Author [facility] Organization [facility] Address Unknown Phone Unavailable Allergies Active Description Code Type Severity Reaction Onset Reported/Identified Relationship to Patient Clinical Status Yes No Known Drug Allergies No Known Drug Allergies Drug Allergy Unknown N/A 04/09/2012 Yes No Known Drug Intolerances No Known Drug Intolerances Drug Allergy Unknown N/A 04/09/2012 Yes No Known Allergies No Known Allergies Drug Allergy Unknown N/A 04/07/2014 Yes No Known Medication Allergies NKMA N/A N/A 06/09/2014 Medications Problems Procedures Results Test Result Range CBC W/DIFF - 04/07/14 12:33 BASOPHIL # 0.0 k/cumm 0.0-0.2 BASOPHIL % 1 % 0-1 EOSINOPHIL # 0.1 k/cumm 0.1-0.5 EOSINOPHIL % 1 % 2-4 GRANULOCYTE # 5.2 k/cumm 2.0-9.0 GRANULOCYTE % 65 % 50-75 LYMPHOCYTE # 1.8 k/cumm 1.0-4.0 LYMPHOCYTE % 22 % 20-30 MEAN CELL HGB 31.6 pg 27.0-33.0 MEAN CELL HGB CONCENTRATION 34.4 g/dL 32.0-37.0 MEAN CELL VOLUME 91.7 fl 80.0-100.0 MONOCYTE # 1.0 k/cumm 0.1-1.0 MONOCYTE % 12 % 4-6 RED BLOOD CELL 4.24 m/cumm 4.00-6.00 RED CELL DISTRIBUTION WIDTH 13.4 % 11.0- 15.6 WHITE BLOOD CELL 8.1 k/cumm 5.0-10.0 HEMOGLOBIN 13.4 gm/dL 14.0-18.0 HEMATOCRIT 38.9 % 40.0-54.0 PLATELET COUNT 188 k/cumm 150-400 CHEM/HEM PROFILE-BEDSIDE - 04/07/14 12:34 POTASSIUM 3.9 mmol/L 3.5-5.3 METHOD Bedside ANION GAP 17 mmol/L 10-20 METHOD Bedside GLUCOSE 94 mg/dL 70-99 BLOOD UREA NITROGEN 27 mg/dL 7-20 CREATININE 1.3 mg/dL 0.8-1.3 HEMOGLOBIN 12.6 gm/dL 14.0-18.0 HEMATOCRIT 37.0 % 40.0-54.0 SODIUM 139 mmol/L 135-148 CHLORIDE 105 mmol/L 98-110 CARBON DIOXIDE 22 mmol/L 21-32 CALCIUM IONIZED 4.7 mg/dL 4.5-5.3 TROPONIN I BEDSIDE - 04/07/14 12:35 METHOD Bedside TROPONIN I < 0.04 ng/mL < 0.11 CARBOXYHGB (CARBON MONOXIDE) - 04/07/14 13:50 CARBOXYHGB (CARBON MONOXIDE) 0.9 % 0.0- 1.5 Iron Profile - 05/02/16 14:38 Iron 82 ug/dL 65-175 Iron Binding Capacity 238 ug/dL 260-445 Percent Saturation 34 % 11-46 Unbound Iron Content 156 ug/dl 126-382 CBC With Platelet and Differential - 12/26/16 15:12 Absolute Basophils 0.02 10*3/uL 0.00- 0.20 Absolute Eosinophils 0.11 10*3/uL 0.00- 0.50 Absolute Lymphocytes 1.04 10*3/uL 0.80- 3.30 Absolute Monocytes 0.97 10*3/uL 0.30- 1.00 Absolute Neutrophils 4.62 10*3/uL 1.90- 7.00 Basophils 0 % 0-2 Eosinophils 2 % 0-4 HCT 24.6 % 42.0-52.0 HGB 8.1 g/dL 14.0-18.0 Immature Granulocytes 0.3 % 0.0-1.0 Lymphocytes 15 % 20-46 MCH 31.6 pg 27.0-32.0 MCHC 32.9 g/dL 32.0-36.0 MCV 96.1 fL 82.0-99.0 Monocytes 14 % 4-11 MPV 9.5 fL 8.8-14.8 Neutrophils 68 % 51-75 Platelet Count 197 K/uL 150-400 RBC 2.56 10*6/uL 4.60-6.20 RDW 14.6 % 11.5-14.5 WBC 6.8 K/uL 4.8-10.8 Iron Profile - 12/26/16 15:12 Iron 74 ug/dL 65-175 Iron Binding Capacity 228 ug/dL 260-445 Percent Saturation 32 % 11-46 Unbound Iron Content 154 ug/dl 126-382 Uric Acid - 12/26/16 15:12 Uric Acid 3.2 mg/dL 3.5-7.2 Basic Metabolic Panel (BMP) - 12/26/16 15:12 Anion Gap 6 NA 3-20 BUN 45 mg/dL 8-26 Calcium 8.3 mg/dL 8.4-10.2 Chloride 113 mEq/L 99-111 CO2 17 mEq/L 23-31 Creatinine 2.35 mg/dL 0.72-1.25 Glucose 104 mg/dL 70-99 Potassium 4.5 mEq/L 3.5-5.2 Sodium 136 mEq/L 135-144 eGFR - 12/26/16 15:12 eGFR 27 mL/min >60 Ferritin - 12/26/16 15:12 Ferritin 589 ng/mL 22-275 B12 and Folate - 12/26/16 15:12 Folate 17.7 ng/mL 7.0-31.4 Vitamin B12 438 pg/mL 213-816 Encounters ACCT No. Visit Date/Time Discharge Status Pt. Type Provider Facility Loc./Unit Complaint [id number] 04/07/2014 11:55:00 2013 14:30:00 DIS Emergency [facility], Jarrod Kurtz [facility] W.EDS
--- OUTSIDE RECORDS SUMMARY | 2017-02-05 11:18 | XMS REPORT | Referral Summary ---
Author Author [facility] Organization [facility] Address Unknown Phone Unavailable Care Team Providers Care Sterile Supervisor Name Role Phone Oskar Wynne Primary Care Physician [phone] Encounter Date(s): 06/02/16 - 06/02/16 [facility] [address] [place], [place] [address] Discharge Disposition: 01-Home or Self Care Attending Physician: Michele Gonzalez MD Admitting Physician: Michele Gonzalez MD Vital Signs No data available for [...] 3 Each, 1 Refill(s), Pharmacy: [facility] Start Date: 10/06/15 Status: Ordered albuterol CFC free 90 mcg/inh inhalation aerosol 1 puffs, Inhalation, q4hr, as needed for wheezing, # 18 g, 0 Refill(s) Start Date: 06/01/14 Status: Ordered allopurinol 300 mg oral tablet 300 mg 1 tabs, Oral, Daily, [facility] , # 90 tabs, 1 Refill(s), Pharmacy: [facility], 1 tabs Oral Daily,Instr:Fax to [employer] Start Date: 05/02/16 Status: Ordered Bactrim DS 800 mg-160 mg oral tablet 1 tabs, Oral, Daily, # 90 tabs, 1 Refill(s), Pharmacy: [facility] Start Date: 05/02/16 Status: Ordered citalopram 40 mg oral tablet See Instructions, TAKE 1 TABLET EVERY DAY, # 90 tabs, 1 Refill(s), eRx: [facility], TAKE 1 TABLET EVERY DAY Start Date: 04/17/16 Status: Ordered lisinopril-hydrochlorothiazide 20 mg-25 mg oral tablet 1 tabs, Oral, Daily, Fax to [phone], # 90 tabs, 1 Refill(s), Pharmacy: [facility] Start Date: 05/02/16 Status: Ordered Nasacort AQ 1 sprays, Nasal, Daily, 0 Refill(s) Start Date: 06/18/15 Status: Ordered omeprazole 20 mg oral delayed release capsule 20 mg 1 caps, Oral, Daily, 0 Refill(s) Start Date: 05/16/16 Status: Ordered Singulair 10 mg oral tablet 10 mg 1 tabs, Oral, qPM, # 90 tabs, 1 Refill(s), Pharmacy: [facility], 1 tabs Oral qPM [...]
--- OUTSIDE RECORDS SUMMARY | 2017-02-05 11:18 | XMS REPORT | Referral Summary ---
Author Author [facility] Organization [facility] Address Unknown Phone Unavailable Care Team Providers Care Director [employer] Name Role Phone Oskar Wynne Primary Care Physician [phone] Encounter Date(s): 06/02/15 - 06/02/15 [facility], [address] [place] [address] Discharge Diagnosis: Anxiety and depression Discharge Disposition: 01-Home or Self Care Attending Physician: Emeka Wynne MD Admitting Physician: Emeka Wynne MD Vital Signs Most recent to 1 oldest [Reference Range]: Blood Pressure 128/60 mmHg [90-140/60-90 mmHg] (06/02/15 1:56 PM) Problem List Condition Effective Dates Status [...] Daily, # 3 Each, 1 Refill(s), Pharmacy: [facility] [employer] [facility] Delivery Start Date: 10/06/15 Status: Ordered albuterol CFC free 90 mcg/inh inhalation aerosol 1 puffs, Inhalation, q4hr, as needed for wheezing, # 18 g, 0 Refill(s) Start Date: 06/01/14 Status: Ordered allopurinol 300 mg oral tablet 300 mg 1 tabs, Oral, Daily, [facility] , # 90 tabs, 1 Refill(s), Pharmacy: [facility], 1 tabs Oral Daily,Instr[facility] Start Date: 10/06/15 Status: Ordered CeleXA 40 mg oral tablet 40 mg 1 tabs, Oral, Daily, [facility] , # 90 tabs, 1 Refill(s), Pharmacy: [facility], 1 tabs Oral Daily,Instr[facility] Start Date: 10/06/15 Status: Ordered lisinopril-hydrochlorothiazide 20 mg-25 mg oral tablet 1 tabs, Oral, Daily, Fax to [phone], # 90 tabs, 1 Refill(s), Pharmacy: [facility] Start Date: 10/06/15 Status: Ordered meloxicam 7.5 mg oral tablet 7.5 mg 1 tabs, Oral, BID, # 40 tabs, 0 Refill(s), Pharmacy: [facility] # [id number], 1 tabs Oral BID,x20 days Start Date: 10/05/15 Stop Date: 10/25/15 Status: Ordered Nasacort AQ 1 sprays, Nasal, Daily, 0 Refill(s) Start Date: 06/18/15 Status: Ordered Singulair 10 mg oral tablet 10 mg 1 tabs, Oral, qPM, # 90 tabs, 1 Refill(s), Pharmacy: [facility], 1 tabs Oral qPM Start Date: 10/06/15 Status: Ordered Vitamin B12 0 Refill(s) Start Date: 10/05/15 Status: Ordered Vitamin C 0 Refill(s) Start Date: 06/02/15 Status: Ordered Zantac 150 oral tablet 1 tabs, Oral, Bedtime (once a day), # 30 tabs, 0 Refill(s) Start Date: 04/13/14 Status: Ordered Results Chemistry Most recent to 1 oldest [Reference Range]: T4 [4.8-11.7 mcg/dL] 4.9 mcg/dL (06/02/15 2:30 PM) TSH [0.35-4.94] 1.23 (06/02/15 2:30 PM) Urinalysis Most recent to 1 oldest [Reference Range]: UA Color Yellow (06/02/15 2:30 PM) UA Appear Sl Cloudy (06/02/15 2:30 PM) UA pH [5.0-8.0] 5.0 (06/02/15 2:30 PM) UA Leuk Est Pos 2+ [Negative] *ABN* (06/02/15 2:30 PM) UA Nitrite Negative [Negative] (06/02/15 2:30 PM) UA Protein Negative [Negative] (06/02/15 2:30 PM) UA Glucose Negative [Negative] (06/02/15 2:30 PM) UA Ketones Negative [Negative] (06/02/15 2:30 PM) UA Urobilinogen 0.2 mg/dL (06/02/15 2:30 PM) UA Bili [Negative] Negative (06/02/15 2:30 PM) UA Blood Trace *ABN* (06/02/15 2:30 PM) UA Spec Grav 1.010 [1.003-1.030] (06/02/15 2:30 PM) Type Clean Catch (06/02/15 2:30 PM) UA WBC [0-4 /HPF] >50 /HPF *ABN* (06/02/15 2:30 PM) UA RBC [0-2] 2-5 (06/02/15 2:30 PM) Epithelial Cells 0-2 (06/02/15 2:30 PM) UA Bacteria Moderate *ABN* (06/02/15 2:30 PM) Microbiology Reports TEST: Urine Culture1 STATUS: Auth (Verified) BODY SITE: SOURCE: Urine COLLECTED DATE/TIME: 06/02/15 2:30 PM Urine Culture Normal urogenital/skin ashley present Staphylococcus aureus - Methicillin Resistant 30-50,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 Randall cup/law tube with boric acid Immunizations Vaccine Date Refusal Reason tetanus/diphth/pertuss (Tdap) [...] Author: Emeka Wynne MD Date: Family Medicine Urinary Tract Infection A urinary tract infection (UTI) can occur any place along the urinary tract. The tract includes the kidneys, ureters, bladder, and urethra. A type of germ called bacteria often causes a UTI. UTIs are often helped with antibiotic medicine. HOME CARE If given, take antibiotics as told by your doctor. Finish them even if you start to feel better. Drink enough fluids to keep your pee (urine) clear or pale yellow. Avoid tea, drinks with caffeine, and bubbly (carbonated) drinks. Pee often. Avoid holding your pee in for a long time. Pee before and after having sex (intercourse). Wipe from front to back after you poop (bowel movement) if you are a woman. Use each tissue only once. GET HELP RIGHT AWAY IF: You have back pain. You have lower belly (abdominal) pain. You have chills. You feel sick to your stomach (nauseous). You throw up (vomit). Your burning or discomfort with peeing does not go away. You have a fever. Your symptoms are not better in 3 days. MAKE SURE YOU: Understand these instructions. Will watch your condition. Will get help right away if you are not doing well or get worse. Document Released: 03/12/2009 Document Revised: 06/18/2013 Document Reviewed: [facility] Patient Information 2015 [employer] [facility]. This information is not intended to replace advice given to you by your health care provider. Make sure you discuss any questions you have with your health care provider. No follow up information was provided. Extracted from: Title: Office Visit Note Author: Emeka Wynne MD Date: 06/02/15 Assessment/Plan Acute UTI Will treat the infection with Septra DS and watch for improvement in the depression. Ordered: Office Visit Level 3 Est 95335 Anxiety and depression Ordered: Office Visit Level 3 Est 18512
--- OUTSIDE RECORDS SUMMARY | 2017-02-05 11:18 | XMS REPORT | Referral Summary ---
Author Author [facility] Organization [facility] Address Unknown Phone Unavailable Care Team Providers Care Kindergarten Prep Teacher Name Role Phone Oskar Wynne Primary Care Physician [phone] Encounter Date(s): 05/23/16 - 05/23/16 [facility] [address] [place], [place] [address] Discharge Diagnosis: Asthma Discharge Diagnosis: Chest pain Discharge Diagnosis: Mitral valve disorder Discharge Diagnosis: Anemia Discharge Disposition: 01-Home or Self Care Attending Physician: Tony Jimenez MD Admitting Physician: Tony Jimenez MD Vital Signs Most recent to 1 oldest [Reference Range]: Peripheral Pulse 68 bpm Rate [60-100 bpm] (05/23/16 12:28 PM) Blood Pressure 128/60 mmHg [90-140/60-90 mmHg] (05/23/16 12:28 PM) Problem List Condition Effective Dates Status [...] 3 Each, 1 Refill(s), Pharmacy: [facility] [employer] [facility] Delivery Start Date: 10/06/15 Status: Ordered albuterol CFC free 90 mcg/inh inhalation aerosol 1 puffs, Inhalation, q4hr, as needed for wheezing, # 18 g, 0 Refill(s) Start Date: 06/01/14 Status: Ordered allopurinol 300 mg oral tablet 300 mg 1 tabs, Oral, Daily, Fax to [employer] , # 90 tabs, 1 Refill(s), Pharmacy: [facility] [employer] Mail Delivery, 1 tabs Oral Daily,Instr:Fax to [employer] Start Date: 05/02/16 Status: Ordered Bactrim DS 800 mg-160 mg oral tablet 1 tabs, Oral, Daily, # 90 tabs, 1 Refill(s), Pharmacy: [facility] Start Date: 05/02/16 Status: Ordered citalopram 40 mg oral tablet See Instructions, TAKE 1 TABLET EVERY DAY, # 90 tabs, 1 Refill(s), eRx: [facility], TAKE 1 TABLET EVERY DAY Start Date: 04/17/16 Status: Ordered lisinopril-hydrochlorothiazide 20 mg-25 mg oral tablet 1 tabs, Oral, Daily, Fax to [phone], # 90 tabs, 1 Refill(s), Pharmacy: [facility] Start Date: 05/02/16 Status: Ordered meloxicam 7.5 mg oral tablet 7.5 mg 1 tabs, Oral, BID, # 40 tabs, 0 Refill(s), Pharmacy: [facility] # [id number], 1 tabs Oral BID,x20 days Start Date: [...] 90 tabs, 1 Refill(s), Pharmacy: [facility], 1 tabs Oral qPM [...] Extracted from: Title: Office Visit Note Author: Tony Jimenez MD Date: 05/23/16 Assessment/Plan 1.Chest pain Ordered: Echo, 2-D + Doppler + Color Flow NM Myocardial Spect Multi Rest/Stress Request for Cardiac Tx/Procedures 2.Mitral valve disorder Ordered: Echo, 2-D + Doppler + Color Flow NM Myocardial Spect Multi Rest/Stress Request for Cardiac Tx/Procedures 3.Anemia Ordered: Echo, 2-D + Doppler + Color Flow NM Myocardial Spect Multi Rest/Stress Request for Cardiac Tx/Procedures 4.Asthma Discussion: This patient has an extensive history of symptoms and of cardiac testing. On the other hand, his recent symptoms of chest pain certainly could be consistent with cardiac pain. I'm concerned that he is mildly anemicand this may be a clue to an ulcer or gastrointestinal pathology. I advised him to take. Omeprazoleas directed. I advised a nuclear stress testand an echocardiogram to assess for ischemia and to assess current valvular status. I advised him to confer with his primary care team and considerfurther evaluation of his stomach and esophagus I advised him not to take meloxicam. His EKG demonstrates right bundle-branch block. The QT intervalis borderline prolonged. There are no compelling changes of ischemia.
--- OUTSIDE RECORDS SUMMARY | 2017-02-05 11:18 | XMS REPORT | Continuity of Care Document ---
Author Author [facility] Organization [facility] Address Unknown Phone Unavailable Support Name Relationship Address Phone KAYCE DE SOUZA MD Caregiver [address] [place] [address] Unavailable MODESTA FUNG MD Caregiver [address] [place] [address] Unavailable BRUCE JAMISON Next Of Kin [address] [phone] Insurance Providers Guarantor Deyanira Jamison Address [address] [place] [address] Email DENIED/NO TO PORT Payer [employer] Policy Number [id number] Subscriber's Name Deyanira Jamison Relationship 18 Self Effective Date 06 Advance Directives Directive Response Recorded Date/Time Advanced Directives Type None 05/15/16 10:02am Chief Complaint and Reason for Visit Chief Complaint Chest Pain Reason for Visit Chest pain Problems Past Problems Medical Problem Onset Date Chest pain Unknown Medications Current Home Medications Medication Dose Units Route Directions Days Qty Instructions Start Date Albuterol Sulfate (Ventolin Hfa 90 Mcg/Actuation) 18 Gm Hfa.aer.ad 1 Puff Oral Inhalation Every 4 Hours as needed for Shortness Of Air/Wheezing 05/15/16 Allopurinol 300 Mg Tablet 300 Mg Oral Daily 07/28/10 Citalopram Hydrobromide (Celexa) 40 Mg Tablet 40 Mg Oral Daily Fluticasone/Salmeterol (Advair 250-50 Diskus) 1 Disk W/Dev Inhaler 1 Puff Oral Inhalation Resp.tx Twice A Day 05/15/16 Lisinopril/Hydrochlorothiazide (Lisinopril-Hctz 20-25MG Tab) 1 Tab Tablet 1 Tab Oral Daily 07/28/10 Loratadine (Allergy) 10 Mg Tablet 10 Mg Oral Daily 05/15/16 Montelukast Sodium 10 Mg Tablet 10 Mg Oral Bedtime 05/15/16 Omeprazole Magnesium (Prilosec Otc) 20 Mg Tablet.dr [place] Tab Oral Bedtime for Acid Reflux 30 Tablet 05/15/16 Ranitidine Hcl 150 Mg Tablet 150 Mg Oral Daily 05/15/16 Sulfamethoxazole/Trimethoprim (Bactrim Ds Tablet) 1 Each Tablet 1 Tab Oral Daily 05/15/16 Vit A/C/E Ac/Znox/Cupric Oxide (Eye Vitamin-Minerals Tablet) 1 Each Tablet 1 Tab Oral Daily 05/15/16 Past Home Medications Medication Directions Ordered Status Lisinopril , 25 Mg Oral Daily 11/26/09 Discontinued Magnesium , 250 Mg Daily Once 09/03/08 Discontinued Mometasone Furoate (Asmanex) 0.24 Gm Aer.pow.ba, Daily Once 11/26/09 Discontinued Olmesartan/Hydrochlorothiazide (Benicar Hct 40-25 Mg Tablet) 1 Tab Tablet, Daily Once 09/03/08 Discontinued Potassium , 1080 Mg Twice A Day 09/03/08 Discontinued Pramipexole Di-Hcl (Mirapex) 0.25 Mg Tablet, Daily Once 09/03/08 Discontinued Social History Social History Problem Response Recorded Date/Time Onset Date Status Hx Substance Use No 05/15/2016 10:02am Not Applicable Not Applicable Hx Alcohol Use Y occas 05/15/2016 10:02am Not Applicable Not Applicable Query Response Start Date Stop Date Smoking Status Former smoker Hospital Discharge Instructions No hospital discharge instructions. Plan of Care Discharge Date 05/15/16 1:05pm Disposition 01 DISCHARGED HOME, SELF-CARE Condition at Discharge Improved Instructions/Education Provided DI for Chest Pain Prescriptions See Medication Section Referrals KAYCE DE SOUZA MD Address: [address] [place] [address] [place] [phone] Note: RANDY IVEY MD Order Date: 1 Week Address: [address] [place] [id number] Note: FOLLOW UP IN NEXT 1-2 WEEKS FOR RE-EVALUATION Additional Instructions/Education 1) CONTINUE CURRENT MEDICATIONS DIRECTED 2) START OMEPRAZOLE 20 MG BY MOUTH DAILY 3) FOLLOW UP WITH DR. IVEY IN NEXT 1-2 WEEKS FOR RE-EVALUATION Functional Status No functional status results. Allergies, Adverse Reactions, Alerts Allergen Type Severity Reaction Status Last Updated No Known Drug Allergies Allergy Unknown Active 05/15/16 Immunizations Query Response on File Recorded Date/Time Hx Influenza Vaccination No 07/27/10 10:17am Hx Pneumococcal Vaccination No 07/27/10 10:17am Hx Influenza Vaccination No 07/27/10 10:17am Vital Signs Acute Vital Signs Vital Response Date/Time Temperature (Fahrenheit) 98.9 deg F (96.8 - 99.1) 05/15/2016 1:05pm Temperature (Calculated Celsius) 37.46844 degrees C (36.0 - 37.3) 05/15/2016 1:05pm Pulse Rate (adult) 51 bpm (60 - 100) 05/15/2016 1:05pm Respiratory Rate 18 breaths/min (10 - 20) 05/15/2016 1:05pm O2 Sat by Pulse Oximetry 95 % (90 - 100) 05/15/2016 1:05pm Blood Pressure 125/59 mm Hg 05/15/2016 1:05pm Height (Feet) 6 feet 05/15/2016 10:02am Height (Inches) 2.00 inches 05/15/2016 10:02am Weight (Kilograms) 104.900 kg 05/15/2016 10:02am Body Mass Index (BMI) 29.0 05/15/2016 10:02am Results Laboratory Results Test Name Result Units Flags Reference Collection Date/Time Result Date/ Time Comments White Blood Count 6.5 T/MM3 4.5-11.0 05/15/2016 10:14am 05/15/2016 10: 29am Red Blood Count 3.75 M/MM3 L 4.50-5.90 05/15/2016 10:14am 05/15/2016 10: 29am Hemoglobin 12.0 GM/DL L 13.5-17.5 05/15/2016 10:1405/15/2016 10:29am Hematocrit 35.9 % L 41-53 05/15/2016 10:14am 05/15/2016 10:29am Mean Corpuscular Volume 95.7 UM3 80-100 05/15/2016 10:14am 05/15/2016 10:29am Mean Corpuscular Hemoglobin 32.0 UUG 26-34 05/15/2016 10:14am 2015 10:29am Mean Corpuscular Hemoglobin Concent 33.4 GM/DL 31-37 05/15/2016 10:14am 05/15/2016 10:29am RDW Standard Deviation 44.9 FL 36.9-50.2 05/15/2016 10:05/15/2016 10:29am Platelet Count 169 T/MM3 130-400 05/15/2016 10:05/15/2016 10:29am Mean Platelet Volume 9.8 UM3 9.4-12.4 05/15/2016 10:05/15/2016 10: 29am Neutrophils (%) (Auto) 65.9 % 33-66 05/15/2016 10:05/15/2016 10: 29am Lymphocytes (%) (Auto) 23.0 % 23-45 05/15/2016 10:05/15/2016 10: 29am Monocytes (%) (Auto) 9.2 % H 0-9.0 05/15/2016 10:05/15/2016 10: 29am Eosinophils (%) (Auto) 1.4 % 0-4 05/15/2016 10:05/15/2016 10:29am Basophils (%) (Auto) 0.3 % 0-2 05/15/2016 10:05/15/2016 10:29am Immature Granulocyte % (Auto) 0.2 % 0.0-0.5 05/15/2016 10:2015 10:29am Absolute Neutrophils (auto) 4.3 T/MM3 1.8-7.7 05/15/2016 10:2015 10:29am Absolute Lymphocytes (auto) 1.5 T/MM3 1-4.8 05/15/2016 10:2015 10:29am Absolute Monocytes (auto) 0.6 T/MM3 0-0.8 05/15/2016 10:142015 10:29am Absolute Eosinophils (auto) 0.1 T/MM3 0-0.5 05/15/2016 10:2015 10:29am Absolute Basophils (auto) 0.0 T/MM3 0-0.2 05/15/2016 10:142015 10:29am Absolute Immature Granulocyte (auto 0.01 T/MM3 0.00-0.03 05/15/2016 10: 05/15/2016 10:29am Prothromb Time International Ratio 1.06 0.99-1.21 05/15/2016 10:05/15/2016 10:29am THERAPUTIC RANGE=2.00-3.00 FOR ANTI-THROMBOSIS THERAPUTIC RANGE=2.50-3.50 FOR IMPLANTED VALVE Icterus Index < 2 0-7 05/15/2016 10:05/15/2016 10:34am Chemistry Specimen Hemolysis 29 H 0-25 05/15/2016 10:05/15/2016 10:34am 26-70: Specimen Exhibited Slight Hemolysis - can falsely elevate K (Potassium) and Urine Protein. Turbidity < 20 0-20 05/15/2016 10:05/15/2016 10:34am Sodium Level 141 MEQ/L 134-144 05/15/2016 10:05/15/2016 10:34am Potassium Level 4.3 MEQ/L 3.6-5 05/15/2016 10:05/15/2016 10:34am Chloride Level 105 MEQ/L 98-107 05/15/2016 10:05/15/2016 10:34am Carbon Dioxide Level 27 MEQ/L 22-30 05/15/2016 10:05/15/2016 10: 34am Anion Gap 9 MEQ/L 5-15 05/15/2016 10:05/15/2016 10:34am Blood Urea Nitrogen 20.0 MG/DL 9-20 05/15/2016 10:05/15/2016 10: 34am Creatinine 1.0 MG/DL 0.8-1.5 05/15/2016 10:05/15/2016 10:34am BUN/Creatinine Ratio 20 RATIO 6-26 05/15/2016 10:05/15/2016 10: 34am Glomerular Filtration Rate Calc 73 05/15/2016 10:05/15/2016 10 :34am Glucose Level 88 MG/DL 75-110 05/15/2016 10:05/15/2016 10:34am Calculated Osmolality 273 MOSM/KG 261-280 05/15/2016 10:2015 10:34am Calcium Level 8.4 MG/DL 8.4-10.2 05/15/2016 10:05/15/2016 10:34am Total Bilirubin 0.40 MG/DL 0.20-1.30 05/15/2016 10:05/15/2016 10: 34am Alkaline Phosphatase 80 U/L 38-126 05/15/2016 10:05/15/2016 10: 34am Total Protein 6.7 G/DL 6.3-8.2 05/15/2016 10:05/15/2016 10:34am Albumin 3.7 G/DL 3.5-5.0 05/15/2016 10:05/15/2016 10:34am Globulin 3.0 G/DL 2.4-3.6 05/15/2016 10:05/15/2016 10:34am Albumin/Globulin Ratio 1.2 RATIO 1.1-2.2 05/15/2016 10:05/15/2016 10:34am Aspartate Amino Transf (AST/SGOT) 21 U/L 17-59 05/15/2016 10:05/15 10:34am Alanine Aminotransferase (ALT/SGPT) 14 U/L L 21-72 05/15/2016 10: 10:34am Troponin I < 0.012 ng/ml 0-0.12 05/15/2016 10:05/15/2016 10:46am Troponin values with a difference of 55% increase from orginal troponin value represent a true biological DELTA value. (%increase Calc=Orginal Troponin value, divided by subsequent Troponin value, multiplied by 100) FK-Avl-R-Type Natriuretic Peptide 561 PG/ML H 0-175 05/15/2016 10:05/15/2016 10:46am Rule in cut points: <50 years old=450; 50-75 years old=900; >75 years old=1800; When utilizing ProBNP rule-in cut points, adjustment for impaired renal function is typically not required. Magnesium Level 2.2 MG/DL 1.6-2.3 05/15/2016 10:05/15/2016 10: 34am Thyroid Stimulating Hormone (TSH) 2.29 MIU/L 0.47-4.68 05/15/2016 10: 05/15/2016 11:04am Name: DEYANIRA JAMISON Unit #: [id number] : 1940 Sex: M Admit Date: Loc / Svc: ED Discharge Date: DIAGNOSTIC IMAGING REPORT Report #: [id number] [facility] TAWNY [place] INDICATION: ITS.REASON: chest pain PROCEDURE: CHEST 2-VIEWS UPRIGHT (PA \T\ LAT) Encounter: Initial COMPARISON: None FINDINGS: The lungs are clear without evidence of focal abnormal airspace opacity. There is no pleural effusion or pneumothorax. The heart size, mediastinal contours and pulmonary vascularity are within normal limits. There is no significant skeletal abnormality. IMPRESSION: No acute cardiopulmonary disease. . Procedures No known history of procedures. Encounters Encounter Location Arrival/Admit Date Discharge/Depart Date Attending Provider Departed Emergency Room [facility] 05/15/16 10:02am 05/15/16 1: 05pm MODESTA FUNG MD Recent Diagnosis
--- NOTE | 2017-02-05 11:23 | NUR ---
EKG EKG TAKEN AND GIVEN TO DR ROLDAN
--- NOTE | 2017-02-05 11:29 | ERPDOC ---
Departure Disposition Decision Date: February 05, 2017 Disposition Decision Time: 13:49 Disposition: 01 DISCHARGED HOME, SELF-CARE Impression Impression Impression: Primary Impression: Atypical chest pain Severity: Moderate Condition: Improved Seen By: Physician only Referrals: KAYCE WYNNE MD (PCP) 3 Days Patient Instructions: Noncardiac Chest Pain (ED) Problems/Meds/Labs Reviewed?: Yes Medications reviewed and manag: Yes Additional Instructions: We have evaluated you for emergent and life-threatening causes of your chest pain, but we did not find any. Continue to take your medications as prescribed and follow up with Dr. Wynne to try to find the cause of your symptoms. Follow up with Dr. Jimenez as previously arranged. Follow up care ordered?: Yes Mental Status: Alert, Oriented HPI - Chest Pain General Chief Complaint: Chest Pain Stated Complaint: CHEST PAIN Time Seen by Provider: 11:22 Source: patient Exam Limitations: no limitations HPI - Chest Pain Initial Comments 76yo man presents to the ER for substernal CP. Pt has a dull, substernal CP. Pt has this intermittently; has been worked up numerous times by Dr. Jimenez for identical complaints. No dx to date. Sx started at 0430 this AM; have not improved since. Pt took lisinopril and albuterol without relief. Occurred At: work Onset/Timing: Rapid Duration: 6-12 hrs Pain/Severity Scale: Now & Worst: 5/10 Activities at Onset/Context: activity Location: substernal Quality: 'pain' Associated Symptoms: denies symptoms Chest Pain Radiation: no radiation Nitro Today/Relief: no nitro taken today Aspirin Treatment Today: contraindicated Aspirin contraindicated becaus: Other (Pt refusing) Prior Chest Pain/Cardiac Nelia: non-cardiac Hx of Similar Symptoms: Yes Allergies: Coded Allergies: No Known Drug Allergies (Verified Allergy, Unknown, 05/15/16) Viagra/ED med in past 36 hrs: No Past History Patient Medical History (1) Mitral valve prolapse Past Medical History Metabolic: gout, hypertension ENMT: allergies Respiratory: asthma GI: GERD Psychological: depression Vaccines Hx Influenza Vaccination: No Hx Pneumococcal Vaccination: No Review of Systems Cardiovascular Cardiac: chest pain All other Systems All Other Systems: Reviewed and Negative Physical Exam General General Nourishment: well nourished, well developed, appears stated age, no acute distress, adult, obese General Body Habitus: well groomed Vitals and Pain Weight: Kilograms: Height (feet): 6 Height (inches): 2.00 Triage Pain Scale: RN VS reviewed by Provider: Yes Normal Exams: Head: Normocephalic w/o trauma Eyes: Pupils are PERRLA w/ EOMI, No scleral icterus, irritation ENMT: No facial trauma, nasal exudates, pharyngeal erythema Neck: Full range of motion, without adenopathy, JVD Lymphatic: No lymphadenopathy Musculoskeletal: No tenderness, or deformity noted Integumentary: No rashes, hives, or bruising noted Neurologic: Patient is alert, and oriented Psychiatric: Patient exhibits, appropriate attention Respiratory (brief) Respiratory: FOUND: clear all benavides, equal bilaterally, symmetrical, NOT FOUND : rales, wheezes Cardiovascular (brief) Cardiac: FOUND: click (Mid systolic), regular rate, regular rhythm, NOT FOUND: gallop, murmur, pedal edema, peripheral edema, rub Capillary Refill: <2 sec Pulses: all distal extremities, equal, strong Abdomen (brief) Abdominal Brief: FOUND: bowel normo active x4, soft, NOT FOUND: distended, hepatosplenomegaly, pulsatile mass, tender Differential Diagnoses Considering: Acute NC, Anxiety/Panic, CHF, Costochondritis, Esophageal Spasm, GERD, Hypertensive Emergency, Pericarditis, Pneumothorax, Pneumonia, PSVT, Pulmonary Edema, Muscle Spasm Progress Results/Orders Orders Lab Results Medications Current ED Medications Aspirin (ASA) 324 mg O ONCE PO ; Start 02/05/17 at 11:30; Stop 02/05/17 at 11:31 ; Status DC Nitroglycerin (Nitrostat) 0.4 mg Q5MIN PRN SL CHEST PAIN Last administered on t 11:45; Start 02/05/17 at 11:30; Stop 02/05/17 at 15:22; Status DC Progress Progress Discussed pt with Dr. Jimenez - magen concerning findings on Hx or PE. Lab/rad findings are stable/chronic. Repeat troponin is still not negative, but is lower than initial. At this time, pt is stable and CP free. Will d/c to home with good RTC precautions. Discussed dx, prognosis, tx, and need for f/u with pt , who voiced understanding. EKG EKG : Rate: <60 Rhythm: sinus [place]: normal QRS: RBBB Intervals: normal ST/T: normal Interpreted by: signing physician Consult/PCP Consult/PCP : Physician Contacted: Dr. Jimenez Time Called: 12:50 Time of first response: 12:58 Type of discussion: Phone Consult/PCP Discussion Details Discussed case with Dr. Jimenez - pt has never been without a complaint of one kind or another. No significant lab abn's off of baseline. If pt appears ill, may observe at [facility]. If pt does not appear ill, may safely be d/c'ed with close f /u. Xray Xray : Xray: CXR Portable Interpretation: Abnormal (Pulm edema), Interpreted by Ar FESTUS ROLDAN DO February 05, 2017 11:29 11:30 Nitroglycerin PHA 02/05/17 In Process (Nitrostat) 11:30 Troponin I W LAB 02/05/17 Complete Hemolysis Index 13:01 Lab Results Laboratory Tests Test 02/05/17 11:30 02/05/17 13:12 White Blood Count 6.6T/MM3 Red Blood Count 3.09M/MM3 Hemoglobin 10.0GM/DL Hematocrit 30.6% Mean Corpuscular Volume 99.0UM3 Mean Corpuscular Hemoglobin 32.4UUG Mean Corpuscular Hemoglobin Concent 32.7GM/DL RDW Standard Deviation 45.8FL Platelet Count 187T/MM3 Mean Platelet Volume 8.9UM3 Immature Granulocyte % (Auto) 0.2% Neutrophils (%) (Auto) 65.4% Lymphocytes (%) (Auto) 21.5% Monocytes (%) (Auto) 10.1% Eosinophils (%) (Auto) 2.3% Basophils (%) (Auto) 0.5% Absolute Immature Granulocyte (auto 0.01T/MM3 Absolute Neutrophils (auto) 4.3T/MM3 Absolute Lymphocytes (auto) 1.4T/MM3 Absolute Monocytes (auto) 0.7T/MM3 Absolute Eosinophils (auto) 0.2T/MM3 Absolute Basophils (auto) 0.0T/MM3 Prothromb Time International Ratio 1.17 Turbidity < 20 Sodium Level 145MEQ/L Potassium Level 3.5MEQ/L Chloride Level 111MEQ/L Carbon Dioxide Level 23MEQ/L Anion Gap 11MEQ/L Blood Urea Nitrogen 17.0MG/DL Creatinine 1.2MG/DL Glomerular Filtration Rate Calc 59 BUN/Creatinine Ratio 14RATIO Glucose Level 96MG/DL Calculated Osmolality 281MOSM/KG Calcium Level 8.2MG/DL Icterus Index < 2 Troponin I 0.040ng/ml 0.033ng/ml XD-Rng-X-Type Natriuretic Peptide 2190PG/ML Chemistry Specimen Hemolysis < 15 < 15 Medications Current ED Medications Aspirin (ASA) 324 mg O ONCE PO ; Start 02/05/17 at 11:30; Stop 02/05/17 at 11:31 ; Status DC Nitroglycerin (Nitrostat) 0.4 mg Q5MIN PRN SL CHEST PAIN Last administered on t 11:45; Start 02/05/17 at 11:30 Progress Progress Discussed pt with Dr. Jimenez - no concerning findings on Hx or PE. Lab/rad findings are stable/chronic. Repeat troponin is still not negative, but is lower than initial. At this time, pt is stable and CP free. Will d/c to home with good RTC precautions. Discussed dx, prognosis, tx, and need for f/u with pt , who voiced understanding. EKG EKG : Rate: <60 Rhythm: sinus [place]: normal QRS: RBBB Intervals: normal ST/T: normal Interpreted by: signing physician Consult/PCP Consult/PCP : Physician Contacted: Dr. Jimenez Time Called: 12:50 Time of first response: 12:58 Type of discussion: Phone Consult/PCP Discussion Details Discussed case with Dr. Jimenez - pt has never been without a complaint of one kind or another. No significant lab abn's off of baseline. If pt appears ill, may observe at [facility]. If pt does not appear ill, may safely be d/c'ed with close f /u. Xray Xray : Xray: CXR Portable Interpretation: Abnormal (Pulm edema), Interpreted by FESTUS Santana DO February 05, 2017 11:29
[2017-02-05] MEDS ORDERED: ASPIRIN 81 MG CHEWABLE TABLET PO ONE (11:30)
--- NOTE | 2017-02-05 11:30 | NUR ---
IV IVL STARTED AND BLOOD COLLECTED AND GIVEN TO LAB
--- OUTSIDE RECORDS SUMMARY | 2017-02-05 11:34 | XMS REPORT | Continuity of Care Document ---
Author Author [facility] Organization [facility] Address Unknown Phone Unavailable Allergies Active Description [...] Status Pt. Type Provider Facility Loc./Unit Complaint [id number] 04/07/2014 11:55:00 2013 14:30:00 DIS Emergency Poncho SERRA, Jarrod Kurtz [facility] W.EDS
[2017-02-05 11:36] LABS: BASOPHILS % (AUTO) 0.5 % (0-2); EOSINOPHILS # (AUTO) 0.2 T/MM3 (0-0.5); EOSINOPHILS % (AUTO) 2.3 % (0-4); HCT - HEMATOCRIT 30.6 % (41-53); IMMATURE GRANULOCYTE # (AUTO) 0.01 T/MM3 (0.00-0.03); IMMATURE GRANULOCYTE % (AUTO) 0.2 % (0.0-0.5); LYMPHOCYTES # (AUTO) 1.4 T/MM3 (1-4.8); LYMPHOCYTES % (AUTO) 21.5 % (23-45); MEAN CORPUSCULAR HGB 32.4 UUG (26-34); MEAN CORPUSCULAR HGB CONC(MCHC 32.7 GM/DL (31-37); MEAN PLATELET VOLUME 8.9 UM3 (9.4-12.4); MONOCYTES # (AUTO) 0.7 T/MM3 (0-0.8); MONOCYTES % (AUTO) 10.1 % (0-9.0); NEUTROPHILS #(AUTO)-ABSOLUTE 4.3 T/MM3 (1.8-7.7); NEUTROPHILS % (AUTO) 65.4 % (33-66); RED BLOOD COUNT 3.09 M/MM3 (4.50-5.90); WBC - WHITE BLOOD COUNT 6.6 T/MM3 (4.5-11.0)
[2017-02-05 11:40] LABS: INR 1.17 (0.76-1.04); PROTHROMBIN TIME 12.7 SEC (9.31-12.49)
[2017-02-05] MEDS: NITROGLYCERIN 0.4 MG SUBLINGUAL TABLET SL PRN ×2 (11:40→11:45)
--- NOTE | 2017-02-05 11:40 | NUR ---
MEDICATION NITRO 0.4MG SL ADMINISTERED
[2017-02-05 11:44] LABS: ANION GAP 11 MEQ/L (5-15); BUN/CREATININE RATIO 14 RATIO (6-26); CALCIUM 8.2 MG/DL (8.4-10.2); CHLORIDE 111 MEQ/L (98-107); CO2 - CARBON DIOXIDE 23 MEQ/L (22-30); CREATININE 1.2 MG/DL (0.8-1.5); GLOMERULAR FILTRATION RATE 59; GLUCOSE 96 MG/DL (75-110); POTASSIUM 3.5 MEQ/L (3.6-5); SODIUM 145 MEQ/L (134-144)
--- NOTE | 2017-02-05 11:45 | NUR ---
COMFORT/MED PT RATES PAIN 2/10. NITRO 0.4MG SL ADMINISTERED. PT DID COMPLAIN OF A HEADACHE AFTER THE FIRST NITRO
--- NOTE | 2017-02-05 11:50 | NUR ---
COMFORT PT DENIES PAIN AT THIS TIME
[2017-02-05 11:57] LABS: PROBNP 2190 PG/ML (0-175)
--- NOTE | 2017-02-05 12:02 | DI ---
Indication: ITS.REASON: CP Procedure: CHEST 1 VIEW: Encounter: Initial Comparison: 05/15/2016 Technique: A single portable AP chest radiograph was obtained. Findings: Lungs and airways: Normal lung volumes. No focal airspace consolidation. Pulmonary vascular redistribution. Pleura: No pleural effusion or pneumothorax. Heart and mediastinum: Cardiomegaly. Aortic atherosclerosis. Osseous structures and soft tissues: No acute osseous abnormality is seen. Degenerative arthrosis of the shoulders. Postoperative changes of the left shoulder. Impression: Cardiomegaly with pulmonary vascular redistribution suggesting early congestive changes. .
--- NOTE | 2017-02-05 13:05 | NUR ---
REPORT REPORT TO AND CARE ASSUMED BY FIORDALIZA MATAMOROS
--- NOTE | 2017-02-05 13:45 | NUR ---
PHYSICIAN DR. ROLDAN AT BEDSIDE.
[2017-02-05 14:00] VITALS: BP 147/69; PULSE 50; RESP 12; TEMP 98; O2SAT 97
--- NOTE | 2017-02-05 14:00 | NUR ---
DEPART Pt EDUCATION REGARDING HIS CHEST PAIN AND EMERGENT WORK-UP. ADVISED TO F/U WITH PCP THIS WEEK AND TO CONTINUE HOME MEDS ORDERED. IV DC'D--CATHETER INTACT. Pt LEFT ED AMBULATORY WITH .
== END 2017-02-05 14:00 | disposition home or self-care (01) ==
LOC: ED 11:11
DX: R07.89 Other chest pain (principal); I10 Essential (primary) hypertension
CPT/HCPCS: 36415; 71010; 80048; 83880; 84484; 85025; 85610; 93005; 99284; A9270